=== PATIENT | female | born 1960 | race Caucasian/White ===

== ENCOUNTER 2021-03-26 12:34 | Outpatient (CLI) | payer MEDICARE, SELFPAY ==
--- NOTE | ~2021-03-26 | XR_ITS ---
XR knee LT min 4V DATE: 03/26/2021 12:53 INDICATION: Left knee pain TECHNIQUE: 4 views COMPARISON: None FINDINGS: There is prominent osteoarthritic change including prominent joint space narrowing and mild particular spurring at the medial compartment. There is mild to moderate osteoarthritis at the pineda lofemoral compartment. Osteopenia. No fracture, dislocation, periosteal reaction or bone destruction. No radiopaque intra-articular loos e body or chondrocalcinosis is evident. No knee joint effusion is evident. IMPRESSION: Osteopenia Osteoarthritic arthritis involving patellofemoral and particularly the medial compartments Reviewed, dictated and finalized at location A. IMPRESSION: Osteopenia Osteoarthritic arthritis involving patellofemoral and particularly the medial c ompartments
== END 2021-03-26 12:35 | disposition home or self-care (01) ==
LOC: ANHBWCIMG 12:35
PROVIDERS: Visit Provider Orthopaedic Surgery
DX: M25.562 Pain in left knee (principal); M85.862 Other specified disorders of bone density and structure, left lower leg; M17.12 Unilateral primary osteoarthritis, left knee
CPT/HCPCS: 73564

== ENCOUNTER 2021-05-18 12:28 | Outpatient (CLI) | payer MEDICARE, SELFPAY ==
--- NOTE | ~2021-05-18 | CT_ITS ---
EXAMINATION: CT abdomen pelvis wo/w con DATE: 05/18/2021 13:21 INDICATION: Gross hematuria TECHNIQUE: Computed tomography (CT) of the abdomen and pelvis was performed without and subsequently with 130 cc Omnipaque 350 intravenous contrast. Automated exposure control and iterative reconstructi on technique were employed. Exam dose: 2731.61 mGy-cm total exam DLP. COMPARISON: 03/28/2019 CT abdomen pelvis 05/28/2021 KUB FINDINGS: The lung bases are clear of infiltrate or consolidation. Normal heart size. No pericardial or pleural effusion. Small sliding hiatal hernia. Postoperative changes of the stomach. No hepatic, splenic, pancreatic, adrenal space-occupying mass lesion. The gallbladder is present. No bile duct or pancreatic duct dilatation. Probable 7 mm upper pole right renal cyst. There are 4 left renal cyst, the largest measuring up to approximately 1.7 cm. No suspicious renal mass lesion or filling defect of the renal collecting systems or ureters or urina ry bladder is evident. There are 2 pinpoint nonobstructing calculi of the right kidney and one pinpoint nonobstructing calcu seda of the left kidney. No ureteral calculus or hydroureteronephrosis. Normal caliber of the abdominal aorta. No intraperitoneal or retroperitoneal or pelvic mass lesion or adenopathy or ascites. Normal appendix. There are numerous diverticula of the sigmoid and descending colon, splenic flexure, occasional trans verse colon and ascending colon diverticula. There is no CT evidence of diverticulitis. No bowel obst ruction, bowel wall thickening, pneumatosis or intraperitoneal free air. The uterus is unremarkable except for probable small calcified uterine fibroids. The adnexal areas ar e unremarkable. The urinary bladder appears normal. Degenerative changes of the thoracic and lumbar spine including severe degenerative disc disease at L 5-S1 in particular. IMPRESSION: 2 pinpoint nonobstructing right renal calculi and one pinpoint nonobstructing left renal calculus Renal cysts, primarily on the left, measuring up to 1.7 cm Diverticulosis of left and right colon; no CT evidence of diverticulitis Small sliding hiatal hernia Reviewed, dictated and finalized at Location A. Reviewed, dictated and finalized at location A. IMPRESSION: 2 pinpoint nonobstructing right renal calculi and one pinpoint non obstructing left renal calculus Renal cysts, primarily on the left, measuring up to 1.7 cm Diverticulosis of left and right colon; no CT evidence of diverticulitis Small sliding hiatal hernia
--- NOTE | ~2021-05-18 | XR_ITS ---
XR abdomen/kub 1V 05/18/2021 12:51 INDICATION: Hematuria TECHNIQUE: KUB COMPARISON: 06/24/2019 FINDINGS: Bowel gas pattern is normal. There is no evidence of free air, mass, organomegaly, ascites or obstruction. No abnormal calculi are seen. There are pelvic calcifications, likely phleboliths. The bones appear intact. IMPRESSION: 1: No acute abdominal abnormality identified. Reviewed, dictated and finalized at location A.
[2021-05-18 13:06] LABS: Estimated Glomerular Filt Rate 51
== END 2021-05-18 12:29 | disposition home or self-care (01) ==
LOC: ANHIMG 12:31
PROVIDERS: PCP Family Medicine; Visit Provider Nurse Practitioner Adult Health
DX: R31.0 Gross hematuria (principal); N28.1 Cyst of kidney, acquired; K44.9 Diaphragmatic hernia without obstruction or gangrene; K57.30 Diverticulosis of large intestine without perforation or abscess without bleeding
CPT/HCPCS: 74018; 74178; Q9967

== ENCOUNTER 2022-05-31 13:09 | Emergency (ER) | payer MEDICARE, SELFPAY ==
--- NOTE | 2022-05-31 13:17 | ED.FEMALEGU ---
HPI - Female Genitourinary General Chief complaint: Urogenital-Female Stated complaint: Urinary Problem Time Seen by Provider: 05/31/22 13:18 Source: patient and RN notes reviewed History of Present Illness HPI Narrative: Patient is 61-year-old female who presents the urgent care with complaints of a possible UTI. Patient states that she has had some burning, frequency, right flank pain and some suprapubic pressure for approximately 2 months off-and-on. Patient states that it is gotten worse in the last 2 weeks. Patient states that she takes Tylenol PM daily for her pains. States that she does have a history of kidney stones and last she noted the CT showed 3 stones floating in the bladder . Patient denies any blood in the urine, nausea, vomiting, fever. No other acute complaints. No acute distress noted. Patient aware of the plan of care. Some parts of this dictation were generated by voice recognition software and may contain typographical and/or grammatical inaccuracies. Related Data Allergies Allergy/AdvReac Type Severity Reaction Status Date / Time Iodinated Contrast Media Allergy Unknown Itching Verified 03/26/21 12:59 NSAIDS (Non-Steroidal AdvReac Unknown GASTRIC Verified 03/26/21 12:59 Anti-Inflamma BYPASS-NOT TO TAKE EVER GAS AdvReac Unknown N&V Uncoded 03/26/21 12:59 Review of Systems Review of Systems: CONSTITUTIONAL: Denies fever, chills, or sweats. EYES: Denies visual changes, redness, or discharge. ENT: Denies rhinorrhea, congestion, sore throat, or otalgia. CARDIOVASCULAR: Denies chest pain, palpitations, or edema. RESPIRATORY: Denies cough or dyspnea. GASTROINTESTINAL: Denies abdominal pain, nausea, vomiting, or diarrhea. GENITOURINARY: Reports of dysuria, urinary frequency and suprapubic pressure SKIN: Denies rash or itching. MUSCULOSKELETAL: Reports of right flank pain NEUROLOGIC: Denies headache, numbness, or weakness. All other systems reviewed are negative, except as documented in HPI. COUNTS INCLUDE 234 BEDS AT THE [facility] Past Medical History Medical History (Updated 05/31/22 @ 13:49 by KODY Asher) Arthritis Diabetes GERD (gastroesophageal reflux disease) History of adverse reaction to anesthesia Kidney stones Osteoarthritis of left knee Osteoporosis Rheumatoid arthritis Weakness of left lower extremity Wears glasses Weight gain Surgical History Surgical History (Updated 03/27/21 @ 08:29 by Catherine Vivar, RT(R)) History of right knee joint replacement 2018, Dr. Campos Family History Family History (Updated 03/27/21 @ 08:29 by Catherine Vivar RT(R)) Sibling Carcinoma of colon Mother Acute myocardial infarction Other Arthritis Cerebrovascular accident Neuropathy Social History Social History (Updated 03/27/21 @ 08:30 by Catherine Vivar RT(R)) Smoking status: Never smoker Alcohol intake: current Drinks per week: 1 Gender identity (if verbalized by the patient): Female Comments At the time of my signature, I reviewed and agree with the nursing past medical, surgical, social, and family history. There is no relevant family history pertinent to the patient complaint. Exam Narrative: GENERAL: This is a well-nourished, well-developed patient, in no apparent distress. HEAD: normocephalic, atraumatic. EYES: PERRL. Sclera clear/white. Vision is grossly intact. EARS: External ears normal NOSE: External nose normal with no obvious nasal discharge, nares without redness, no rhinorrhea. THROAT: Mucous membranes moist NECK: Neck supple CARDIOVASCULAR: Regular rate and rhythm without murmurs, gallops, or rubs. RESPIRATORY: Clear to auscultation. Breath sounds equal bilaterally. No wheezes, rales, or rhonchi. GASTROINTESTINAL: Abdomen soft, mild suprapubic tenderness, nondistended. Bowel sounds are active.. SKIN: warm, intact with no suspicious lesions or rash, good texture and turgor. NEURO: awake, alert, and oriented to person, place and time. There wer
[2022-05-31 13:21] VITALS: BP 171/77; PULSE 56; RESP 14; TEMP 36.6; O2SAT 98
== END 2022-05-31 13:53 | disposition home or self-care (01) ==
PROVIDERS: Emergency Provider Nurse Practitioner Family; PCP Family Medicine
DX: R82.90 Unspecified abnormal findings in urine (principal); Z87.442 Personal history of urinary calculi; E11.9 Type 2 diabetes mellitus without complications; K21.9 Gastro-esophageal reflux disease without esophagitis; M81.0 Age-related osteoporosis without current pathological fracture; M06.9 Rheumatoid arthritis, unspecified; M17.12 Unilateral primary osteoarthritis, left knee
CPT/HCPCS: 81003; 87077; 87086; 87186; 99213; G0463

== ENCOUNTER 2022-09-26 13:06 | Outpatient (CLI) | payer MEDICARE, SELFPAY ==
[2022-09-26 13:33] LABS: Hematocrit 45.7 % (37.0-47.0); Hemoglobin 15.6 g/dL (12.0-15.0); Mean Corpuscular HGB Conc 34.1 g/dl (32-36); Mean Corpuscular Hemoglobin 32.2 pg (26-34); Mean Corpuscular Volume 94.4 fl (80-100); Mean Platelet Volume 9.9 fl (7.4-10.4); Platelet Count Result 187 k/mm3 (150-375); Red Blood Count 4.84 M/mm3 (4.2-5.4); Red Cell Distribution Width 13.2 % (11.5-14.5); White Blood Count 6.8 K/mm3 (4.5-10.0)
[2022-09-26 13:44] LABS: Alanine Aminotransferase 33 U/L (6-35); Albumin Level 4.4 g/dL (3.5-5.1); Alkaline Phosphatase 109 U/L (38-126); Anion Gap 9 mmol/L (8-16); Aspartate Amino Transferase 17 U/L (14-36); Bilirubin,Total 0.9 mg/dL (0.2-1.3); Blood Urea Nitrogen 19 mg/dL (7-17); Carbon Dioxide 26 mmol/L (22-30); Chloride 104 mmol/L (98-107); Cholesterol 275 mg/dL (0-200); Estimated Glomerular Filt Rate 56; Glucose 159 mg/dL (65-110); HDL Direct 59 mg/dL; Potassium 4.3 mmol/L (3.4-5.0); Sodium 139 mmol/L (137-145); Triglycerides 179 mg/dL (<150)
[2022-09-26 13:55] LABS: LDL Cholesterol Direct 169 mg/dL
[2022-09-26 14:06] LABS: Hemoglobin A1C 7.5 % (<5.7)
[2022-09-26 14:13] LABS: Free T4 Free Thyroxine 1.22 ng/mL (0.78-2.19)
== END 2022-09-26 13:07 | disposition home or self-care (01) ==
PROVIDERS: PCP Family Medicine; Visit Provider Physician Assistant Medical
DX: E78.2 Mixed hyperlipidemia (principal); R73.03 Prediabetes; R53.83 Other fatigue; E03.9 Hypothyroidism, unspecified
CPT/HCPCS: 36415; 80053; 80061; 83036; 84439; 84443; 85027

== ENCOUNTER 2023-04-08 12:50 | Outpatient (CLI) | payer MEDICARE, SELFPAY ==
[2023-04-08 13:22] LABS: Alanine Aminotransferase 29 U/L (6-35); Albumin Level 4.3 g/dL (3.5-5.1); Alkaline Phosphatase 94 U/L (38-126); Anion Gap 6 mmol/L (8-16); Aspartate Amino Transferase 17 U/L (14-36); Bilirubin,Total 0.7 mg/dL (0.2-1.3); Blood Urea Nitrogen 14 mg/dL (7-17); Calcium 8.7 mg/dL (8.4-10.2); Carbon Dioxide 24 mmol/L (22-30); Chloride 108 mmol/L (98-107); Cholesterol 232 mg/dL (0-200); Estimated Glomerular Filt Rate > 60; Glucose 126 mg/dL (65-110); HDL Direct 61 mg/dL; Potassium 4.4 mmol/L (3.4-5.0); Sodium 138 mmol/L (137-145); Triglycerides 136 mg/dL (<150)
[2023-04-08 13:33] LABS: LDL Cholesterol Direct 142 mg/dL
[2023-04-08 13:41] LABS: Vitamin D 25 Hydroxy 27.7 ng/mL
== END 2023-04-08 12:51 | disposition home or self-care (01) ==
PROVIDERS: PCP Family Medicine; Visit Provider Physician Assistant Medical
DX: E55.9 Vitamin D deficiency, unspecified (principal); E78.2 Mixed hyperlipidemia; E53.8 Deficiency of other specified B group vitamins; E03.9 Hypothyroidism, unspecified
CPT/HCPCS: 36415; 80053; 80061; 82306; 82607; 84443

== ENCOUNTER 2023-04-18 07:56 | Outpatient (CLI) | payer MEDICARE, SELFPAY ==
[2023-04-18 08:27] LABS: Bacteria Urine 3+ /hpf; Non Pathogenic Casts 0-2; RBC Urine 0-2 /hpf (0-2); Squamous Epithelial Cell Urine Occasional /hpf (Few); WBC Urine 21-50 /hpf
[2023-04-18 08:47] LABS: Appearance Urine Cloudy (Clear); Bilirubin Urine Negative (Negative); Blood Urine Negative (Negative); Color Urine Yellow (Yellow); Glucose Urine UA Negative (Negative); Ketones Urine Negative (Negative); Leukocyte Esterase Ur 1+ LEU/UL (Negative); Nitrate Urine Positive (Negative); Protein Urine Negative (Negative); Specific Grav Ur 1.024 (1.001-1.035)
[2023-04-18 08:53] LABS: Add Urine Microscopic? YES
[2023-04-18 09:05] LABS: Hemoglobin A1C 6.3 % (<5.7)
[2023-04-19 06:58] LABS: Creatinine Urine 195.4 mg/dL
[2023-04-19 07:02] LABS: MALB Creatinine Ratio 3.8 mg/g (0-30); Microalbumin Urine Random 7.4 mg/L (0-16.7)
== END 2023-04-18 07:57 | disposition home or self-care (01) ==
LOC: ANHLAB 07:57
PROVIDERS: PCP Family Medicine; Visit Provider Physician Assistant Medical
DX: R30.0 Dysuria (principal); E11.9 Type 2 diabetes mellitus without complications
CPT/HCPCS: 36415; 81001; 82043; 83036; 87077; 87086; 87186

== ENCOUNTER 2024-01-03 14:50 | Emergency (ER) | payer MEDICARE, SELFPAY ==
--- NOTE | ~2024-01-03 | CT_ITS ---
EXAMINATION: CT abdomen pelvis wo con DATE: 01/03/2024 16:06 INDICATION: LLQ abdominal pain/nausea x1 week TECHNIQUE: Computed tomography (CT) of the abdomen and pelvis was performed without intravenous contr ast. Automated exposure control and iterative reconstruction technique were employed. The dose-length product was 1312.09 mGy-cm. COMPARISON: 05/18/2021. FINDINGS: Lower thorax: Unremarkable Liver: The superior most aspect of the liver dome is excluded from the [id number]. Enlarged liver. Biliary/Gallbladder: Dependent sludge or stones. Focal subcentimeter hyperdensity in the gallbladder fundus may represent a stone or polyp. No bile duct dilation. Pancreas: No mass or duct dilation. Spleen: Normal. Adrenals:No mass. Kidneys: No suspicious mass, obstructing stone, or hydronephrosis. Simple left renal cysts. Punctate bilateral nonobstructing calculi. GI tract: Prior gastric surgery. No small or large bowel dilation. Normal appendix. Multiple colonic diverticuli. Inflamed diverticulum in the mid sigmoid in the left lower quadrant. Mesentery/Peritoneum: No ascites, mass, or free air. Inflammatory stranding and segmental areas of di lation of a mesenteric vein extending from the sigmoid diverticulitis, nearly to the superior mesente apryl vein bifurcation. Retroperitoneum: No mass. Atherosclerotic abdominal aortic and/or arterial calcifications. Pelvis: Decompressed urinary bladder. Calcified fibroids. Normal ovaries. Soft Tissues: Soft tissues and body wall unremarkable. Bones: No acute osseous finding. IMPRESSION: Hepatomegaly. 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 Reviewed, dictated and finalized at location K. CCO DRUMMER
[2024-01-03 14:59] VITALS: BP 155/85; PULSE 79; RESP 20; TEMP 36.9; O2SAT 94
[2024-01-03 15:06] LABS: Glucose Point of Care 187 mg/dl (65-105)
--- NOTE | 2024-01-03 15:13 | ED.ABDPAIN ---
HPI - Abdominal Pain General Chief Complaint: Abdominal Pain Stated Complaint: abdominal pain Time Seen by Provider: 01/03/24 14:56 Source: patient Mode of arrival: ambulatory Limitations: no limitations History of Present Illness HPI narrative: patient is a 63-year-old female with significant past medical history that presents today for abdominal pain. Patient has had abdominal pain in the left lower quadrant for the last few days now. She states that as she has not been able to he is only able to drink water. She says she dries he is when she tries to eat. She feels very bloated has left lower quadrant abdominal pain. She does have a history of diverticulitis in the past this was a long time ago however. She is diabetic has not been checking her sugars as well. MD elicited complaint: abdominal pain Pertinent past history: diverticulitis Onset (ago): week(s) Pain Consistency: constant Location: LLQ Severity: mild Quality: aching Radiation: epigastric Migration to: no migration Exacerbating factors: nothing Relieving factors: nothing Associated symptoms: nausea and vomiting Related Data Allergies Allergy/AdvReac Type Severity Reaction Status Date / Time Iodinated Contrast Media Allergy Unknown Itching Verified 01/03/24 14:58 NSAIDS (Non-Steroidal AdvReac Unknown GASTRIC Verified 01/03/24 14:58 Anti-Inflamma BYPASS-NOT TO TAKE EVER Review of Systems Review of Systems: All systems reviewed & are unremarkable except as noted in HPI and below Constitutional: Constitutional: Reports as per HPI Eyes: Eyes: Reports no additional eye complaints ENT: Reports system reviewed and no additional complaints, except as documented Cardiovascular: Cardiovascular: Reports no additional cardiovascular complaints Respiratory: Respiratory: Reports no additional respiratory complaints Gastrointestinal: Gastrointestinal: Reports as per HPI, Reports abdominal pain, Reports constipation, Reports nausea and Reports vomiting Musculoskeletal: Musculoskeletal: Reports no additional musculoskeletal complaints Integumentary/Breasts: Skin/Breast: Reports system reviewed and no additional complaints, except as docu Neurologic: Reports system reviewed and no additional complaints, except as documented Psychiatric: Psychiatric: Reports no additional psychiatric complaints Endocrine: Endocrine: Reports no additional endocrine complaints Hematologic/Lymphatic: Hematologic/Lymphatic: Reports no additional hematologic/lymphatic complaints Allergic/Immunologic: Allergic/Immunologic: Reports no additional allergic/immunologic complaints PMFSH Past Medical History Medical History Arthritis Diabetes GERD (gastroesophageal reflux disease) History of adverse reaction to anesthesia History of bruising easily Hypothyroid Hypothyroidism (acquired) Kidney stones Morbid obesity with BMI of 40.0-44.9, adult Obesity (BMI 30-39.9) Osteoarthritis of left knee Osteoporosis Rheumatoid arthritis Weakness of left lower extremity Wears glasses Weight gain Surgical History Surgical History History of carpal tunnel release History of right knee joint replacement 2017, Dr. Campos History of sleeve gastrectomy 2013 Family History Family History Sibling Carcinoma of colon Mother Acute myocardial infarction Diabetes mellitus Hypertension Father Hypertension Alcoholism Grandparent Diabetes mellitus Grandparent Breast cancer Other Arthritis Cerebrovascular accident Neuropathy Social History Social History Smoking status: Never smoker Alcohol intake: current Alcohol use details: seldom; socially Substance use: never Substance use type: does not use Lack of Transportation: No [place]
[2024-01-03 15:45] LABS: Bilirubin Urine 2+ (Negative); Blood Urine 2+ (Negative); Glucose Urine UA Negative (Negative); Ketones Urine 1+ (Negative); Leukocyte Esterase Ur Negative LEU/UL (Negative); Nitrate Urine Negative (Negative); Protein Urine 2+ (Negative); Specific Grav Ur >= 1.030 (1.010-1.020); pH Urine 5.5 (5.0-8.0)
[2024-01-03] MEDS: SODIUM CHLORIDE 0.9% IV 1,000 ML 999 ML IV CONT (15:51)
[2024-01-03] MEDS: ONDANSETRON INJ 4 MG/2 ML VIAL IV PUSH (15:51)
[2024-01-03] MEDS: KETOROLAC 30 MG/ML VIAL (*BKC) IV PUSH (15:52)
[2024-01-03 15:53] LABS: Basophils Absolute Auto 0.08 K/mm3 (0.00-0.10); Basophils Percent Auto 0.5 % (0.0-1.0); Eosinophils Absolute Auto 0.04 K/mm3 (0.02-0.50); Eosinophils Percent Auto 0.3 % (1.0-6.0); Hematocrit 43.3 % (35.0-49.0); Hemoglobin 14.6 g/dL (12.0-15.0); Immature Granulocyte Absolute 0.19 K/mm3 (0.00-0.00); Immature Granulocyte Percent A 1.3 % (0.0-0.0); Lymphocytes Absolute Auto 1.71 K/mm3 (1.10-4.50); Lymphocytes Percent Auto 11.3 % (18.0-42.0); Mean Corpuscular HGB Conc 33.7 g/dL (32.0-36.0); Mean Corpuscular Hemoglobin 31.1 pg (27.0-31.0); Mean Corpuscular Volume 92.3 fL (78.0-102.0); Mean Platelet Volume 10.8 fl (9.2-11.8); Monocytes Absolute Auto 1.11 K/mm3 (0.10-0.90); Monocytes Percent Auto 7.3 % (2.0-11.0); Neutrophils Percent Auto 79.3 % (50.0-70.0); Platelet Count Result 131 K/mm3 (150-420); Red Blood Count 4.69 M/mm3 (4.20-5.40); Red Cell Distribution Width 14.5 % (11.6-14.4); White Blood Count 15.2 K/mm3 (4.8-10.8)
[2024-01-03 16:06] LABS: Lactic Acid Reflex 1.3 mmol/L (0.4-2.0)
[2024-01-03 16:07] LABS: Add Urine Microscopic? YES; Amorphous Sediment Urine Moderate; Appearance Urine Slightly Cloudy (Clear); Color Urine Dark Orange (Yellow); Squamous Epithelial Cell Urine Occasional /hpf (Few)
[2024-01-03 16:08] LABS: Granular Casts Urine 15-19 /lpf; Mucus Urine Heavy /lpf
[2024-01-03 16:12] LABS: Alanine Aminotransferase 49 U/L (14-59); Albumin Level 2.6 g/dL (3.4-5.0); Alkaline Phosphatase 233 U/L (46-116); Anion Gap 13 mmol/L (8-16); Aspartate Amino Transferase 20 U/L (15-37); Bilirubin,Total 0.9 mg/dL (0.00-1.00); Blood Urea Nitrogen 23 mg/dL (7-18); Calcium 8.8 mg/dL (8.5-10.1); Carbon Dioxide 23 mmol/L (21-32); Chloride 98 mmol/L (98-108); Estimated CRCL calculation 68 ml/min; Estimated Glomerular Filt Rate 59; Glucose 200 mg/dL (70-99); Lipase 24 U/L (16-77); Osmolality Calculated 287 mOsm/kg (285-295); Sodium 134 mmol/L (136-145); Total Protein 7.2 g/dL (6.4-8.2)
[2024-01-03 16:32] VITALS: BP 129/65; PULSE 69; RESP 14; TEMP 36.7; O2SAT 99
--- NOTE | 2024-01-03 17:47 | PC.NURSE ---
pt report given to 2nd floor rn. rn requests to speak with erp. erp notified
[2024-01-03] MEDS: APIXABAN 2.5 MG TABLET 5 MG PO (18:46)
[2024-01-03] MEDS: CIPROFLOXACIN 500 MG TAB PO (18:47)
[2024-01-03] MEDS: metroNIDAZOLE 250 MG TABLET 500 MG PO (18:47)
[2024-01-03 18:54] VITALS: BP 131/80; PULSE 67; RESP 16; O2SAT 99
== END 2024-01-03 18:54 | disposition home or self-care (01) ==
PROVIDERS: Emergency Provider Family Medicine; PCP Physician Assistant Medical
DX: K57.92 Diverticulitis of intestine, part unspecified, without perforation or abscess without bleeding (principal); K55.049 Acute infarction of large intestine, extent unspecified; E11.9 Type 2 diabetes mellitus without complications; E03.9 Hypothyroidism, unspecified
CPT/HCPCS: 36415; 74176; 80053; 81001; 82948; 83605; 83690; 85025; 96361; 96374; 96375; 99284; A9270; J1885; J2405; J7030

== ENCOUNTER 2024-01-06 10:01 | Inpatient (IN) | payer MEDICARE, SELFPAY ==
[2024-01-06] VITALS (33 sets, daily range): BP systolic 123–165; BP diastolic 46–79; PULSE 63–75; RESP 14–18; TEMP 36.2–36.7; O2SAT 95–100; BMI 37.7
--- NOTE | ~2024-01-06 | XR_ITS ---
EXAMINATION: XR abdomen obstructive series DATE: 01/14/2024 13:09 INDICATION: Left lower quadrant abdominal pain. Constipation. TECHNIQUE: Upright and supine views of the abdomen on 3 radiographs were obtained. COMPARISON: CT abdomen and pelvis 01/10/2024 FINDINGS: There are no dilated loops of bowel. There is a moderate volume of stool in the colon. No f ree intraperitoneal gas. IMPRESSION: 1. Nonobstructive bowel gas pattern. Reviewed, dictated and finalized at location E. BODY REPAIR TEACHER
--- NOTE | ~2024-01-06 | CT_ITS ---
EXAMINATION: CT abdomen pelvis wo con DATE: 01/06/2024 12:04 INDICATION: Diverticulitis. Low back pain. TECHNIQUE: Computed tomography (CT) of the abdomen and pelvis was performed without intravenous contr ast. Automated exposure control and iterative reconstruction technique were employed. The dose-length product was 1212.84 mGy-cm. COMPARISON: CT abdomen and pelvis 01/03/2024, 05/18/2021 FINDINGS: The visualized portions of the lung bases demonstrate mild atelectasis. No pleural effusion . There are changes of gastric sleeve procedure. There is a small sliding hiatal hernia. The heart si ze is normal. No pericardial effusion. There is diffuse hepatic steatosis. There is focal wall thicke bernardo of the gallbladder fundus, consistent with adenomyomatosis. The spleen, pancreas, and adrenal gl ands are normal. There is a 1 mm stone in right kidney. There are cysts in left kidney measuring up t o 2.0 cm. There is cortical thinning of left kidney. There is a 2 mm stone in left kidney. There are scattered diverticula in the colon. There is fat stranding around the sigmoid colon, consistent with diverticulitis. Inferior mesenteric vein is enlarged with surrounding fat stranding. There are no pat hologically enlarged lymph nodes. There is mild thoracic spondylosis and severe lumbar spondylosis. IMPRESSION: 1. Sigmoid diverticulitis. No perforation or abscess. 2. 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 Reviewed, dictated and finalized at location A. VATOR MACHINE OPERATOR IMPRESSION: 1. Sigmoid diverticulitis. No perforation or abscess. 2. 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
--- NOTE | ~2024-01-06 | CT_ITS ---
CT of the Abdomen and Pelvis: Indication: Abdominal pain Technique: 2.5 mm axial scans were obtained through the abdomen and pelvis following intravenous adm inistration of 100 cc of Omnipaque 350. Dose reduction technique was used on this scan by utilizing a utomated exposure control and iterative reconstruction technique. The dose-length product (DLP) was 1 087.08 mGy-cm. COMPARISON: 01/06/2024 Findings: Scans through the lung bases are unremarkable. The liver, spleen, pancreas, gallbladder, adrenals and kidneys are within normal limits. No evidence of aortic aneurysm. No lymphadenopathy. There is focal sigmoid diverticulitis. There is prominent, nonenhancing inferior mesenteric vein, com patible thrombosis, with surrounding fat stranding. No abscess or free air. No bowel obstruction. Images through the pelvis were performed. Urinary bladder unremarkable. No adnexal mass seen. No pelv ic ascites. Impression: Sigmoid diverticulitis with associated inferior mesenteric vein thrombosis. No abscess or free air. Reviewed, dictated and finalized at [facility]. [employer] Impression: Sigmoid diverticulitis with associated inferior mesenteric vein thrombosis. No abscess or free air.
--- NOTE | ~2024-01-06 | CT_ITS ---
EXAMINATION: CT abdomen pelvis w con DATE: 01/18/2024 14:54 INDICATION: Diverticulitis. TECHNIQUE: Computed tomography (CT) of the abdomen and pelvis was performed with 100 mL Omnipaque 350 intravenous contrast. Automated exposure control and iterative reconstruction technique were employe d. The dose-length product was 1095.31 mGy-cm. COMPARISON: CT abdomen and pelvis 01/10/2024 FINDINGS: The visualized portions of the lung bases demonstrate mild atelectasis. No pleural effusion . The heart size is normal. No pericardial effusion. There is a small sliding hiatal hernia. There ar e surgical changes of the stomach. The liver is normal. The gallbladder, pancreas, spleen, adrenal gl ands are normal. There is cortical thinning of the kidneys. There are cysts in left kidney measuring up to 2.1 cm. There are scattered diverticula in the colon. There is fat stranding with foci of free intraperitoneal gas near the sigmoid colon. There is phlegmon along the course of the inferior mesent [place]go vein. There are no dilated loops of bowel. The appendix is normal. There is calcified atheroscle rosis of the aorta and many of the other arteries. There are no pathologically enlarged lymph nodes. There is no free intraperitoneal fluid. There are foci of subcutaneous gas in anterior abdominal wall , which may be an injection sites. There is severe lumbar spondylosis. IMPRESSION: 1. Sigmoid diverticulitis with microperforation. No significant drainable fluid. Reviewed, dictated and finalized at location [facility]. IMPRESSION: 1. Sigmoid diverticulitis with microperforation. No significant drainable fluid .
--- NOTE | ~2024-01-06 | CT_ITS ---
EXAMINATION: CT abdomen pelvis w con DATE: 01/10/2024 21:08 INDICATION: INCREASED abd pain TECHNIQUE: Computed tomography (CT) of the abdomen and pelvis was performed with 100 mL Omnipaque-350 intravenous contrast. Automated exposure control and iterative reconstruction technique were employe d. The dose-length product was 1203.09 mGy-cm. COMPARISON: 01/07/2024. FINDINGS: Lower thorax: Unremarkable Liver: Normal. Biliary/Gallbladder: Gallbladder contains sludge or stones. Mild gallbladder wall distention. No bile duct dilation. Pancreas: No mass or duct dilation. Spleen: Normal. Adrenals:No mass. Kidneys: No suspicious mass, obstructing stone, or hydronephrosis. Multiple simple left renal cysts. GI tract: Small hiatal hernia. Prior gastric surgery. Mild distal esophageal and gastric wall edema. No small or large bowel dilation. Normal appendix. Sigmoid diverticulitis. Multifocal lobular fluid a nd gas collections extending along the sigmoid mesentery, with mild peripheral enhancement but no thi ck rind-like areas of enhancement. Focal gas collections noted within the inferior mesenteric vein br anches. Inferior mesenteric vein thrombosis. No thrombus extension detected. Mesentery/Peritoneum: No ascites, mass, or free air. Retroperitoneum: No mass. Pelvis: Pelvic organs are within normal limits. Soft Tissues: Soft tissues and body wall unremarkable. Bones: No acute osseous finding. IMPRESSION: Sigmoid diverticulitis, complicated by likely septic thrombophlebitis of the inferior mesenteric vein and the branches that drain that region of the sigmoid. Early multifocal abscess formation within th e sigmoid mesentery is suspected. No evidence of progression of the mesenteric thrombosis proximally. Gallbladder sludge/stones with hydrops, presumably related to fasting. Correlate with biliary labs an d/or symptoms of right upper quadrant pain. Mild esophagitis/gastritis. Reviewed, dictated and finalized at location [facility]. [employer] IMPRESSION: Sigmoid diverticulitis, complicated by likely septic thrombophlebitis of the in ferior mesenteric vein and the branches that drain that region of the sigmoid. Early multifocal abscess formation within the sigmoid mesentery is suspected. No evidence of progression of the mesenteric thrombosis proximally. Gallbladder sludge/stones with hydrops, presumably related to fasting. Correlat e with biliary labs and/or symptoms of right upper quadrant pain. Mild esophagitis/gastritis.
--- NOTE | 2024-01-06 11:52 | ED.BACK ---
HPI - Back Pain/Injury General Chief Complaint: Back Pain/Injury Stated Complaint: Back pain Time Seen by Provider: 01/06/24 11:42 History of Present Illness HPI Narrative: 63-year-old female presenting to the emergency department for evaluation of persistent back pain. Patient states symptoms initially started approximately 9 days ago. Patient presented to [facility] on Friday and was diagnosed with diverticulitis and mesenteric thrombus. Patient was prescribed Cipro Flagyl and Eliquis. Patient did start the antibiotics but did not start the Eliquis. Patient states that she feels the pain medications are not helping with her back pain so patient presented to the emergency department for further evaluation. Patient reports associated decreased p.o. intake Patient does report prior history of diverticulitis Related Data Home Medications Medication Instructions Recorded Confirmed metformin 500 mg tablet 500 mg PO DAILY 01/06/24 01/06/24 Allergies Allergy/AdvReac Type Severity Reaction Status Date / Time Iodinated Contrast Media Allergy Unknown Itching Verified 01/06/24 18:34 NSAIDS (Non-Steroidal AdvReac Unknown GASTRIC Verified 01/06/24 18:34 Anti-Inflamma BYPASS-NOT TO TAKE EVER Review of Systems Review of Systems: All systems reviewed & are unremarkable except as noted in HPI and below PMFSH Past Medical History Medical History (Updated 01/06/24 @ 14:23 by Mateusz Espinoza MD) Arthritis Diabetes GERD (gastroesophageal reflux disease) History of adverse reaction to anesthesia History of bruising easily Hypothyroid Hypothyroidism (acquired) Kidney stones Morbid obesity with BMI of 40.0-44.9, adult Obesity (BMI 30-39.9) Osteoarthritis of left knee Osteoporosis Pain Rheumatoid arthritis Weakness of left lower extremity Wears glasses Weight gain Surgical History Surgical History History of carpal tunnel release History of right knee joint replacement 2017, Dr. Campos History of sleeve gastrectomy 2013 Family History Family History Sibling Carcinoma of colon Mother Acute myocardial infarction Diabetes mellitus Hypertension Father Hypertension Alcoholism Grandparent Diabetes mellitus Grandparent Breast cancer Other Arthritis Cerebrovascular accident Neuropathy Social History Social History Smoking packs per day: 1 Smoking cigarettes per day: 20.0 Years smoked: 10 Smoking pack-years: 10.00 Smoking status: Former smoker Alcohol intake: current Drinks per week: 4 Alcohol use details: seldom; socially Substance use: never Substance use type: does not use Do You Feel Safe in your Home?: Yes Lack of Transportation: No Lack of Food: Never True Current Housing: I Have Housing Concerned About Future Housing: No Difficulty Paying Gas/Electric Bills: No Difficulty Paying for Meds: No Currently Unemployed: No Education: Decline to Answer Difficulty w/ Childcare or Family Care: No Gender identity (if verbalized by the patient): Female Spiritual care concerns: No Exam Narrative: APPEARANCE: Well appearing, no pain, no distress, well-nourished. HEAD: normocephalic, atraumatic. EYES: PERRLA/EOMI, conjunctivae clear. NECK: Supple. No adenopathy, no masses. RESPIRATORY: Airway patent, respirations nonlabored. Clear to auscultation bilaterally, no rales, rhonchi, wheezing. CARDIOVASCULAR: Regular rate and rhythm without murmurs rubs or gallops. ABDOMINAL: Soft, nontender, nondistended, normal bowel sounds MUSCULOSKELETAL: Moves all extremities. Strength/ROM intact, No edema, No calf tenderness. NEURO: Alert. Cranial nerves II through XII intact. Grossly intact Course Course Emergency Course: Patient was admitted for CT in a pelvic with
[2024-01-06] MEDS: SODIUM CHLORIDE 0.9% IV 1,000 ML 999 ML IV CONT (12:17)
[2024-01-06] MEDS: HYDROmorphone HCL INJ (*CRX) 1 MG/ML SYR 0.5 MG IV PUSH ×3 (12:18→21:06)
[2024-01-06] MEDS: ONDANSETRON INJ 4 MG/2 ML VIAL IV PUSH ×2 (12:18→21:06)
[2024-01-06 12:30] LABS: Basophils Absolute Auto 0.1 K/mm3 (0.0-0.1); Basophils Percent Auto 0.7 % (0.2-1.2); Eosinophils Percent Auto 0.2 % (0-4.4); Hematocrit 47.4 % (37.0-47.0); Hemoglobin 14.8 g/dL (12.0-15.0); Immature Granulocyte Absolute 0.31 K/mm3 (0.00-0.031); Immature Granulocyte Percent A 1.9 % (0-0.5); Lymphocytes Percent Auto 8.1 % (18.3-44.2); Mean Corpuscular HGB Conc 31.2 g/dl (32-36); Mean Corpuscular Hemoglobin 30.8 pg (26-34); Mean Corpuscular Volume 98.8 fl (80-100); Mean Platelet Volume 10.3 fl (7.4-10.4); Monocytes Absolute Auto 0.8 K/mm3 (0.1-0.6); Monocytes Percent Auto 4.7 % (2.6-8.5); Neutrophils Absolute Auto 13.5 K/mm3 (1.3-6.7); Neutrophils Percent Auto 84.4 % (45.5-73.1); Platelet Count Result 258 k/mm3 (150-375); Red Cell Distribution Width 15.1 % (11.5-14.5); White Blood Count 16.1 K/mm3 (4.5-10.0)
[2024-01-06 12:43] LABS: INR 1.1; Prothrombin Time 14.8 Seconds (11.1-14.7)
[2024-01-06 12:44] LABS: Partial Thromboplastin Time 25.5 SECONDS (22.3-36.8)
[2024-01-06 13:08] LABS: Lactic Acid Reflex 1.1 mmol/L (0.7-2.0)
[2024-01-06] MEDS: methylPREDNISolone SOD SUCC 40 MG VIAL IV PUSH ×3 (13:10→21:06)
[2024-01-06] MEDS: diphenhydrAMINE HCl INJ 50 MG/ML VIAL IV PUSH (13:10)
[2024-01-06 13:23] LABS: Appearance Urine Clear (Clear); Bacteria Urine None Seen /hpf; Bilirubin Urine Negative (Negative); Color Urine Dark Yellow (Yellow); Glucose Urine UA 1+ mg/dL (Negative); Ketones Urine 4+ mg/dL (Negative); Leukocyte Esterase Ur Trace LEU/UL (Negative); Nitrate Urine Negative (Negative); Non Pathogenic Casts 0-2; Protein Urine 1+ mg/dL (Negative); Specific Grav Ur 1.025 (1.001-1.035); Squamous Epithelial Cell Urine None seen /hpf (Few); pH Urine 5.5 (5.0-9.0)
[2024-01-06 13:41] LABS: Add Urine Microscopic? YES
[2024-01-06 14:09] LABS: Alanine Aminotransferase 25 U/L (6-35); Albumin Level 3.4 g/dL (3.5-5.1); Alkaline Phosphatase 171 U/L (38-126); Anion Gap 8 mmol/L (8-16); Aspartate Amino Transferase 16 U/L (14-36); Bilirubin,Total 0.9 mg/dL (0.2-1.3); Blood Urea Nitrogen 13 mg/dL (7-17); Calcium 8.3 mg/dL (8.4-10.2); Carbon Dioxide 25 mmol/L (22-30); Chloride 103 mmol/L (98-107); Estimated CRCL calculation 87 ml/min; Estimated Glomerular Filt Rate > 60; Glucose 150 mg/dL (65-110); Lipase 49 U/L (23-300); Potassium 4.1 mmol/L (3.4-5.0); Sodium 136 mmol/L (137-145)
[2024-01-06] MEDS: HEPARIN SOD/D5W 100 UNITS/ML 25,000 UNITS/250 ML BAG 14 UNITS IV CONT (14:57)
[2024-01-06] MEDS: HEPARIN SODIUM 5,000 UNITS/ML VIAL 6000 UNITS IV PUSH ×2 (14:58→22:10)
--- NOTE | 2024-01-06 15:53 | PC.NURSE ---
clear liquid tray ordered at 1550
--- NOTE | 2024-01-06 18:16 | ADMGEN ---
This patient, Marychuy Ziegler, was admitted to [facility] Surg Room 311-01. Patient/family oriented to hospital policies and general routines including ID bracelet, bed and alarms, visiting hours, pain management, procedures, bathroom and other care routines, personal items, smoking policy, room service/diet, and visiting hours. Information on how to activate the Rapid Response Team has been discussed. Patient/Family are encouraged to report perceived risks to care and to ask questions if they do not understand what they are told or what they should do.
--- NOTE | 2024-01-06 18:41 | PM.IMHP ---
H&P: HPI History of Present Illness Date/Time: 01/06/24 19:00 Chief Complaint: Back and abdominal pain. Narrative: This is a pleasant 63-year-old female with history of diverticulitis, gastric sleeve, gastroesophageal reflux disease, kidney stones, hypothyroidism and type 2 diabetes mellitus who presented to the emergency department via private vehicle from home for evaluation of back and abdominal pain. The patient provides the following history. She has not been feeling well for approximately 9 days and her symptoms initially started as generalized body aches, fatigue, nausea, and fever up to 102.8? F. she tested negative for influenza and COVID at that time and treated her symptoms with Tylenol and Aleve. A couple of days later she developed a constant, aching discomfort in left lower quadrant similar to previous episodes of diverticulitis. [place] [facility] [place] scan showed acute sigmoid diverticulitis with mesenteric vein thrombosis/thrombophlebitis. She was discharged home with prescriptions for ciprofloxacin, metronidazole, and apixaban with instructions to follow-up. She has been taking the antibiotics but has not yet started taking the apixaban. She came in today as she has worsening pain in the lower abdomen and pain throughout the mid to low back described as an aching pain. Her fever curve has improved. She has not had diarrhea and in fact she suffers from constipation and reports having to strain to have a small bowel movement yesterday morning. She has not noticed any blood or mucus in the stool. She denies vomiting. No dysuria or hematuria. no personal history of venous thromboembolism; she believes her mother had a blood clot related to medication when she was younger. The patient has no history of atrial fibrillation or symptoms to suggest such and has no history of malignancy. In the ED: She was afebrile on arrival with stable vital signs. Labs were significant for WBC count of 16.1, sodium 136, lactic acid 1.1. CT scan showed sigmoid diverticulitis and persist enlargement of the inferior mesenteric vein with surrounding fat stranding which is likely related to mesenteric vein thrombosis. She was started on heparin drip for the thrombosis and she is being admitted in this setting for further treatment and evaluation. Review of Systems Review of Systems: Twelve systems were reviewed and are negative except for as per HPI. [facility] Past Medical History Medical History (Updated 01/06/24 @ 22:28 by Bridget Rainey PA-C) Arthritis Gastroesophageal reflux disease Hypothyroidism (acquired) Kidney stones Obesity (BMI 30-39.9) Osteoarthritis of left knee Osteoporosis Rheumatoid arthritis Type 2 diabetes mellitus Surgical History Surgical History History of carpal tunnel release History of right knee joint replacement 2017, Dr. Campos History of sleeve gastrectomy 2013 Family History Family History Sibling Carcinoma of colon Mother Acute myocardial infarction Diabetes mellitus Hypertension Father Hypertension Alcoholism Grandparent Diabetes mellitus Grandparent Breast cancer Other Arthritis Cerebrovascular accident Neuropathy Social History Social History (Updated 01/06/24 @ 22:25 by Bridget Rainey PA-C) Social History: Code status: Full code. Smoking packs per day: 1 Smoking cigarettes per day: 20.0 Years smoked: 10 Smoking pack-years: 10.00 Smoking status: Former smoker Alcohol intake: current Drinks per week: 4 Alcohol use details: seldom; socially Substance use: never Substance use type: does not use Do You Feel Safe in your Home?: Yes Lack of Transportation: No Lack of Food: Never True Current Housing: I Have Housing Concerned About Future
[2024-01-06 19:58] LABS: Glucose Point of Care 232 mg/dl (65-105)
[2024-01-06 21:33] LABS: Partial Thromboplastin Time 41.2 SECONDS (22.3-36.8)
[2024-01-06] MEDS: HEPARIN SOD/D5W 100 UNITS/ML 25,000 UNITS/250 ML BAG 17 UNITS IV CONT (22:11)
[2024-01-06] MEDS: SODIUM CHLORIDE 0.9% IV 500 ML 30 ML (23:55)
[2024-01-06] MEDS: metroNIDAZOLE 500 MG/ISO 100ML 500 MG/100 ML BAG 100 MG IVPB (23:55)
[2024-01-07] VITALS (9 sets, daily range): BP systolic 128–147; BP diastolic 60–71; PULSE 59–92; RESP 14–18; TEMP 36.7–36.8; O2SAT 95–98
[2024-01-07] MEDS: methylPREDNISolone SOD SUCC 40 MG VIAL IV PUSH ×4 (01:25→13:05)
[2024-01-07] MEDS: diphenhydrAMINE HCl INJ 50 MG/ML VIAL IV PUSH (01:43)
[2024-01-07] MEDS: ONDANSETRON INJ 4 MG/2 ML VIAL IV PUSH (03:27)
[2024-01-07] MEDS: HYDROmorphone HCL INJ (*CRX) 1 MG/ML SYR 0.5 MG IV PUSH ×2 (03:31→20:11)
[2024-01-07 05:45] LABS: Basophils Absolute Auto 0.1 K/mm3 (0.0-0.1); Basophils Percent Auto 0.5 % (0.2-1.2); Hemoglobin 13.2 g/dL (12.0-15.0); Immature Granulocyte Absolute 0.31 K/mm3 (0.00-0.031); Immature Granulocyte Percent A 2.5 % (0-0.5); Lymphocytes Absolute Auto 1.23 K/mm3 (0.9-3.2); Lymphocytes Percent Auto 9.8 % (18.3-44.2); Mean Corpuscular HGB Conc 32.2 g/dl (32-36); Mean Corpuscular Hemoglobin 31.1 pg (26-34); Mean Corpuscular Volume 96.7 fl (80-100); Mean Platelet Volume 9.9 fl (7.4-10.4); Monocytes Absolute Auto 0.2 K/mm3 (0.1-0.6); Monocytes Percent Auto 1.8 % (2.6-8.5); Neutrophils Absolute Auto 10.7 K/mm3 (1.3-6.7); Neutrophils Percent Auto 85.4 % (45.5-73.1); Platelet Count Result 301 k/mm3 (150-375); Red Blood Count 4.24 M/mm3 (4.2-5.4); Red Cell Distribution Width 14.7 % (11.5-14.5); White Blood Count 12.5 K/mm3 (4.5-10.0)
[2024-01-07 05:58] LABS: Alanine Aminotransferase 23 U/L (6-35); Albumin Level 3.3 g/dL (3.5-5.1); Alkaline Phosphatase 165 U/L (38-126); Anion Gap 10 mmol/L (8-16); Aspartate Amino Transferase 16 U/L (14-36); Bilirubin,Total 0.7 mg/dL (0.2-1.3); Blood Urea Nitrogen 16 mg/dL (7-17); Calcium 8.4 mg/dL (8.4-10.2); Carbon Dioxide 19 mmol/L (22-30); Chloride 104 mmol/L (98-107); Estimated CRCL calculation 102 ml/min; Estimated Glomerular Filt Rate > 60; Glucose 232 mg/dL (65-110); Magnesium 2.3 mg/dL (1.6-2.3); Potassium 4.4 mmol/L (3.4-5.0); Sodium 133 mmol/L (137-145)
[2024-01-07 06:07] LABS: Partial Thromboplastin Time 60.5 SECONDS (22.3-36.8)
[2024-01-07] MEDS: HEPARIN SOD/D5W 100 UNITS/ML 25,000 UNITS/250 ML BAG 17 UNITS IV CONT (06:08)
[2024-01-07] MEDS: metroNIDAZOLE 500 MG/ISO 100ML 500 MG/100 ML BAG 100 MG IVPB ×3 (06:10→20:14)
[2024-01-07] MEDS: LEVOTHYROXINE SODIUM 50 MCG TABLET PO (06:11)
[2024-01-07 06:29] LABS: Thyroid Stimulating Hormone Reflex 0.831 uIU/mL (0.465-4.68)
[2024-01-07] MEDS: HEPARIN SOD/D5W 100 UNITS/ML 25,000 UNITS/250 ML BAG 19 UNITS IV CONT ×2 (06:37→13:54)
[2024-01-07] MEDS: HEPARIN SODIUM 5,000 UNITS/ML VIAL 3000 UNITS IV PUSH ×2 (06:37→20:08)
[2024-01-07 07:26] LABS: Glucose Point of Care 223 mg/dl (65-105)
[2024-01-07] MEDS: INSULIN ASPART (*BKC) 100 UNITS/ML SUB-Q ×4 (09:32→21:46)
[2024-01-07 11:34] LABS: Glucose Point of Care 259 mg/dl (65-105)
[2024-01-07 13:23] LABS: Partial Thromboplastin Time 93.8 SECONDS (22.3-36.8)
--- NOTE | 2024-01-07 15:02 | PM.IMPN ---
Progress Note: A&P Assessment and Plan (1) Sigmoid diverticulitis: Code(s): K57.32 - Diverticulitis of large intestine without perforation or abscess without bleeding Status: Acute Assessment and Plan: She was diagnosed with sigmoid diverticulitis several days ago and has been taking ciprofloxacin and metronidazole as an outpatient. Continue antibiotics for diverticulitis to include ceftriaxone and metronidazole. Symptoms improved. Advance diet. Analgesics and antiemetics are available as needed. (2) Mesenteric vein thrombosis: Code(s): K55.069 - Acute infarction of intestine, part and extent unspecified Status: Acute Assessment and Plan: She was also diagnosed with mesenteric vein thrombosis however she did not have her apixaban filled for unclear reasons. Patient started on heparin drip. Lactic acid was normal and she is nontoxic in appearance. Etiology of the thrombus is not entirely clear but may be related to inflammation from diverticulitis or prior gastric sleeve. (3) Type 2 diabetes mellitus: Code(s): E11.9 - Type 2 diabetes mellitus without complications Status: Acute Assessment and Plan: Insulin Lispro sliding scale, Accu-checks qAc and HS and Hold oral hypoglycemics Initiate hypoglycemic precautions (4) Hypothyroidism (acquired): Code(s): E03.9 - Hypothyroidism, unspecified Status: Acute Assessment and Plan: Continue levothyroxine. Subjective Date/time seen: 01/07/24 15:02 Interval history: Patient denies diarrhea, nausea, vomiting or abdominal pain. Due to lack of symptoms following advance her diet. Will consult general surgery for recommendations on SMV thrombosis treatment. Patient is currently asymptomatic. Exam Narrative: GENERAL: Comfortable, no acute distress HENMT: moist mucous membranes EYES: EOM intact b/l NECK: no lymphadenopathy RESPIRATORY: clear to auscultation CARDIO: RRR GI: soft, nontender, bowel sounds present SKIN: no rashes EXTREMITIES: no edema, redness or tenderness Objective Data Vital Signs Vital Signs: Vital Signs - 24 hr 01/06/24 15:06 01/06/24 15:15 01/06/24 15:30 Temperature Pulse Rate Respiratory Rate Blood Pressure Pulse Oximetry 96 96 95 Oxygen Delivery 01/06/24 17:42 01/06/24 18:19 01/06/24 21:30 Temperature 97.1 F L 98.1 F Pulse Rate 66 63 65 Respiratory Rate 16 18 14 Blood Pressure 152/67 H 132/46 L 146/79 H Pulse Oximetry 96 96 96 Oxygen Delivery 01/06/24 20:00 01/06/24 20:00 01/07/24 00:00 Temperature Pulse Rate 67 66 Respiratory Rate Blood Pressure Pulse Oximetry Oxygen Delivery Room Air 01/07/24 04:00 01/07/24 06:00 01/07/24 08:00 Temperature 98.0 F Pulse Rate 64 59 L Respiratory Rate 14 Blood Pressure 132/60 Pulse Oximetry 95 Oxygen Delivery Room Air 01/07/24 13:54 01/07/24 08:00 01/07/24 14:13 Temperature 98.0 F Pulse Rate 65 64 67 Respiratory Rate 16 Blood Pressure 147/66 H Pulse Oximetry 98 Oxygen Delivery Intake/Output Intake/Output: Intake & Output 01/04/24 01/05/24 01/06/24 01/07/24 23:59 23:59 23:59 23:59 Intake Total 1250 2280 Balance 1250 2280 Meds/Results Medications: Active Medications Generic Name Dose Route Start Last Admin Trade Name Freq PRN Reason Stop Dose Admin Hydrocodone Bitart/Acetaminophen 1 tab 01/06/24 22:32 Hydrocodone/Acetaminophen (*Crx) 5-325 Mg Tablet PO Q8H PRN pain 4-6 Dextrose 12.5 gm 01/06/24 22:31 Dextrose 50% 25 Gm/50 Ml Syringe IV PUSH PRN PRN Hypoglycemia Protocol Diphenhydramine HCl 50 mg 01/06/24 19:46 Diphenhydramine Hcl Inj 50 Mg/Ml Vial IV PUSH Q4H PRN Itching Diphenhydramine HCl 50 mg 01/06/24 19:46 01/07/24 01:43 Diphenhydramine Hcl Inj 50 Mg/Ml Vial IV PUSH 50 mg ONCE PRN Administration Prevent Aller
[2024-01-07 16:22] LABS: Glucose Point of Care 379 mg/dl (65-105)
[2024-01-07] MEDS: HYDROcodone/acetaminophen (*CRX) 5-325 MG TABLET 1 TAB PO (16:36)
[2024-01-07 19:55] LABS: Partial Thromboplastin Time 60.2 SECONDS (22.3-36.8)
[2024-01-07] MEDS: HEPARIN SOD/D5W 100 UNITS/ML 25,000 UNITS/250 ML BAG 21 UNITS IV CONT (20:07)
[2024-01-07 22:01] LABS: Glucose Point of Care 258 mg/dl (65-105)
[2024-01-07] MEDS: HYDROcodone/acetaminophen (*CRX) 5-325 MG TABLET PO (22:06)
[2024-01-07] MEDS: LIDOCAINE 5% PATCH 1 PATCH TRANSDERM (22:56)
[2024-01-08] VITALS (10 sets, daily range): BP systolic 126–178; BP diastolic 62–86; PULSE 55–70; RESP 13–25; TEMP 36.2–36.6; O2SAT 96–100
[2024-01-08] MEDS: HYDROmorphone HCL INJ (*CRX) 1 MG/ML SYR 0.5 MG IV PUSH (00:11)
[2024-01-08] MEDS: BISACODYL 10 MG SUPPOSITORY RECTAL (01:15)
[2024-01-08] MEDS: HYDROcodone/acetaminophen (*CRX) 5-325 MG TABLET PO ×5 (02:30→22:05)
[2024-01-08] MEDS: ONDANSETRON INJ 4 MG/2 ML VIAL IV PUSH ×3 (02:34→16:24)
[2024-01-08] MEDS: HYDROmorphone HCL INJ (*CRX) 1 MG/ML SYR IV PUSH ×5 (03:07→20:04)
[2024-01-08] MEDS: LORazepam INJ (*CRX) 2 MG/ML VIAL 1 MG IV PUSH (03:11)
[2024-01-08 03:18] LABS: Hematocrit 42.9 % (37.0-47.0); Hemoglobin 13.9 g/dL (12.0-15.0); Mean Corpuscular HGB Conc 32.4 g/dl (32-36); Mean Corpuscular Hemoglobin 31.2 pg (26-34); Mean Corpuscular Volume 96.4 fl (80-100); Mean Platelet Volume 9.9 fl (7.4-10.4); Platelet Count Result 376 k/mm3 (150-375); Red Blood Count 4.45 M/mm3 (4.2-5.4); Red Cell Distribution Width 14.6 % (11.5-14.5); White Blood Count 16.7 K/mm3 (4.5-10.0)
--- NOTE | 2024-01-08 03:22 | P.PNCROSS_ITS ---
Event Note Event Note Event Note: 01/08/2024 at 02:45 Nursing staff a call the mid shift provider as the patient was complaining of intractable abdominal pain earlier in. Patient's pain is increased this evening. Pain instead of being just in her low back previously is now more in her low abdomen and was reportedly radiating down to her legs. The patient had not had a bowel movement since prior to admission. Patient's Dilaudid dose had remained the same but the mid shift provider had increased the patient's [place] from 1 tablet every 8 hours to 1-2 tablets every 4 hours. Despite increasing the patient's pain medications she was reporting the pain was intractable and unchanged. She stated the pain was severe. However the patient's abdomen was soft and abdominal exam was benign. I gave orders for a suppository to see if the patient had a bowel movement in would improved. The patient was not having any nausea or vomiting. The patient had called her family complaining of pain. The patient's called and was cursing at nursing staff. Nursing staff called me after I finished with my other patient care issue I came up to evaluate the patient. The patient's abdominal exam was benign with only mild tenderness in the left lower quadrant. The patient was continuously moaning both with palpation and with output patient is abdomen. No voluntary or involuntary guarding. Normal bowel sounds. The patient had had a bowel movement after suppository administration. Patient is afebrile vital signs are stable. I tried to reassure the patient that her exam was consistent with her history of diverticulitis. There are no peritoneal signs. Patient seems fixated on mesenteric thrombus. Although the patient has been therapeutic on her heparin drip and actually has heparin drip held due to be did PTT. But again I am not concerned about intra-abdominal hematoma given her benign exam. If the patient is having worsening symptoms then will make the patient NPO. The patient's Dilaudid has been increased to 1 mg q.3 hours. Patient's biggest complaint was that she has not slept in 10 days. I did give 1 dose of IV Ativan. Will repeat CBC and electrolyte panel. Will add lactic acid level. 30 minute spent in critical care activities. Due to a high probability of clinically significant, life threatening deterioration, the patient required my highest level of preparedness to intervene emergently and I personally spent this critical care time directly and personally managing the patient. This critical care time included obtaining a history; examining the patient; pulse oximetry; ordering and review of studies; arranging urgent treatment with development of a management plan; evaluation of patient's response to treatment; frequent reassessment; and discussions with other providers. It was exclusive of separately billable procedures and treating other patients and teaching time. Please see Assessment and Plan section and the rest of the note for further information on patient assessment and treatment.
[2024-01-08 03:31] LABS: Partial Thromboplastin Time 125.5 SECONDS (22.3-36.8)
[2024-01-08 03:36] LABS: Alanine Aminotransferase 23 U/L (6-35); Albumin Level 3.4 g/dL (3.5-5.1); Alkaline Phosphatase 165 U/L (38-126); Anion Gap 9 mmol/L (8-16); Aspartate Amino Transferase 14 U/L (14-36); Bilirubin,Total 0.6 mg/dL (0.2-1.3); Blood Urea Nitrogen 23 mg/dL (7-17); Calcium 8.6 mg/dL (8.4-10.2); Carbon Dioxide 19 mmol/L (22-30); Chloride 106 mmol/L (98-107); Estimated CRCL calculation 78 ml/min; Estimated Glomerular Filt Rate > 60; Glucose 250 mg/dL (65-110); Lactic Acid Reflex 1.4 mmol/L (0.7-2.0); Potassium 3.8 mmol/L (3.4-5.0); Sodium 134 mmol/L (137-145)
[2024-01-08] MEDS: HEPARIN SOD/D5W 100 UNITS/ML 25,000 UNITS/250 ML BAG 19 UNITS IV CONT ×2 (03:40→11:05)
[2024-01-08] MEDS: metroNIDAZOLE 500 MG/ISO 100ML 500 MG/100 ML BAG 100 MG IVPB ×3 (05:11→20:16)
[2024-01-08] MEDS: SODIUM CHLORIDE 0.9% IV 1,000 ML 100 ML IV CONT ×2 (05:11→17:12)
[2024-01-08] MEDS: LEVOTHYROXINE SODIUM 50 MCG TABLET PO (05:11)
[2024-01-08 07:59] LABS: Glucose Point of Care 218 mg/dl (65-105)
[2024-01-08] MEDS: INSULIN ASPART (*BKC) 100 UNITS/ML SUB-Q ×2 (08:25→17:13)
--- NOTE | 2024-01-08 11:50 | PM.CNGS ---
Assessment and Plan Assessment and plan (1) Sigmoid diverticulitis: Code(s): K57.32 - Diverticulitis of large intestine without perforation or abscess without bleeding Status: Acute Assessment and Plan: Patient presents with uncomplicated sigmoid diverticulitis, which is her second episode in [address] evidence of perforation or abscess. CT also showed an inferior mesenteric venous thrombosis. This is likely secondary to the sigmoid diverticulitis. Clinically, her abdominal pain has improved some today. Her exam reveals appropriate tenderness in the LLQ consistent with diverticulitis, and no peritoneal signs. We would recommend to continue broad-spectrum IV antibiotics. Will allow her to have sips of clear liquids today and she can take oral medications if needed. Continue analgesics as needed for pain control. (2) Mesenteric vein thrombosis: Code(s): K55.069 - Acute infarction of intestine, part and extent unspecified Status: Acute Assessment and Plan: This is likely secondary to the acute sigmoid diverticulitis. Agree with anticoagulation and monitoring. She is currently on a heparin infusion that will eventually be able to be converted to an oral anticoagulant once she is tolerating a diet. Discussed with the patient that she will need anticoagulation on discharge and will need medical follow-up with her primary care provider. If she is not clinically improving and there is any concern she needs more invasive measures for the mesenteric vein thrombosis, then she would require transfer to a tertiary care facility where a vascular surgeon is available. (3) Type 2 diabetes mellitus: Code(s): E11.9 - Type 2 diabetes mellitus without complications Status: Acute (4) Rheumatoid arthritis: Code(s): M06.9 - Rheumatoid arthritis, unspecified Status: Chronic (5) History of sleeve gastrectomy: Code(s): Z90.3 - Acquired absence of stomach [part of] Status: Resolved Plan I have discussed the patient's case and plan of care with Dr. Zamora. Thank you for allowing us to see the patient in consultation and we will continue to follow along with you. History of Present Illness Consult details Consult date: 01/08/24 Reason for consult: other (Recommendations for mesenteric vein thrombosis) Requesting physician: Ivett Herzog PA-C Narrative: This is a 63-year-old woman with type 2 diabetes mellitus and rheumatoid arthritis, who we have been asked to see in surgical consultation for inferior mesenteric vein thrombosis. She initially presented to the ER in [place] 5 days ago with complaints abdominal pain. She reports having left lower quadrant abdominal pain for a few days prior to presentation. She had associated nausea, dry heaving, bloating, and subjective fevers. CT scan of the abdomen and pelvis without contrast at that time showed acute sigmoid diverticulitis with mesenteric vein thrombosis/thrombophlebitis. Labs showed a white blood cell count of 15,200. The ER provider call the physician at [place] who recommended starting her on Eliquis and she was discharged with ciprofloxacin, metronidazole, and Eliquis. She reports initially feeling better and taking the antibiotics. She did not start anticoagulation. Her fever resolve the night. The following morning, she woke up and began to have radiating lower back pain. Her back pain was actually worse than her abdominal pain. Her back pain became more persistent as her abdominal pain was improving, and this brought her back into the ER 2 days ago. Labs showed her white blood cell count was at 16,100. CT scan of the abdomen and pelvis without IV contrast showed sigmoid diverticulitis, no perforation or abscess. Also seen is persistent enlargement of inferior mesenteric vein with surrounding fat stranding, likely inferior mesenteric vein thrombosis. She was admitted to the hospitalist service. She was started on a heparin infusion fo
[2024-01-08 12:10] LABS: Glucose Point of Care 194 mg/dl (65-105)
--- NOTE | 2024-01-08 13:44 | PM.IMPN ---
Progress Note: A&P Assessment and Plan (1) Sigmoid diverticulitis: Code(s): K57.32 - Diverticulitis of large intestine without perforation or abscess without bleeding Status: Acute Assessment and Plan: She was diagnosed with sigmoid diverticulitis several days ago and has been taking ciprofloxacin and metronidazole as an outpatient. Continue antibiotics for diverticulitis to include ceftriaxone and metronidazole. Symptoms improved. Advance diet. Analgesics and antiemetics are available as needed. Patient having increased pain overnight. Right Of Way Clearer increased pain medications. See cross cover note. (2) Mesenteric vein thrombosis: Code(s): K55.069 - Acute infarction of intestine, part and extent unspecified Status: Acute Assessment and Plan: She was also diagnosed with mesenteric vein thrombosis however she did not have her apixaban filled for unclear reasons. Patient started on heparin drip. Lactic acid was normal and she is nontoxic in appearance. Etiology of the thrombus is not entirely clear but may be related to inflammation from diverticulitis or prior gastric sleeve. Surgery believes thrombus is from diverticulitis. Will transition her to Eliquis from heparin. (3) Type 2 diabetes mellitus: Code(s): E11.9 - Type 2 diabetes mellitus without complications Status: Acute Assessment and Plan: Insulin Lispro sliding scale, Accu-checks qAc and HS and Hold oral hypoglycemics Initiate hypoglycemic precautions (4) Hypothyroidism (acquired): Code(s): E03.9 - Hypothyroidism, unspecified Status: Acute Assessment and Plan: Continue levothyroxine. Subjective Date/time seen: 01/08/24 13:44 Interval history: Patient was comfortably resting in bed when I arrived. She stated she discussed some pain medication a comfortably. She does lower abdominal pain times around to back. She denies any nausea vomiting. While talking with the patient and distracting her with questions I deeply palpated and she did not react in any pain. Active bowel sounds x4. Patient did have bowel movement this morning. Exam Narrative: GENERAL: Comfortable, no acute distress HENMT: moist mucous membranes EYES: EOM intact b/l NECK: no lymphadenopathy RESPIRATORY: clear to auscultation CARDIO: RRR GI: soft, nontender, bowel sounds present SKIN: no rashes EXTREMITIES: no edema, redness or tenderness Objective Data Vital Signs Vital Signs: Vital Signs - 24 hr 01/07/24 13:54 01/07/24 14:13 01/07/24 16:00 Temperature 98.0 F Pulse Rate 65 67 92 Respiratory Rate 16 Blood Pressure 147/66 H Pulse Oximetry 98 Oxygen Delivery 01/07/24 20:00 01/07/24 22:00 01/07/24 20:00 Temperature 98.2 F Pulse Rate 64 67 Respiratory Rate 18 Blood Pressure 128/71 Pulse Oximetry 98 95 Oxygen Delivery Room Air 01/08/24 00:00 01/08/24 04:00 01/08/24 02:00 Temperature 97.2 F L Pulse Rate 64 59 L 58 L Respiratory Rate 25 H Blood Pressure 178/86 H Pulse Oximetry 100 Oxygen Delivery 01/08/24 06:00 01/08/24 09:05 Temperature 97.7 F Pulse Rate 60 Respiratory Rate 18 Blood Pressure 132/75 Pulse Oximetry 98 Oxygen Delivery Room Air Intake/Output Intake/Output: Intake & Output 01/05/24 01/06/24 01/07/24 01/08/24 23:59 23:59 23:59 23:59 Intake Total 1250 2730 1100 Balance 1250 2730 1100 Meds/Results Medications: Active Medications Generic Name Dose Route Start Last Admin Trade Name Freq PRN Reason Stop Dose Admin Hydrocodone Bitart/Acetaminophen 1 - 2 tab 01/07/24 21:58 01/08/24 13:26 Hydrocodone/Acetaminophen (*Crx) 5-325 Mg Tablet PO 2 tab Q4H PRN Administration pain 4-6 Calcium Carbonate 200 mg 01/08/24 11:58 Calcium Carbonate (Tums) 500 Mg (200 Mg Elemental) PO Q6H PRN Indigestion Dextrose 12.5 gm 01/06/24 22:31 Dextrose
[2024-01-08 16:45] LABS: Partial Thromboplastin Time 58.3 SECONDS (22.3-36.8)
[2024-01-08 16:50] LABS: Glucose Point of Care 204 mg/dl (65-105)
[2024-01-08] MEDS: HEPARIN SODIUM 5,000 UNITS/ML VIAL 3000 UNITS IV PUSH (17:14)
[2024-01-08] MEDS: APIXABAN 5 MG TABLET 10 MG PO (20:00)
[2024-01-08 20:44] LABS: Glucose Point of Care 176 mg/dl (65-105)
[2024-01-08 23:53] LABS: Partial Thromboplastin Time 161.7 SECONDS (22.3-36.8)
[2024-01-09] VITALS (8 sets, daily range): BP systolic 119–137; BP diastolic 58–65; PULSE 58–79; RESP 18–20; TEMP 36–36.6; O2SAT 99–100
[2024-01-09] MEDS: HYDROmorphone HCL INJ (*CRX) 1 MG/ML SYR IV PUSH ×5 (01:52→18:40)
[2024-01-09] MEDS: HYDROcodone/acetaminophen (*CRX) 5-325 MG TABLET PO ×3 (04:14→12:02)
[2024-01-09] MEDS: SODIUM CHLORIDE 0.9% IV 1,000 ML 100 ML IV CONT ×2 (04:16→16:27)
[2024-01-09] MEDS: metroNIDAZOLE 500 MG/ISO 100ML 500 MG/100 ML BAG 100 MG IVPB ×3 (05:00→20:48)
[2024-01-09] MEDS: LEVOTHYROXINE SODIUM 50 MCG TABLET PO (05:45)
[2024-01-09 06:12] LABS: Basophils Percent Auto 0.2 % (0.2-1.2); Eosinophils Percent Auto 0.1 % (0-4.4); Hematocrit 41.6 % (37.0-47.0); Hemoglobin 13.1 g/dL (12.0-15.0); Immature Granulocyte Absolute 0.18 K/mm3 (0.00-0.031); Immature Granulocyte Percent A 1.5 % (0-0.5); Lymphocytes Absolute Auto 1.25 K/mm3 (0.9-3.2); Lymphocytes Percent Auto 10.4 % (18.3-44.2); Mean Corpuscular HGB Conc 31.5 g/dl (32-36); Mean Corpuscular Volume 98.3 fl (80-100); Mean Platelet Volume 9.7 fl (7.4-10.4); Monocytes Absolute Auto 0.7 K/mm3 (0.1-0.6); Monocytes Percent Auto 5.9 % (2.6-8.5); Neutrophils Absolute Auto 9.9 K/mm3 (1.3-6.7); Neutrophils Percent Auto 81.9 % (45.5-73.1); Platelet Count Result 292 k/mm3 (150-375); Red Blood Count 4.23 M/mm3 (4.2-5.4); Red Cell Distribution Width 14.8 % (11.5-14.5); White Blood Count 12.1 K/mm3 (4.5-10.0)
[2024-01-09 06:23] LABS: Partial Thromboplastin Time 31.5 SECONDS (22.3-36.8)
[2024-01-09 06:31] LABS: Anion Gap 2 mmol/L (8-16); Blood Urea Nitrogen 16 mg/dL (7-17); Carbon Dioxide 26 mmol/L (22-30); Chloride 107 mmol/L (98-107); Estimated CRCL calculation 90 ml/min; Estimated Glomerular Filt Rate > 60; Glucose 151 mg/dL (65-110); Potassium 4.1 mmol/L (3.4-5.0); Sodium 135 mmol/L (137-145)
[2024-01-09 08:07] LABS: Glucose Point of Care 142 mg/dl (65-105)
[2024-01-09] MEDS: APIXABAN 5 MG TABLET 10 MG PO ×2 (08:25→20:47)
[2024-01-09] MEDS: CALCIUM CARBONATE (TUMS) 500 MG (200 MG ELEMENTAL) PO ×2 (08:25→14:54)
[2024-01-09] MEDS: ONDANSETRON INJ 4 MG/2 ML VIAL IV PUSH ×2 (10:17→14:57)
[2024-01-09 11:26] LABS: Glucose Point of Care 148 mg/dl (65-105)
[2024-01-09] MEDS: polyethylene glycoL 3350 17 GM POWD.PACK PO (11:53)
[2024-01-09] MEDS: DOCUSATE SODIUM 100 MG CAPSULE PO ×2 (11:53→20:47)
--- NOTE | 2024-01-09 13:08 | WPDPN ---
Progress Note: A&P Assessment and Plan (1) Sigmoid diverticulitis: Code(s): K57.32 - Diverticulitis of large intestine without perforation or abscess without bleeding Status: Acute Assessment and Plan: Patient continues to have some lower abdominal cramping pain. White blood cell count is Trending back down to 12,000 now. No fever. Clinical abdominal exam is relatively benign her most pressing complaint is when she has the crampy lower abdominal pain. Will start her on some Bentyl for the crampy lower abdominal pain. Okay to give her some clear liquids now. Continue on IV antibiotics for now. Hopefully the next 24 to 48 hours we can advance her diet she can go home on oral antibiotics for another 7 to 10 days. It was recommended she get a colonoscopy done 4 to 6 weeks since she has never had a colonoscopy performed in the past. Her previous episode of diverticulitis which she was not hospitalized for was about 10 years ago. I think as long as the colonoscopy does not show any obvious reason to have a colon resection then continued observation with a high-fiber diet would be indicated at this time. (2) Mesenteric vein thrombosis: Code(s): K55.069 - Acute infarction of intestine, part and extent unspecified Status: Acute Assessment and Plan: Patient has no symptoms from her inferior mesenteric vein thrombosis. She has been converted from heparin drip to Eliquis. Standard therapy duration of 6 months of oral antibiotic anticoagulation would be indicated. No family history or seemingly obvious risk factors for hypercoagulable state so would just treat with Eliquis for 6 months. Subjective Date/time seen: 01/09/24 13:08 Interval history: Patient is sitting up in a chair today. Had a loose mucous bowel movement yesterday without any blood. She continues to have some admitting crampy lower abdominal pain for which she does get some clotted. Some nausea but no emesis. She has been taking some ice chips. Blood cell count is back down to 12,000 today. No fever tachycardia. She was transitioned from heparin drip to Eliquis yesterday due to her inferior mesenteric vein thrombosis. Exam GI: Other: Abdomen is soft and obese. Minimal distention. Minimal tenderness to palpation in the left lower quadrant suprapubic region. No peritoneal signs Objective Data Vital Signs Vital Signs: Vital Signs - 24 hr 01/08/24 14:00 01/08/24 16:00 01/08/24 21:14 Temperature 36.3 C L 36.6 C Pulse Rate 64 70 61 Respiratory Rate 16 13 Blood Pressure 148/76 H 126/62 Pulse Oximetry 99 96 Oxygen Delivery 01/08/24 20:00 01/08/24 20:00 01/09/24 00:00 Temperature Pulse Rate 68 61 Respiratory Rate Blood Pressure Pulse Oximetry 96 Oxygen Delivery Room Air 01/09/24 04:00 01/09/24 05:28 Temperature 36.4 C Pulse Rate 79 63 Respiratory Rate 20 Blood Pressure 137/58 L Pulse Oximetry 99 Oxygen Delivery Intake/Output Intake/Output: Intake & Output 01/06/24 01/07/24 01/08/24 01/09/24 23:59 23:59 23:59 23:59 Intake Total 1250 2730 2350 1100 Balance 1250 2730 2350 1100 Meds/Results Medications: Active Medications Generic Name Dose Route Start Last Admin Trade Name Freq PRN Reason Stop Dose Admin Hydrocodone Bitart/Acetaminophen 1 - 2 tab 01/07/24 21:58 01/09/24 12:02 Hydrocodone/Acetaminophen (*Crx) 5-325 Mg Tablet PO 2 tab Q4H PRN Administration pain 4-6 Apixaban 10 mg 01/08/24 21:00 01/09/24 08:25 Apixaban 5 Mg Tablet PO 10 mg Q12HR BOY Administration Calcium Carbonate 200 mg 01/08/24 11:58 01/09/24 08:25 Calcium Carbonate (Tums) 500 Mg (200 Mg Elemental) PO 200 mg Q6H PRN Administration Indigestion Dextrose 12.5 gm 01/06/24 22:31 Dextrose 50% 25 Gm/50 Ml Syringe IV PUSH PRN PRN Hypoglycemia Protocol Dicyclomine HCl 20 mg 01/09/24 12:59 Dicyclomine Hcl 10 Mg Capsule
[2024-01-09] MEDS: DICYCLOMINE HCL 10 MG CAPSULE 20 MG PO ×2 (14:54→20:47)
--- NOTE | 2024-01-09 15:24 | PM.IMPN ---
Progress Note: A&P Assessment and Plan (1) Sigmoid diverticulitis: Code(s): K57.32 - Diverticulitis of large intestine without perforation or abscess without bleeding Status: Acute Assessment and Plan: She was diagnosed with sigmoid diverticulitis several days ago and has been taking ciprofloxacin and metronidazole as an outpatient. Continue antibiotics for diverticulitis to include ceftriaxone and metronidazole. Symptoms improved. Advance diet. Analgesics and antiemetics are available as needed. Patient having increased pain overnight. Detective Bowling Alley increased pain medications. See cross cover note. 01/08 General surgery recommending advancement of diet. (2) Mesenteric vein thrombosis: Code(s): K55.069 - Acute infarction of intestine, part and extent unspecified Status: Acute Assessment and Plan: She was also diagnosed with mesenteric vein thrombosis however she did not have her apixaban filled for unclear reasons. Patient started on heparin drip. Lactic acid was normal and she is nontoxic in appearance. Etiology of the thrombus is not entirely clear but may be related to inflammation from diverticulitis or prior gastric sleeve. Surgery believes thrombus is from diverticulitis. Will transition her to Eliquis from heparin. (3) Type 2 diabetes mellitus: Code(s): E11.9 - Type 2 diabetes mellitus without complications Status: Acute Assessment and Plan: Insulin Lispro sliding scale, Accu-checks qAc and HS and Hold oral hypoglycemics Initiate hypoglycemic precautions (4) Hypothyroidism (acquired): Code(s): E03.9 - Hypothyroidism, unspecified Status: Acute Assessment and Plan: Continue levothyroxine. Subjective Date/time seen: 01/09/24 15:24 Interval history: Patient continued to have some abdominal discomfort that is extending into her back. Will continue IV antibiotics for now and advance patient to a clear liquid diet per General surgery recommendations. Denies any nausea vomiting. Patient has not had bowel movement in a couple days. Will add docusate and MiraLax on her medication list. Exam Narrative: GENERAL: Comfortable, no acute distress HENMT: moist mucous membranes EYES: EOM intact b/l NECK: no lymphadenopathy RESPIRATORY: clear to auscultation CARDIO: RRR GI: soft, nontender, bowel sounds present SKIN: no rashes EXTREMITIES: no edema, redness or tenderness Objective Data Vital Signs Vital Signs: Vital Signs - 24 hr 01/08/24 16:00 01/08/24 21:14 01/08/24 20:00 Temperature 97.8 F Pulse Rate 70 61 Respiratory Rate 13 Blood Pressure 126/62 Pulse Oximetry 96 96 Oxygen Delivery Room Air 01/08/24 20:00 01/09/24 00:00 01/09/24 04:00 Temperature Pulse Rate 68 61 79 Respiratory Rate Blood Pressure Pulse Oximetry Oxygen Delivery 01/09/24 05:28 01/09/24 08:30 01/09/24 13:36 Temperature 97.6 F 96.8 F L Pulse Rate 63 58 L Respiratory Rate 20 20 Blood Pressure 137/58 L 119/65 Pulse Oximetry 99 100 Oxygen Delivery Room Air Intake/Output Intake/Output: Intake & Output 01/06/24 01/07/24 01/08/24 01/09/24 23:59 23:59 23:59 23:59 Intake Total 1250 2730 2350 1100 Balance 1250 2730 2350 1100 Meds/Results Medications: Active Medications Generic Name Dose Route Start Last Admin Trade Name Freq PRN Reason Stop Dose Admin Hydrocodone Bitart/Acetaminophen 1 - 2 tab 01/07/24 21:58 01/09/24 12:02 Hydrocodone/Acetaminophen (*Crx) 5-325 Mg Tablet PO 2 tab Q4H PRN Administration pain 4-6 Apixaban 10 mg 01/08/24 21:00 01/09/24 08:25 Apixaban 5 Mg Tablet PO 10 mg Q12HR BOY Administration Calcium Carbonate 200 mg 01/08/24 11:58 01/09/24 14:54 Calcium Carbonate (Tums) 500 Mg (200 Mg Elemental) PO 200 mg Q6H PRN Administration Indigestion Dextrose 12.5 gm 01/06/24 22:31 Dextrose
[2024-01-09 16:24] LABS: Glucose Point of Care 129 mg/dl (65-105)
[2024-01-09] MEDS: oxyCODONE HCL (*CRX) 5 MG TAB IR PO ×2 (16:27→20:47)
[2024-01-09 20:36] LABS: Glucose Point of Care 170 mg/dl (65-105)
[2024-01-10] VITALS (11 sets, daily range): BP systolic 138–147; BP diastolic 63–66; PULSE 53–69; RESP 16–20; TEMP 36.3–36.8; O2SAT 97–99
[2024-01-10] MEDS: HYDROmorphone HCL INJ (*CRX) 1 MG/ML SYR IV PUSH ×3 (00:11→13:22)
[2024-01-10] MEDS: metroNIDAZOLE 500 MG/ISO 100ML 500 MG/100 ML BAG 100 MG IVPB ×2 (05:00→13:23)
[2024-01-10] MEDS: LEVOTHYROXINE SODIUM 50 MCG TABLET PO (05:01)
[2024-01-10] MEDS: SODIUM CHLORIDE 0.9% IV 1,000 ML 100 ML IV CONT ×2 (05:01→21:09)
[2024-01-10] MEDS: oxyCODONE HCL (*CRX) 5 MG TAB IR PO ×2 (05:01→11:09)
[2024-01-10 06:24] LABS: Hematocrit 40.2 % (37.0-47.0); Hemoglobin 12.7 g/dL (12.0-15.0); Mean Corpuscular HGB Conc 31.6 g/dl (32-36); Mean Platelet Volume 9.4 fl (7.4-10.4); Platelet Count Result 300 k/mm3 (150-375); Red Cell Distribution Width 14.6 % (11.5-14.5); White Blood Count 11.4 K/mm3 (4.5-10.0)
[2024-01-10 06:41] LABS: Anion Gap 4 mmol/L (8-16); Blood Urea Nitrogen 11 mg/dL (7-17); Carbon Dioxide 25 mmol/L (22-30); Chloride 105 mmol/L (98-107); Estimated CRCL calculation 90 ml/min; Estimated Glomerular Filt Rate > 60; Glucose 138 mg/dL (65-110); Potassium 3.9 mmol/L (3.4-5.0); Sodium 134 mmol/L (137-145)
[2024-01-10 08:24] LABS: Glucose Point of Care 117 mg/dl (65-105)
[2024-01-10] MEDS: APIXABAN 5 MG TABLET 10 MG PO (08:36)
[2024-01-10] MEDS: ONDANSETRON INJ 4 MG/2 ML VIAL IV PUSH ×2 (08:36→13:23)
[2024-01-10] MEDS: CALCIUM CARBONATE (TUMS) 500 MG (200 MG ELEMENTAL) PO (08:36)
[2024-01-10] MEDS: LIDOCAINE 5% PATCH 1 PATCH TRANSDERM (08:37)
[2024-01-10] MEDS: DICYCLOMINE HCL 10 MG CAPSULE 20 MG PO ×2 (08:37→13:23)
[2024-01-10 13:00] LABS: Glucose Point of Care 132 mg/dl (65-105)
--- NOTE | 2024-01-10 13:25 | PM.IMPN ---
Progress Note: A&P Assessment and Plan (1) Sigmoid diverticulitis: Code(s): K57.32 - Diverticulitis of large intestine without perforation or abscess without bleeding Status: Acute Assessment and Plan: She was diagnosed with sigmoid diverticulitis several days ago and has been taking ciprofloxacin and metronidazole as an outpatient. Continue antibiotics for diverticulitis to include ceftriaxone and metronidazole. Symptoms improved. Advance diet. Analgesics and antiemetics are available as needed. Patient having increased pain overnight. Wool Grower increased pain medications. See cross cover note. 01/08 General surgery recommending advancement of diet. (2) Mesenteric vein thrombosis: Code(s): K55.069 - Acute infarction of intestine, part and extent unspecified Status: Acute Assessment and Plan: She was also diagnosed with mesenteric vein thrombosis however she did not have her apixaban filled for unclear reasons. Patient started on heparin drip. Lactic acid was normal and she is nontoxic in appearance. Etiology of the thrombus is not entirely clear but may be related to inflammation from diverticulitis or prior gastric sleeve. Surgery believes thrombus is from diverticulitis. Will transition her to Eliquis from heparin. (3) Type 2 diabetes mellitus: Code(s): E11.9 - Type 2 diabetes mellitus without complications Status: Acute Assessment and Plan: Insulin Lispro sliding scale, Accu-checks qAc and HS and Hold oral hypoglycemics Initiate hypoglycemic precautions (4) Hypothyroidism (acquired): Code(s): E03.9 - Hypothyroidism, unspecified Status: Acute Assessment and Plan: Continue levothyroxine. Subjective Date/time seen: 01/10/24 13:25 Interval history: Patient continues to have abdominal pain. It sounds like patient is experiencing constipation. Will increase her MiraLAX dosing. Patient does not have any abdominal pain associated with food. Discontinued her IV fluids due to her doing well on a liquid diet. Exam Narrative: GENERAL: Comfortable, no acute distress HENMT: moist mucous membranes EYES: EOM intact b/l NECK: no lymphadenopathy RESPIRATORY: clear to auscultation CARDIO: RRR GI: soft, nontender, bowel sounds present SKIN: no rashes EXTREMITIES: no edema, redness or tenderness Objective Data Vital Signs Vital Signs: Vital Signs - 24 hr 01/09/24 13:36 01/09/24 16:00 01/09/24 20:00 Temperature 96.8 F L Pulse Rate 58 L 59 L Respiratory Rate 20 Blood Pressure 119/65 Pulse Oximetry 100 100 Oxygen Delivery Room Air 01/09/24 20:54 01/09/24 20:00 01/10/24 00:00 Temperature 97.9 F Pulse Rate 62 58 L 68 Respiratory Rate 18 Blood Pressure 130/64 Pulse Oximetry 99 Oxygen Delivery 01/10/24 04:00 01/10/24 04:57 01/10/24 08:30 Temperature 98.1 F Pulse Rate 62 69 Respiratory Rate 20 Blood Pressure 143/66 H Pulse Oximetry 99 Oxygen Delivery Room Air Intake/Output Intake/Output: Intake & Output 01/07/24 01/08/24 01/09/24 01/10/24 23:59 23:59 23:59 23:59 Intake Total 2730 2350 2610 1818 Balance 2730 2350 2610 1818 Meds/Results Medications: Active Medications Generic Name Dose Route Start Last Admin Trade Name Freq PRN Reason Stop Dose Admin Hydrocodone Bitart/Acetaminophen 1 - 2 tab 01/07/24 21:58 01/09/24 12:02 Hydrocodone/Acetaminophen (*Crx) 5-325 Mg Tablet PO 2 tab Q4H PRN Administration pain 4-6 Apixaban 10 mg 01/08/24 21:00 01/10/24 08:36 Apixaban 5 Mg Tablet PO 10 mg Q12HR BOY Administration Calcium Carbonate 200 mg 01/08/24 11:58 01/10/24 08:36 Calcium Carbonate (Tums) 500 Mg (200 Mg Elemental) PO 200 mg Q6H PRN Administration Indigestion Dextrose 12.5 gm 01/06/24 22:31 Dextrose 50% 25 Gm/50 Ml Syringe IV PUSH PRN PRN Hypoglycemia Prot
--- NOTE | 2024-01-10 14:37 | PM.PNGS ---
Progress Note: A&P Assessment and Plan (1) Sigmoid diverticulitis: Code(s): K57.32 - Diverticulitis of large intestine without perforation or abscess without bleeding Status: Acute Assessment and Plan: pain seems worse today compared to yesterday. Exam shows bilateral lower quadrant tenderness left greater than right. Bowel sounds are absent. Her white blood cell count seems to continue to improve as it is down to 10,700 today. Will get stat CT scan abdomen and pelvis without contrast - patient has allergy to iodine needed contrast media. Will also change her antibiotics to Zosyn. Patient reports she has a very remote history of hives with penicillin but has taken penicillin since then without problems. Will additionally order gentamicin to increase gram-negative coverage. Continue clear liquids as tolerated. Change to MIDDLEWARE ARCHITECT for better pain control. Also will get scheduled ibuprofen for 24-48 hours only. Recheck labs and exam again tomorrow. Explained to patient and her that if pain does not resolve with maximal medical therapy, laparotomy and sigmoidectomy probably with colostomy may be necessary. (2) Mesenteric vein thrombosis: Code(s): K55.069 - Acute infarction of intestine, part and extent unspecified Status: Acute Assessment and Plan: Will hold Eliquis and start therapeutic dose of Lovenox in case surgery is needed. (3) Type 2 diabetes mellitus: Qualifiers: Diabetes mellitus alf insulin use: without terminal system operator use Diabetes mellitus complication status: without complication Qualified Code(s): E11.9 - Type 2 diabetes mellitus without complications Code(s): E11.9 - Type 2 diabetes mellitus without complications Status: Chronic (4) Rheumatoid arthritis: Qualifiers: Rheumatoid arthritis location: unspecified site Rheumatoid factor presence: unspecified presence Qualified Code(s): M06.9 - Rheumatoid arthritis, unspecified Code(s): M06.9 - Rheumatoid arthritis, unspecified Status: Chronic (5) History of sleeve gastrectomy: Code(s): Z90.3 - Acquired absence of stomach [part of] Status: Resolved Assessment and Plan: Worked temporarily but patient gained nearly all of her weight back. Subjective Subjective Date/Time Seen: 01/10/24 14:37 Patient reports: still having pain (Pain is worse than yesterday), tolerating liquids well, no bowel movement and afebrile Interval history: upset today as she feels she is not getting any better and also feels that night nursing is chiding her regarding her need for pain medicine Review of Systems Review of Systems: All systems reviewed & are unremarkable except as noted in HPI and below ( HPI and those items noted below) Constitutional: Constitutional: Reports as per HPI, Denies chills and Denies fever(s) Cardiovascular: Cardiovascular: Denies chest pain, Denies diaphoresis, Denies dyspnea and Denies paroxysmal nocturnal dyspnea Respiratory: Respiratory: Denies chest congestion, Denies cough and Denies dyspnea Integumentary/Breasts: Skin/Breast: Denies lesions and Denies rash Exam Const: General: cooperative, no acute distress, tired appearing, uncomfortable and obese Orientation/consciousness: patient oriented x3 GI: Inspection: no abdominal wall ecchymosis, non-distended, obesity and no visible herniation GI Palp: Yes Soft to palpation, Yes Tenderness to palpation present (GI) ( both lower quadrants, left worse than right), No Guarding due to palpation present (GI), No Hepatomegaly present, No Splenomegaly present, No Palpable mass present and No Rebound tenderness present Auscultation: normal bowel sounds Neuro: General: patient oriented x3 and no focal motor deficits Extrem: General: no calf tenderness and no edema Psych: Affect: normal affect Insight: Good insight present (Psych) Judgement: Good judgement present (Psych) Objective Data Vital Signs V
[2024-01-10 16:13] LABS: Estimated CRCL calculation 90 ml/min; Estimated Glomerular Filt Rate > 60
[2024-01-10] MEDS: HYDROmorphon 0.2MG/ML PCA(*CRX 6 MG/30 ML PCA.VIAL 1.5 MG IV CONT (16:53)
[2024-01-10] MEDS: methylPREDNISolone SOD SUCC 40 MG VIAL IV PUSH (17:03)
[2024-01-10] MEDS: polyethylene glycoL 3350 17 GM POWD.PACK PO (17:05)
[2024-01-10] MEDS: PIPERACILLN/TAZ 3.375GM/NS50ML 3.375 GM/50 ML BAG IVPB ×2 (17:06→21:11)
[2024-01-10] MEDS: GENTAMICIN SULFATE INJ 405 MG in DEXTROSE 5% 100 ML 100 MG IVPB (17:06)
[2024-01-10] MEDS: IBUPROFEN IV 800 MG/200 ML 800 MG/200 ML BAG 400 MG IVPB (17:07)
[2024-01-10 17:38] LABS: Glucose Point of Care 141 mg/dl (65-105)
[2024-01-10] MEDS: diphenhydrAMINE HCl INJ 50 MG/ML VIAL IV PUSH (20:04)
[2024-01-10 20:45] LABS: Glucose Point of Care 177 mg/dl (65-105)
[2024-01-11] VITALS (17 sets, daily range): BP systolic 125–143; BP diastolic 60–69; PULSE 53–63; RESP 13–18; TEMP 36.4–36.6; O2SAT 95–100
[2024-01-11 03:22] LABS: Hematocrit 39.8 % (37.0-47.0); Hemoglobin 12.6 g/dL (12.0-15.0); Mean Corpuscular HGB Conc 31.7 g/dl (32-36); Mean Corpuscular Hemoglobin 30.9 pg (26-34); Mean Corpuscular Volume 97.5 fl (80-100); Mean Platelet Volume 9.6 fl (7.4-10.4); Platelet Count Result 310 k/mm3 (150-375); Red Blood Count 4.08 M/mm3 (4.2-5.4); Red Cell Distribution Width 14.6 % (11.5-14.5); White Blood Count 9.6 K/mm3 (4.5-10.0)
[2024-01-11 03:32] LABS: Anion Gap 6 mmol/L (8-16); Blood Urea Nitrogen 13 mg/dL (7-17); Calcium 8.1 mg/dL (8.4-10.2); Carbon Dioxide 25 mmol/L (22-30); Chloride 104 mmol/L (98-107); Estimated CRCL calculation 104 ml/min; Estimated Glomerular Filt Rate > 60; Glucose 168 mg/dL (65-110); Potassium 4.5 mmol/L (3.4-5.0); Sodium 135 mmol/L (137-145)
[2024-01-11] MEDS: HYDROmorphon 0.2MG/ML PCA(*CRX 6 MG/30 ML PCA.VIAL 1.5 MG IV CONT ×3 (03:42→23:32)
[2024-01-11 03:51] LABS: Gentamicin Random 2.3 ug/mL (5.0-12.0)
[2024-01-11] MEDS: PIPERACILLN/TAZ 3.375GM/NS50ML 3.375 GM/50 ML BAG IVPB ×4 (03:51→20:29)
[2024-01-11] MEDS: IBUPROFEN IV 800 MG/200 ML 800 MG/200 ML BAG 400 MG IVPB (05:48)
[2024-01-11] MEDS: LEVOTHYROXINE SODIUM 50 MCG TABLET PO (05:49)
[2024-01-11 07:48] LABS: Glucose Point of Care 124 mg/dl (65-105)
[2024-01-11] MEDS: ENOXAPARIN 120 MG/0.8 ML SYRINGE SUB-Q ×2 (09:30→20:28)
[2024-01-11 11:17] LABS: Glucose Point of Care 126 mg/dl (65-105)
--- NOTE | 2024-01-11 14:08 | PM.IMPN ---
Progress Note: A&P Assessment and Plan (1) Sigmoid diverticulitis: Code(s): K57.32 - Diverticulitis of large intestine without perforation or abscess without bleeding Status: Acute Assessment and Plan: She was diagnosed with sigmoid diverticulitis several days ago and has been taking ciprofloxacin and metronidazole as an outpatient. Continue antibiotics for diverticulitis to include ceftriaxone and metronidazole. Symptoms improved. Advance diet. Analgesics and antiemetics are available as needed. Patient having increased pain overnight. Lockstitch Cup Setter increased pain medications. See cross cover note. 01/08 General surgery recommending advancement of diet. 01/09 General surgery put patient on SWING TYPE LATHE OPERATOR for better pain control. Repeat CT abdomen and pelvis showing septic thrombophlebitis of the inferior mesenteric vein and branches that drain that region of the sigmoid. Early multifocal abscess formation within the sigmoid mesentery is suspected. General surgery added gentamicin on due to the synergistic affect with penicillins on enterococci coverage. (2) Mesenteric vein thrombosis: Code(s): K55.069 - Acute infarction of intestine, part and extent unspecified Status: Acute Assessment and Plan: She was also diagnosed with mesenteric vein thrombosis however she did not have her apixaban filled for unclear reasons. Patient started on heparin drip. Lactic acid was normal and she is nontoxic in appearance. Etiology of the thrombus is not entirely clear but may be related to inflammation from diverticulitis or prior gastric sleeve. Surgery believes thrombus is from diverticulitis. Will transition her to Eliquis from heparin. (3) Type 2 diabetes mellitus: Qualifiers: Diabetes mellitus care home insulin use: without care home use Diabetes mellitus complication status: without complication Qualified Code(s): E11.9 - Type 2 diabetes mellitus without complications Code(s): E11.9 - Type 2 diabetes mellitus without complications Status: Chronic Assessment and Plan: Insulin Lispro sliding scale, Accu-checks qAc and HS and Hold oral hypoglycemics Initiate hypoglycemic precautions (4) Hypothyroidism (acquired): Code(s): E03.9 - Hypothyroidism, unspecified Status: Acute Assessment and Plan: Continue levothyroxine. Subjective Date/time seen: 01/11/24 14:08 Interval history: Patient feeling much better today. She is mostly pain-free after being put on SWING TYPE LATHE OPERATOR. Patient has not had bowel movement in a couple days. Will hold off on laxatives at this time until she is feeling better. Repeat CT scan did show some thrombophlebitis and gentamicin was added on to her antibiotic regimen. Encourage patient to hydrate and stay mobile as far as walking in the halls. Her vital signs have remained stable. White blood cell count within normal range. Exam Narrative: GENERAL: Comfortable, no acute distress HENMT: moist mucous membranes EYES: EOM intact b/l NECK: no lymphadenopathy RESPIRATORY: clear to auscultation CARDIO: RRR GI: soft, nontender, bowel sounds present SKIN: no rashes EXTREMITIES: no edema, redness or tenderness Objective Data Vital Signs Vital Signs: Vital Signs - 24 hr 01/10/24 14:50 01/10/24 16:53 01/10/24 20:00 Temperature 98.2 F Pulse Rate 57 L 57 L Respiratory Rate 16 16 Blood Pressure 147/65 H Pulse Oximetry 99 99 99 Oxygen Delivery Room Air 01/10/24 20:00 01/10/24 20:00 01/11/24 00:00 Temperature 97.3 F L Pulse Rate 62 57 L 57 L Respiratory Rate 16 Blood Pressure 138/63 Pulse Oximetry 97 Oxygen Delivery 01/11/24 03:42 01/11/24 04:00 01/11/24 04:40 Temperature 97.6 F Pulse Rate 53 L 55 L Respiratory Rate 16 Blood Pressure 125/60 Pulse Oximetry 98 96 Oxygen Delivery 01/11/24 09:30 01/11/24 13:52 Temperature 97.7 F Pulse Rate 63 R
[2024-01-11] MEDS: SODIUM CHLORIDE 0.9% IV 1,000 ML 100 ML IV CONT (14:26)
--- NOTE | 2024-01-11 14:46 | PM.PNGS ---
Progress Note: A&P Assessment and Plan (1) Septic thrombophlebitis: Code(s): I80.9 - Phlebitis and thrombophlebitis of unspecified site Status: Acute Assessment and Plan: Noted on CT scan with contrast done last night. Previous CTs have not shown this. Septic thrombophlebitis of mesenteric and sigmoid veins is harder to treat and more likely to result in surgery. It is a very unusual complication of diverticulitis. I think it explains why she was having so much pain even though her exam and facial expression were pretty normal. This ailment is known to have pain out of proportion to the clinical findings. Pain control greatly improved with ENROBER. Will keep ENROBER at same dose today but probably can be reduced tomorrow. Advanced her diet to full liquids. Increase ambulation. Doing much better. Continue Zosyn and gentamicin. (2) Sigmoid diverticulitis: Code(s): K57.32 - Diverticulitis of large intestine without perforation or abscess without bleeding Status: Acute Assessment and Plan: No abscess seen but is complicated by mesenteric septic thrombophlebitis per CT scan yesterday. (3) History of sleeve gastrectomy: Code(s): Z90.3 - Acquired absence of stomach [part of] Status: Resolved Assessment and Plan: Will discontinue IV ibuprofen as patient's pain control is much better. (4) Rheumatoid arthritis: Qualifiers: Rheumatoid arthritis location: unspecified site Rheumatoid factor presence: unspecified presence Qualified Code(s): M06.9 - Rheumatoid arthritis, unspecified Code(s): M06.9 - Rheumatoid arthritis, unspecified Status: Chronic (5) Mesenteric vein thrombosis: Code(s): K55.069 - Acute infarction of intestine, part and extent unspecified Status: Acute Assessment and Plan: Now progressed to septic thrombophlebitis as noted above. Continue anticoagulation. (6) Type 2 diabetes mellitus: Qualifiers: Diabetes mellitus prison insulin use: without prison use Diabetes mellitus complication status: without complication Qualified Code(s): E11.9 - Type 2 diabetes mellitus without complications Code(s): E11.9 - Type 2 diabetes mellitus without complications Status: Chronic Subjective Subjective Date/Time Seen: 01/11/24 14:46 Patient reports: feels better, pain is less, tolerating liquids well, no bowel movement and afebrile Interval history: Feels much better today. ENROBER really help with pain control. She has already been up to the bathroom and washed. She tells me she wants to go for a walk at least once today. She slept well last night. Still no bowel movement but tolerating liquids better. No new complaints. Review of Systems Review of Systems: All systems reviewed & are unremarkable except as noted in HPI and below (HPI) Exam Const: General: cooperative, healthy appearing, comfortable, alert, awake and well groomed Orientation/consciousness: patient oriented x3 and No confusion GI: Inspection: non-distended, obesity and no visible herniation GI Palp: Yes Soft to palpation and Yes Tenderness to palpation present (GI) (Minimal) Auscultation: normal bowel sounds Psych: Speech and movement: Normal speech and movement present Affect: normal affect Attitude: cooperative Thought process: Normal thought process present Thought content: Yes Normal thought content present Insight: Good insight present (Psych) Judgement: Good judgement present (Psych) Objective Data Vital Signs Vital Signs: Vital Signs - 24 hr 01/10/24 14:50 01/10/24 16:53 01/10/24 20:00 Temperature 36.8 C Pulse Rate 57 L 57 L Respiratory Rate 16 16 Blood Pressure 147/65 H Pulse Oximetry 99 99 99 Oxygen Delivery Room Air 01/10/24 20:00 01/10/24 20:00 01/11/24 00:00 Temperature 36.3 C L Pulse Rate 62 57 L 57 L Respiratory Rate 16 Blood Pressure 138/63 Pulse Oximetry 97 Oxygen Delivery
[2024-01-11] MEDS: GENTAMICIN SULFATE INJ 405 MG in DEXTROSE 5% 100 ML 100 MG IVPB (16:15)
[2024-01-11 16:48] LABS: Glucose Point of Care 128 mg/dl (65-105)
[2024-01-11] MEDS: CALCIUM CARBONATE (TUMS) 500 MG (200 MG ELEMENTAL) PO (20:27)
[2024-01-11 20:49] LABS: Glucose Point of Care 179 mg/dl (65-105)
[2024-01-12] VITALS (13 sets, daily range): BP systolic 121–150; BP diastolic 50–58; PULSE 56–68; RESP 14–20; TEMP 36.2; O2SAT 94–100
--- NOTE | 2024-01-12 00:02 | PC.NURSE ---
Pt QUALITY ASSURANCE ENGINEER syringe empty and changed with charge Raciel PEPE. Syringe completely empty but showing should have 19.2mL left. appears previous shift cleared but did not chart they cleared it.
[2024-01-12] MEDS: PIPERACILLN/TAZ 3.375GM/NS50ML 3.375 GM/50 ML BAG IVPB ×4 (02:09→21:00)
[2024-01-12] MEDS: SODIUM CHLORIDE 0.9% IV 1,000 ML 100 ML IV CONT (02:15)
[2024-01-12] MEDS: LEVOTHYROXINE SODIUM 50 MCG TABLET PO (06:33)
[2024-01-12 06:51] LABS: Hematocrit 39.8 % (37.0-47.0); Hemoglobin 12.4 g/dL (12.0-15.0); Mean Corpuscular HGB Conc 31.2 g/dl (32-36); Mean Corpuscular Hemoglobin 31.1 pg (26-34); Mean Corpuscular Volume 99.7 fl (80-100); Mean Platelet Volume 9.8 fl (7.4-10.4); Platelet Count Result 302 k/mm3 (150-375); Red Blood Count 3.99 M/mm3 (4.2-5.4); Red Cell Distribution Width 14.7 % (11.5-14.5); White Blood Count 10.8 K/mm3 (4.5-10.0)
[2024-01-12] MEDS: HYDROmorphon 0.2MG/ML PCA(*CRX 6 MG/30 ML PCA.VIAL 1.5 MG IV CONT (06:55)
[2024-01-12 06:59] LABS: Alanine Aminotransferase 14 U/L (6-35); Albumin Level 2.8 g/dL (3.5-5.1); Alkaline Phosphatase 94 U/L (38-126); Anion Gap 2 mmol/L (8-16); Aspartate Amino Transferase 12 U/L (14-36); Bilirubin,Total 0.6 mg/dL (0.2-1.3); Blood Urea Nitrogen 11 mg/dL (7-17); Calcium 7.8 mg/dL (8.4-10.2); Carbon Dioxide 29 mmol/L (22-30); Chloride 104 mmol/L (98-107); Estimated CRCL calculation 80 ml/min; Estimated Glomerular Filt Rate > 60; Glucose 117 mg/dL (65-110); Potassium 3.8 mmol/L (3.4-5.0); Sodium 135 mmol/L (137-145)
[2024-01-12] MEDS: ONDANSETRON INJ 4 MG/2 ML VIAL IV PUSH ×2 (07:01→21:54)
[2024-01-12 07:50] LABS: Glucose Point of Care 117 mg/dl (65-105)
[2024-01-12] MEDS: ENOXAPARIN 120 MG/0.8 ML SYRINGE SUB-Q ×2 (09:35→21:53)
--- NOTE | 2024-01-12 09:54 | WPDPN ---
Progress Note: A&P Assessment and Plan (1) Septic thrombophlebitis: Code(s): I80.9 - Phlebitis and thrombophlebitis of unspecified site Status: Acute Assessment and Plan: CT shows probable septic thrombophlebitis of inferior mesenteric vein. This is most likely due to the adjacent sigmoid diverticulitis. She is on therapeutic doses of Lovenox for now. Can convert to oral Eliquis again once the confidence she is not going to need an urgent surgery. Continue IV antibiotics for now. Eventually if nonoperative management is successful she will need a longer course of outpatient oral antibiotics. (2) Sigmoid diverticulitis: Code(s): K57.32 - Diverticulitis of large intestine without perforation or abscess without bleeding Status: Acute Assessment and Plan: Seems to be improving. Function has not returned yet. She is tolerating full liquids. We will go ahead and keep her on clear liquids today. Continue IV antibiotics. Will stop the continuous dosing of Dilaudid on her MEDICAL PRACTITIONERS. She will remain with the demand dosing every 10minutes. Continue serial abdominal exams and close observation. Subjective Date/time seen: 01/12/24 09:54 Interval history: Patient feels okay today pure tolerate some yogurt and water for breakfast. So far no worsening pain. Still has not had a bowel movement or any flatus for couple days. White blood cell count is down to 10,800. No fever. She is getting much better pain control with a Dilaudid MEDICAL PRACTITIONERS. Overall her abdominal pain is better. Exam GI: Other: Abdomen is soft and nondistended. Mild tenderness to deep palpation in the suprapubic region. No generalized peritonitis. No guarding. Objective Data Vital Signs Vital Signs: Vital Signs - 24 hr 01/11/24 13:52 01/11/24 14:27 01/11/24 14:27 Temperature 36.5 C Pulse Rate 63 Respiratory Rate 18 Blood Pressure 127/60 Pulse Oximetry 98 99 99 Oxygen Delivery 01/11/24 17:26 01/11/24 12:00 01/11/24 16:00 Temperature Pulse Rate 61 61 62 Respiratory Rate 14 Blood Pressure Pulse Oximetry 100 Oxygen Delivery Room Air 01/11/24 10:53 01/11/24 12:53 01/11/24 15:53 Temperature Pulse Rate Respiratory Rate Blood Pressure Pulse Oximetry 98 99 98 Oxygen Delivery 01/11/24 19:53 01/11/24 20:00 01/11/24 20:00 Temperature 36.6 C Pulse Rate 61 57 L Respiratory Rate 13 18 Blood Pressure 143/69 H Pulse Oximetry 99 97 Oxygen Delivery 01/11/24 23:32 01/11/24 23:32 01/12/24 00:00 Temperature Pulse Rate 57 L Respiratory Rate 14 14 Blood Pressure Pulse Oximetry 95 95 Oxygen Delivery 01/11/24 21:10 01/12/24 04:00 01/12/24 04:41 Temperature 36.2 C L Pulse Rate 59 L 56 L 60 Respiratory Rate 14 Blood Pressure 121/52 L Pulse Oximetry 96 100 Oxygen Delivery Room Air 01/12/24 06:55 01/12/24 06:55 01/12/24 08:17 Temperature Pulse Rate Respiratory Rate 16 16 16 Blood Pressure Pulse Oximetry 100 100 98 Oxygen Delivery Room Air 01/12/24 08:00 01/12/24 08:00 Temperature Pulse Rate 60 Respiratory Rate Blood Pressure Pulse Oximetry 94 Oxygen Delivery Room Air Intake/Output Intake/Output: Intake & Output 01/09/24 01/10/24 01/11/24 01/12/24 23:59 23:59 23:59 23:59 Intake Total 2610 3428.125 2211.425 2170 Balance 2610 3428.125 2211.425 2170 Meds/Results Medications: Active Medications Generic Name Dose Route Start Last Admin Trade Name Freq PRN Reason Stop Dose Admin Calcium Carbonate 200 mg 01/08/24 11:58 01/11/24 20:27 Calcium Carbonate (Tums) 500 Mg (200 Mg Elemental) PO 200 mg Q6H PRN Administration Indigestion Dextrose 12.5 gm 01/06/24 22:31 Dextrose 50% 25 Gm/50 Ml Syringe IV PUSH PRN PRN Hypoglycemia Protocol Diphenhydramine HCl 50 mg 01/06/24 19:46 Diphenhydramine Hcl Inj 50 Mg/Ml Vial IV PUSH Q4H PRN Itching Latoya
[2024-01-12 11:48] LABS: Glucose Point of Care 111 mg/dl (65-105)
--- NOTE | 2024-01-12 13:09 | PM.IMPN ---
Progress Note: A&P Assessment and Plan (1) Sigmoid diverticulitis: Code(s): K57.32 - Diverticulitis of large intestine without perforation or abscess without bleeding Status: Acute Assessment and Plan: She was diagnosed with sigmoid diverticulitis several days ago and has been taking ciprofloxacin and metronidazole as an outpatient. Continue antibiotics for diverticulitis to include ceftriaxone and metronidazole. Symptoms improved. Advance diet. Analgesics and antiemetics are available as needed. Patient having increased pain overnight. Speech Pathology Supervisor increased pain medications. See cross cover note. 01/09 General surgery put patient on RELIGION INSTRUCTOR for better pain control. Repeat CT abdomen and pelvis showing septic thrombophlebitis of the inferior mesenteric vein and branches that drain that region of the sigmoid. Early multifocal abscess formation within the sigmoid mesentery is suspected. General surgery changed antibiotics to Zosyn and gentamicin. Gentamicin added on due to the synergistic affect with penicillins on enterococci coverage. 01/11 Continue abx therapy. RELIGION INSTRUCTOR dosing decreased per general surgery. Continue clear liquids. (2) Mesenteric vein thrombosis: Code(s): K55.069 - Acute infarction of intestine, part and extent unspecified Status: Acute Assessment and Plan: She was also diagnosed with mesenteric vein thrombosis however she did not have her apixaban filled for unclear reasons. Patient started on heparin drip. Lactic acid was normal and she is nontoxic in appearance. Etiology of the thrombus is not entirely clear but may be related to inflammation from diverticulitis or prior gastric sleeve. Surgery believes thrombus is from diverticulitis. Will transition her to Eliquis from heparin. (3) Type 2 diabetes mellitus: Qualifiers: Diabetes mellitus terminologist insulin use: without terminologist use Diabetes mellitus complication status: without complication Qualified Code(s): E11.9 - Type 2 diabetes mellitus without complications Code(s): E11.9 - Type 2 diabetes mellitus without complications Status: Chronic Assessment and Plan: Insulin Lispro sliding scale, Accu-checks qAc and HS and Hold oral hypoglycemics Initiate hypoglycemic precautions (4) Hypothyroidism (acquired): Code(s): E03.9 - Hypothyroidism, unspecified Status: Acute Assessment and Plan: Continue levothyroxine. Subjective Date/time seen: 01/12/24 13:09 Interval history: Patient to well today. She states that she has not had any pain and is well under control. She has still not had bowel movement. Encouraged hydration and ambulation in the hallways. She continues on IV antibiotics. She denies any nausea, vomiting, shortness breath, chest pain or abdominal pain. Exam Narrative: GENERAL: Comfortable, no acute distress HENMT: moist mucous membranes EYES: EOM intact b/l NECK: no lymphadenopathy RESPIRATORY: clear to auscultation CARDIO: RRR GI: soft, nontender, bowel sounds present SKIN: no rashes EXTREMITIES: no edema, redness or tenderness Objective Data Vital Signs Vital Signs: Vital Signs - 24 hr 01/11/24 13:52 01/11/24 14:27 01/11/24 14:27 Temperature 97.7 F Pulse Rate 63 Respiratory Rate 18 Blood Pressure 127/60 Pulse Oximetry 98 99 99 Oxygen Delivery 01/11/24 17:26 01/11/24 16:00 01/11/24 15:53 Temperature Pulse Rate 61 62 Respiratory Rate 14 Blood Pressure Pulse Oximetry 100 98 Oxygen Delivery Room Air 01/11/24 19:53 01/11/24 20:00 01/11/24 20:00 Temperature 97.9 F Pulse Rate 61 57 L Respiratory Rate 13 18 Blood Pressure 143/69 H Pulse Oximetry 99 97 Oxygen Delivery 01/11/24 23:32 01/11/24 23:32 01/12/24 00:00 Temperature Pulse Rate 57 L Respiratory Rate 14 14 Blood Pressure Pulse Oximetry 95 95 Oxygen Delivery 01/11/24
[2024-01-12 16:15] LABS: Glucose Point of Care 109 mg/dl (65-105)
[2024-01-12] MEDS: GENTAMICIN SULFATE INJ 405 MG in DEXTROSE 5% 100 ML 100 MG IVPB (18:10)
[2024-01-12] MEDS: HYDROmorphon 0.2MG/ML PCA(*CRX 6 MG/30 ML PCA.VIAL IV CONT (18:48)
[2024-01-12 20:59] LABS: Glucose Point of Care 131 mg/dl (65-105)
[2024-01-12] MEDS: HYDROmorphone HCL INJ (*CRX) 1 MG/ML SYR 0.5 MG IV PUSH (23:47)
[2024-01-13] VITALS (14 sets, daily range): BP systolic 116–149; BP diastolic 55–58; PULSE 58–64; RESP 10–18; TEMP 36.1–36.6; O2SAT 98–99
[2024-01-13] MEDS: SODIUM CHLORIDE 0.9% IV 1,000 ML 100 ML IV CONT (02:15)
[2024-01-13] MEDS: HYDROmorphon 0.2MG/ML PCA(*CRX 6 MG/30 ML PCA.VIAL 1 MG IV CONT ×2 (02:45→13:57)
[2024-01-13] MEDS: PIPERACILLN/TAZ 3.375GM/NS50ML 3.375 GM/50 ML BAG IVPB ×4 (02:54→20:21)
[2024-01-13] MEDS: LEVOTHYROXINE SODIUM 50 MCG TABLET PO (05:09)
[2024-01-13 07:11] LABS: Hematocrit 39.9 % (37.0-47.0); Hemoglobin 12.4 g/dL (12.0-15.0); Mean Corpuscular HGB Conc 31.1 g/dl (32-36); Mean Corpuscular Hemoglobin 30.6 pg (26-34); Mean Corpuscular Volume 98.5 fl (80-100); Mean Platelet Volume 9.7 fl (7.4-10.4); Platelet Count Result 279 k/mm3 (150-375); Red Blood Count 4.05 M/mm3 (4.2-5.4); Red Cell Distribution Width 14.5 % (11.5-14.5); White Blood Count 9.6 K/mm3 (4.5-10.0)
[2024-01-13 07:27] LABS: Anion Gap 4 mmol/L (8-16); Blood Urea Nitrogen 7 mg/dL (7-17); Carbon Dioxide 27 mmol/L (22-30); Chloride 103 mmol/L (98-107); Estimated CRCL calculation 90 ml/min; Estimated Glomerular Filt Rate > 60; Glucose 130 mg/dL (65-110); Potassium 3.6 mmol/L (3.4-5.0); Sodium 134 mmol/L (137-145)
[2024-01-13 07:50] LABS: Glucose Point of Care 113 mg/dl (65-105)
[2024-01-13] MEDS: ENOXAPARIN 120 MG/0.8 ML SYRINGE SUB-Q ×2 (08:32→20:22)
[2024-01-13 11:25] LABS: Glucose Point of Care 127 mg/dl (65-105)
--- NOTE | 2024-01-13 13:36 | P.PNIM_ITS ---
Progress Note: A&P Assessment and Plan (1) Sigmoid diverticulitis: Code(s): K57.32 - Diverticulitis of large intestine without perforation or abscess without bleeding Status: Acute Assessment and Plan: She was diagnosed with sigmoid diverticulitis several days ago and has been taking ciprofloxacin and metronidazole as an outpatient. * Continue antibiotics for diverticulitis to include ceftriaxone and metron idazole. * Symptoms improved. Advance diet. * Analgesics and antiemetics are available as needed. * Patient having increased pain overnight. Diesel Fleet Mechanic increased pain medications. See cross cover note. * 3/ General surgery put patient on SUPERVISOR TELLERS for better pain control. * Repeat CT abdomen and pelvis showing septic thrombophlebitis of the inferior mesenteric vein and branches that drain that region of the sigmoid. Early multifocal abscess formation within the sigmoid mesentery is suspected. * General surgery changed antibiotics to Zosyn and gentamicin. Gentamicin added on due to the synergistic affect with penicillins on enterococci coverage. * 3/ Continue abx therapy. SUPERVISOR TELLERS dosing decreased per general surgery. * / Continue abx therapy. Continue SUPERVISOR TELLERS. Due to lack to dietary general surgery recommended TPN. Will Discontinue fluids once TPN is initiated. (2) Mesenteric vein thrombosis: Code(s): K55.069 - Acute infarction of intestine, part and extent unspecified Status: Acute Assessment and Plan: She was also diagnosed with mesenteric vein thrombosis however she did not have her apixaban filled for unclear reasons. * Patient started on heparin drip. * Lactic acid was normal and she is nontoxic in appearance. * Etiology of the thrombus is not entirely clear but may be related to inflammation from diverticulitis or prior gastric sleeve. * Surgery believes thrombus is from diverticulitis. * Will transition her to Eliquis from heparin. * 3/ Eliquis held and Lovenox started in case of surgical need. * At discharge transition pt back to Eliquis. (3) Type 2 diabetes mellitus: Qualifiers: Diabetes mellitus complication status: without complication Diabetes mellitus long term care social worker insulin use: without long term care social worker use Qualified Code(s): E11.9 - Type 2 diabetes mellitus without complications Code(s): E11.9 - Type 2 diabetes mellitus without complications Status: Chronic Assessment and Plan: Insulin Lispro sliding scale, Accu-checks qAc and HS and Hold oral hypoglycemics Initiate hypoglycemic precautions (4) Hypothyroidism (acquired): Code(s): E03.9 - Hypothyroidism, unspecified Status: Acute Assessment and Plan: Continue levothyroxine. Subjective Date/time seen: 01/13/24 13:36 Interval history: Patient reporting lower abdominal pain today. She continues to be on SUPERVISOR TELLERS pump. She was unable to ambulate in the hallways yesterday. Encouraged ambulation today. She denies any nausea vomiting. She still not had a bowel movement. [place] jo[place] she has not been eating much of her liquid diet. States that her abdomen hurts about 30 minutes after eating. Spoke with General surgery and they are recommending TPN for the patient. Will continue the diet in addition to the TPN. Exam Narrative: GENERAL: Comfortable, no acute distress HENMT: moist mucous membranes EYES: EOM intact b/l NECK: no lymphadenopathy RESPIRATORY: clear to auscultation CARDIO: RRR GI: soft, mild left lower quadrant tenderness, bowel sounds present SKIN: no keisha
--- NOTE | 2024-01-13 13:36 | PM.IMPN ---
Progress Note: A&P Assessment and Plan (1) Sigmoid diverticulitis: Code(s): K57.32 - Diverticulitis of large intestine without perforation or abscess without bleeding Status: Acute Assessment and Plan: She was diagnosed with sigmoid diverticulitis several days ago and has been taking ciprofloxacin and metronidazole as an outpatient. Continue antibiotics for diverticulitis to include ceftriaxone and metronidazole. Symptoms improved. Advance diet. Analgesics and antiemetics are available as needed. Patient having increased pain overnight. Bung Sewer increased pain medications. See cross cover note. 01/09 General surgery put patient on GUNSTOCK SPRAY UNIT ADJUSTER for better pain control. Repeat CT abdomen and pelvis showing septic thrombophlebitis of the inferior mesenteric vein and branches that drain that region of the sigmoid. Early multifocal abscess formation within the sigmoid mesentery is suspected. General surgery changed antibiotics to Zosyn and gentamicin. Gentamicin added on due to the synergistic affect with penicillins on enterococci coverage. 01/11 Continue abx therapy. GUNSTOCK SPRAY UNIT ADJUSTER dosing decreased per general surgery. 01/12 Continue abx therapy. Continue GUNSTOCK SPRAY UNIT ADJUSTER. Due to lack to dietary general surgery recommended TPN. Will Discontinue fluids once TPN is initiated. (2) Mesenteric vein thrombosis: Code(s): K55.069 - Acute infarction of intestine, part and extent unspecified Status: Acute Assessment and Plan: She was also diagnosed with mesenteric vein thrombosis however she did not have her apixaban filled for unclear reasons. Patient started on heparin drip. Lactic acid was normal and she is nontoxic in appearance. Etiology of the thrombus is not entirely clear but may be related to inflammation from diverticulitis or prior gastric sleeve. Surgery believes thrombus is from diverticulitis. Will transition her to Eliquis from heparin. 01/09 Eliquis held and Lovenox started in case of surgical need. At discharge transition pt back to Eliquis. (3) Type 2 diabetes mellitus: Qualifiers: Diabetes mellitus complication status: without complication Diabetes mellitus parts counterman insulin use: without parts counterman use Qualified Code(s): E11.9 - Type 2 diabetes mellitus without complications Code(s): E11.9 - Type 2 diabetes mellitus without complications Status: Chronic Assessment and Plan: Insulin Lispro sliding scale, Accu-checks qAc and HS and Hold oral hypoglycemics Initiate hypoglycemic precautions (4) Hypothyroidism (acquired): Code(s): E03.9 - Hypothyroidism, unspecified Status: Acute Assessment and Plan: Continue levothyroxine. Subjective Date/time seen: 01/13/24 13:36 Interval history: Patient reporting lower abdominal pain today. She continues to be on GUNSTOCK SPRAY UNIT ADJUSTER pump. She was unable to ambulate in the hallways yesterday. Encouraged ambulation today. She denies any nausea vomiting. She still not had a bowel movement. States she has not been eating much of her liquid diet. States that her abdomen hurts about 30 minutes after eating. Spoke with General surgery and they are recommending TPN for the patient. Will continue the diet in addition to the TPN. Exam Narrative: GENERAL: Comfortable, no acute distress HENMT: moist mucous membranes EYES: EOM intact b/l NECK: no lymphadenopathy RESPIRATORY: clear to auscultation CARDIO: RRR GI: soft, mild left lower quadrant tenderness, bowel sounds present SKIN: no rashes EXTREMITIES: no edema, redness or tenderness Objective Data Vital Signs Vital Signs: Vital Signs - 24 hr 01/12/24 14:00 01/12/24 18:48 01/12/24 16:00 Temperature 97.2 F L Pulse Rate 68 58 L Respiratory Rate 18 Blood Pressure 132/50 L Pulse Oximetry 97 99 Oxygen Delivery 01/12/24 20:25 01/12/24 20:00 01/12/24 20:00 Temperature 97.1 F L Pulse Rate 60 60 Respiratory Rate 16
--- NOTE | 2024-01-13 14:50 | PM.PNGS ---
Progress Note: A&P Assessment and Plan (1) Septic thrombophlebitis: Code(s): I80.9 - Phlebitis and thrombophlebitis of unspecified site Status: Acute Assessment and Plan: Repeat CT on 01/09 showed probable septic thrombophlebitis of inferior mesenteric vein. This is most likely due to the adjacent sigmoid diverticulitis. She is on therapeutic doses of Lovenox for now. Can convert to oral Eliquis again once we are confident she is not going to need an urgent surgery. Continue IV antibiotics for now. Her oral intake is poor as she feels eating is aggravating her abdominal pain. Discussed the option of placing a PICC line and starting TPN until she is able to tolerate more oral intake for a substantial diet. She is agreeable to this. Will order the PICC line, start TPN, and consult the dietitian for recommendations. (2) Sigmoid diverticulitis: Code(s): K57.32 - Diverticulitis of large intestine without perforation or abscess without bleeding Status: Acute Assessment and Plan: She is showing some signs of slow improvement. Function has not returned yet. She is not tolerating oral intake well, therefore we will order a PICC Line and start TPN as mentioned above. She is still having issues with pain control, therefore we will continue the Dilaudid PIPELINE OPERATOR again today. Continue serial abdominal exams and close observation. Plan I have discussed the patient's case and plan of care with Dr. Zamora. Subjective Subjective Date/Time Seen: 01/13/24 14:50 Patient reports: still having pain, flatus, no bowel movement and afebrile Interval history: Patient seen this morning and this afternoon. She had her PIPELINE OPERATOR changed yesterday with no continuous rate and only bolus. She used this multiple times through the night and required one dose of breakthrough Dilaudid around midnight. She reports intermittent nausea and some dry heaving over the weekend. She had some nausea earlier this morning but it had improved. She is not eating or drinking much. She is only taking in a few bites of her trays and reports less than 50% of all meals. She is not getting any supplements. This afternoon, I quized her more about eating and she states she is not eating because she feels like about 30 minutes after eating her abdominal pain gets worse. She is passing flatus but still no BM. No other complaints at this time. Exam Const: General: comfortable and awake Orientation/consciousness: patient oriented x3 GI: Inspection: non-distended and obesity GI Palp: Yes Soft to palpation, Yes Tenderness to palpation present (GI) (tenderness in LLQ and suprapubic area), No Guarding due to palpation present (GI), No Rebound tenderness present and Yes Other GI palpation findings present (no diffuse peritoneal signs) Auscultation: normal bowel sounds Objective Data Vital Signs Vital Signs: Vital Signs - 24 hr 01/12/24 18:48 01/12/24 16:00 01/12/24 20:25 Temperature 97.1 F L Pulse Rate 58 L 60 Respiratory Rate 18 16 Blood Pressure 150/58 H Pulse Oximetry 99 98 Oxygen Delivery 01/12/24 20:00 01/12/24 20:00 01/13/24 00:00 Temperature Pulse Rate 60 61 Respiratory Rate 20 Blood Pressure Pulse Oximetry 96 Oxygen Delivery Room Air 01/13/24 02:45 01/13/24 02:45 01/13/24 04:00 Temperature Pulse Rate 62 Respiratory Rate 15 15 Blood Pressure Pulse Oximetry 98 98 Oxygen Delivery 01/13/24 05:13 01/13/24 07:34 01/13/24 08:00 Temperature 97 F L Pulse Rate 62 63 58 L Respiratory Rate 10 L 14 Blood Pressure 116/56 L Pulse Oximetry 98 99 Oxygen Delivery Room Air 01/13/24 08:00 01/13/24 12:00 01/13/24 13:57 Temperature Pulse Rate 59 L Respiratory Rate 18 Blood Pressure Pulse Oximetry 98 Oxygen Delivery Room Air 01/13/24 13:57 01/13/24 14:00 Temperature 96.9 F L Pulse Rate 64 Respiratory Rate 18 16 Blood Pressure 131/55 L Pulse Oximetry 98 98 Oxygen Delivery
[2024-01-13] MEDS: LIDOCAINE HCL 1% PF INJ 5 ML VIAL INFILTRATE (16:20)
[2024-01-13] MEDS: GENTAMICIN SULFATE INJ 405 MG in DEXTROSE 5% 100 ML 100 MG IVPB (17:17)
[2024-01-13] MEDS: HYDROmorphone HCL INJ (*CRX) 1 MG/ML SYR 0.5 MG IV PUSH (17:17)
[2024-01-13 17:55] LABS: Glucose Point of Care 106 mg/dl (65-105)
[2024-01-13] MEDS: AMINO ACIDS 5%/D15W/E-LYTES/CA 2,000 ML with MULTIVITAMINS-12 INJ VIAL 1 2.5 ML, MULTIV... 40 ML IV CONT (18:28)
[2024-01-13] MEDS: FAT EMULSIONS IV 20% 250 ML 20.83 ML IVPB (18:29)
[2024-01-13] MEDS: CENTRAL LINE FLUSH 10 ML IV PUSH (20:22)
[2024-01-13 20:27] LABS: Glucose Point of Care 139 mg/dl (65-105)
[2024-01-13] MEDS: HYDROmorphon 0.2MG/ML PCA(*CRX 6 MG/30 ML PCA.VIAL IV CONT (23:58)
[2024-01-14] VITALS (12 sets, daily range): BP systolic 132–147; BP diastolic 60–65; PULSE 52–63; RESP 14–18; TEMP 36.1–36.6; O2SAT 93–99; BMI 38.5
[2024-01-14] MEDS: PIPERACILLN/TAZ 3.375GM/NS50ML 3.375 GM/50 ML BAG IVPB ×4 (02:34→20:08)
[2024-01-14] MEDS: ONDANSETRON INJ 4 MG/2 ML VIAL IV PUSH ×2 (03:20→20:13)
[2024-01-14] MEDS: LEVOTHYROXINE SODIUM 50 MCG TABLET PO (06:10)
[2024-01-14] MEDS: CENTRAL LINE FLUSH 10 ML IV PUSH ×3 (06:14→20:10)
[2024-01-14 06:41] LABS: Anion Gap 6 mmol/L (8-16); Blood Urea Nitrogen 7 mg/dL (7-17); Calcium 8.2 mg/dL (8.4-10.2); Carbon Dioxide 28 mmol/L (22-30); Chloride 101 mmol/L (98-107); Estimated CRCL calculation 103 ml/min; Estimated Glomerular Filt Rate > 60; Glucose 173 mg/dL (65-110); Phosphorus 3.2 mg/dL (2.5-4.5); Potassium 3.7 mmol/L (3.4-5.0); Sodium 135 mmol/L (137-145)
[2024-01-14 06:58] LABS: Gentamicin Trough 1.3 ug/mL (<1.0)
[2024-01-14 07:37] LABS: Glucose Point of Care 168 mg/dl (65-105)
[2024-01-14] MEDS: ENOXAPARIN 120 MG/0.8 ML SYRINGE SUB-Q ×2 (09:25→20:10)
[2024-01-14] MEDS: PANTOPRAZOLE SODIUM IV 40 MG VIAL IV PUSH ×2 (09:27→20:10)
[2024-01-14] MEDS: HYDROmorphone HCL INJ (*CRX) 1 MG/ML SYR 0.5 MG IV PUSH (09:43)
[2024-01-14 10:16] LABS: Hematocrit 37.7 % (37.0-47.0); Hemoglobin 12.3 g/dL (12.0-15.0); Mean Corpuscular HGB Conc 32.6 g/dl (32-36); Mean Corpuscular Hemoglobin 31.9 pg (26-34); Mean Corpuscular Volume 97.7 fl (80-100); Mean Platelet Volume 9.6 fl (7.4-10.4); Platelet Count Result 228 k/mm3 (150-375); Red Blood Count 3.86 M/mm3 (4.2-5.4); Red Cell Distribution Width 14.6 % (11.5-14.5)
[2024-01-14 11:12] LABS: Glucose Point of Care 181 mg/dl (65-105)
--- NOTE | 2024-01-14 11:53 | PM.PNGS ---
Progress Note: A&P Assessment and Plan (1) Septic thrombophlebitis: Code(s): I80.9 - Phlebitis and thrombophlebitis of unspecified site Status: Acute Assessment and Plan: Repeat CT on 01/09 showed probable septic thrombophlebitis of inferior mesenteric vein. This is most likely due to the adjacent sigmoid diverticulitis. She is on therapeutic doses of Lovenox for now. Can convert to oral Eliquis again once we are confident she is not going to need an urgent surgery. Continue IV antibiotics and anticoagulation. (2) Sigmoid diverticulitis: Code(s): K57.32 - Diverticulitis of large intestine without perforation or abscess without bleeding Status: Acute Assessment and Plan: She is slowly improving. WBC count normal again today. Bowel function has not returned yet. Multiple factors likely playing a role in this, and she was encouraged to try increasing activity, walk the halls, and minimize narcotics. She is unable to tolerate much oral intake, so we have started TPN and now has a PICC line in place. Will keep her on full liquids and Ensure supplements were added. Dietitian consulted. Continue IV antibiotics. No diffuse peritoneal signs. Continue serial abdominal exams and close observation. Plan I have discussed the patient's case and plan of care with Dr. Zamora. Subjective Subjective Date/Time Seen: 01/14/24 11:53 Patient reports: no new complaints, feels better, flatus, no bowel movement and afebrile Interval history: Patient reports her abdominal pain has improved some since yesterday. She did not get out of bed and walk the halls yesterday because she felt like her pain was uncontrolled. She plans to get up and walk today. She denies any nausea or dry heaving. She still has only taken in a little orally. Documentation appears that patient has been eating over 50% of meals but when I aked her she reports only taking a few bites yesterday and drinking very little, the rest she has given to her to take off her tray. Discussed with nursing staff to keep an accurate I&O by asking patient since we now have her on TPN. Patient is still passing flatus and feels like she could have a BM this morning, but has not yet had one. Exam Const: General: comfortable, no acute distress and awake Orientation/consciousness: patient oriented x3 GI: Inspection: non-distended and obesity GI Palp: Yes Soft to palpation, Yes Tenderness to palpation present (GI) (mild tenderness in the suprapubic area and LLQ), No Guarding due to palpation present (GI) and No Rebound tenderness present Auscultation: normal bowel sounds Objective Data Vital Signs Vital Signs: Vital Signs - 24 hr 01/13/24 12:00 01/13/24 13:57 01/13/24 13:57 Temperature Pulse Rate 59 L Respiratory Rate 18 18 Blood Pressure Pulse Oximetry 98 98 Oxygen Delivery 01/13/24 14:00 01/13/24 16:00 01/13/24 19:29 Temperature 96.9 F L Pulse Rate 64 59 L 62 Respiratory Rate 16 17 Blood Pressure 131/55 L Pulse Oximetry 98 98 Oxygen Delivery Room Air 01/13/24 21:42 01/13/24 20:00 01/13/24 23:35 Temperature 97.9 F Pulse Rate 59 L Respiratory Rate 14 18 Blood Pressure 149/58 H Pulse Oximetry 99 98 Oxygen Delivery Room Air 01/14/24 01:03 01/13/24 20:00 01/14/24 00:00 Temperature Pulse Rate 59 L 59 L Respiratory Rate 18 Blood Pressure Pulse Oximetry 97 Oxygen Delivery 01/14/24 05:55 01/14/24 07:50 01/14/24 08:00 Temperature 97.6 F Pulse Rate 55 L 55 L 53 L Respiratory Rate 16 14 Blood Pressure 147/65 H Pulse Oximetry 99 93 Oxygen Delivery Room Air Intake/Output Intake/Output: Intake & Output 01/11/24 01/12/24 01/13/24 01/14/24 23:59 23:59 23:59 23:59 Intake Total 2211.425 3030.125 2250 850 Balance 2211.425 3030.125 2250 850 Meds/Results Medications: Active Medications Generic Name Dose Route Start Last Admin Trade Name Freq PRN Reason Stop Dose Admin
[2024-01-14] MEDS: HYDROmorphon 0.2MG/ML PCA(*CRX 6 MG/30 ML PCA.VIAL IV CONT (12:20)
--- NOTE | 2024-01-14 13:40 | P.PNIM_ITS ---
Progress Note: A&P Assessment and Plan (1) Sigmoid diverticulitis: Code(s): K57.32 - Diverticulitis of large intestine without perforation or abscess without bleeding Status: Acute Assessment and Plan: She was diagnosed with sigmoid diverticulitis several days ago and has been taking ciprofloxacin and metronidazole as an outpatient. * Continue antibiotics for diverticulitis to include ceftriaxone and metron idazole. * Symptoms improved. Advance diet. * Analgesics and antiemetics are available as needed. * Patient having increased pain overnight. Tabulating Supervisor increased pain medications. See cross cover note. * 01/09 General surgery put patient on TRAVEL ADMINISTRATOR for better pain control. * Repeat CT abdomen and pelvis showing septic thrombophlebitis of the inferior mesenteric vein and branches that drain that region of the sigmoid. Early multifocal abscess formation within the sigmoid mesentery is suspected. * General surgery changed antibiotics to Zosyn and gentamicin. Gentamicin added on due to the synergistic affect with penicillins on enterococci coverage. * TPN continued until tolerating oral intake * monitor phos/mag/BMP * de-escalate pain medication * encourage activity (2) Mesenteric vein thrombosis: Code(s): K55.069 - Acute infarction of intestine, part and extent unspecified Status: Acute Assessment and Plan: She was also diagnosed with mesenteric vein thrombosis however she did not have her apixaban filled for unclear reasons. * Patient started on heparin drip. * Lactic acid was normal and she is nontoxic in appearance. * Etiology of the thrombus is not entirely clear but may be related to inflammation from diverticulitis or prior gastric sleeve. * Surgery believes thrombus is from diverticulitis. * Lovenox BID 1mg/kg transition to eliquis at discharge. (3) Type 2 diabetes mellitus: Qualifiers: Diabetes mellitus complication status: without complication Diabetes mellitus terminal operations supervisor insulin use: without terminal operations supervisor use Qualified Code(s): E11.9 - Type 2 diabetes mellitus without complications Code(s): E11.9 - Type 2 diabetes mellitus without complications Status: Chronic Assessment and Plan: * Accu-Cheks a.c. HS * sliding scale insulin * hold oral diabetic medications * resume patient's home long-acting * Hemoglobin A1c goal less than * Watch for hypoglycemia/hypoglycemic protocol ordered (4) Hypothyroidism (acquired): Code(s): E03.9 - Hypothyroidism, unspecified Status: Acute Assessment and Plan: * Stable * Resume levothyroxine Plan Code status: Full code per patient DVT prophylaxis: Lovenox full dose BID tranistion to PO Eliquis at discharge Stress ulcer prophylaxis: Protonix 40 daily PT/OT notes: ambulatory Disposition: Patient continues admission to the medical unit since unable to tolerate oral intake remains on TPN continuing IV antibiotics in the encouraged patient to increase activity and deescalate pain medication. advance diet when tolerated will discharge to home when medically stable. Time Spent With Patient Time with patient: 25 - 35 minutes Subjective Date/time seen: 01/14/24 13:41 Interval history: (Per Medical Record) Chief Complaint: Back and abdominal pain. Narrative: This is a pleasant 63-year-old female with history of diverticulitis, gastric sleeve, gastroesophageal reflux disease, kidney stones, hypothyroidism and type 2 diabet
--- NOTE | 2024-01-14 13:40 | PM.IMPN ---
Progress Note: A&P Assessment and Plan (1) Sigmoid diverticulitis: Code(s): K57.32 - Diverticulitis of large intestine without perforation or abscess without bleeding Status: Acute Assessment and Plan: She was diagnosed with sigmoid diverticulitis several days ago and has been taking ciprofloxacin and metronidazole as an outpatient. Continue antibiotics for diverticulitis to include ceftriaxone and metronidazole. Symptoms improved. Advance diet. Analgesics and antiemetics are available as needed. Patient having increased pain overnight. Nutritionist increased pain medications. See cross cover note. 01/09 General surgery put patient on FLOOR RENOVATOR for better pain control. Repeat CT abdomen and pelvis showing septic thrombophlebitis of the inferior mesenteric vein and branches that drain that region of the sigmoid. Early multifocal abscess formation within the sigmoid mesentery is suspected. General surgery changed antibiotics to Zosyn and gentamicin. Gentamicin added on due to the synergistic affect with penicillins on enterococci coverage. TPN continued until tolerating oral intake monitor phos/mag/BMP de-escalate pain medication encourage activity (2) Mesenteric vein thrombosis: Code(s): K55.069 - Acute infarction of intestine, part and extent unspecified Status: Acute Assessment and Plan: She was also diagnosed with mesenteric vein thrombosis however she did not have her apixaban filled for unclear reasons. Patient started on heparin drip. Lactic acid was normal and she is nontoxic in appearance. Etiology of the thrombus is not entirely clear but may be related to inflammation from diverticulitis or prior gastric sleeve. Surgery believes thrombus is from diverticulitis. Lovenox BID 1mg/kg transition to eliquis at discharge. (3) Type 2 diabetes mellitus: Qualifiers: Diabetes mellitus complication status: without complication Diabetes mellitus senior care insulin use: without senior care use Qualified Code(s): E11.9 - Type 2 diabetes mellitus without complications Code(s): E11.9 - Type 2 diabetes mellitus without complications Status: Chronic Assessment and Plan: Accu-Cheks a.c. HS sliding scale insulin hold oral diabetic medications resume patient's home long-acting Hemoglobin A1c goal less than Watch for hypoglycemia/hypoglycemic protocol ordered (4) Hypothyroidism (acquired): Code(s): E03.9 - Hypothyroidism, unspecified Status: Acute Assessment and Plan: Stable Resume levothyroxine Plan Code status: Full code per patient DVT prophylaxis: Lovenox full dose BID tranistion to PO Eliquis at discharge Stress ulcer prophylaxis: Protonix 40 daily PT/OT notes: ambulatory Disposition: Patient continues admission to the medical unit since unable to tolerate oral intake remains on TPN continuing IV antibiotics in the encouraged patient to increase activity and deescalate pain medication. advance diet when tolerated will discharge to home when medically stable. Time Spent With Patient Time with patient: 25 - 35 minutes Subjective Date/time seen: 01/14/24 13:41 Interval history: (Per Medical Record) Chief Complaint: Back and abdominal pain. Narrative: This is a pleasant 63-year-old female with history of diverticulitis, gastric sleeve, gastroesophageal reflux disease, kidney stones, hypothyroidism and type 2 diabetes mellitus who presented to the emergency department via private vehicle from home for evaluation of back and abdominal pain.? The patient provides the following history. She has not been feeling well for approximately 9 days and her symptoms initially started as generalized body aches, fatigue, nausea, and fever up to 102.8? F. she tested negative for influenza and COVID at that time and treated her symptoms with Tylenol and Aleve. A couple of days later she develope
[2024-01-14] MEDS: ACETAMINOPHEN 325 MG TABLET 650 MG PO ×2 (15:02→20:12)
[2024-01-14] MEDS: AMINO ACIDS 5%/D15W/E-LYTES/CA 2,000 ML with MULTIVITAMINS-12 INJ VIAL 1 2.5 ML, MULTIV... 40 ML IV CONT (15:06)
[2024-01-14] MEDS: FAT EMULSIONS IV 20% 250 ML 20.83 ML IVPB (15:06)
[2024-01-14 15:10] LABS: Triglycerides 145 mg/dL (<150)
[2024-01-14 16:28] LABS: Glucose Point of Care 171 mg/dl (65-105)
[2024-01-14] MEDS: GENTAMICIN SULFATE INJ 405 MG in DEXTROSE 5% 100 ML 100 MG IVPB (16:29)
[2024-01-14 20:35] LABS: Glucose Point of Care 188 mg/dl (65-105)
[2024-01-15] VITALS (15 sets, daily range): BP systolic 124–135; BP diastolic 59–71; PULSE 51–70; RESP 14–20; TEMP 36.1–36.9; O2SAT 95–100
[2024-01-15] MEDS: PIPERACILLN/TAZ 3.375GM/NS50ML 3.375 GM/50 ML BAG IVPB ×4 (03:33→20:05)
[2024-01-15] MEDS: HYDROmorphon 0.2MG/ML PCA(*CRX 6 MG/30 ML PCA.VIAL IV CONT ×2 (04:05→20:03)
[2024-01-15] MEDS: ONDANSETRON INJ 4 MG/2 ML VIAL IV PUSH ×2 (05:44→20:06)
[2024-01-15] MEDS: LEVOTHYROXINE SODIUM 50 MCG TABLET PO (05:44)
[2024-01-15] MEDS: CENTRAL LINE FLUSH 10 ML IV PUSH ×3 (05:44→20:06)
[2024-01-15 05:52] LABS: Basophils Percent Auto 0.5 % (0.2-1.2); Eosinophils Absolute Auto 0.1 K/mm3 (0-0.3); Eosinophils Percent Auto 2.3 % (0-4.4); Hematocrit 36.9 % (37.0-47.0); Immature Granulocyte Absolute 0.03 K/mm3 (0.00-0.031); Immature Granulocyte Percent A 0.5 % (0-0.5); Lymphocytes Absolute Auto 1.44 K/mm3 (0.9-3.2); Lymphocytes Percent Auto 23.6 % (18.3-44.2); Mean Corpuscular HGB Conc 32.5 g/dl (32-36); Mean Corpuscular Hemoglobin 31.5 pg (26-34); Mean Corpuscular Volume 96.9 fl (80-100); Mean Platelet Volume 9.9 fl (7.4-10.4); Monocytes Absolute Auto 0.6 K/mm3 (0.1-0.6); Monocytes Percent Auto 10.2 % (2.6-8.5); Neutrophils Absolute Auto 3.8 K/mm3 (1.3-6.7); Neutrophils Percent Auto 62.9 % (45.5-73.1); Platelet Count Result 213 k/mm3 (150-375); Red Blood Count 3.81 M/mm3 (4.2-5.4); Red Cell Distribution Width 14.4 % (11.5-14.5); White Blood Count 6.1 K/mm3 (4.5-10.0)
[2024-01-15 06:13] LABS: Alanine Aminotransferase 13 U/L (6-35); Alkaline Phosphatase 80 U/L (38-126); Anion Gap 3 mmol/L (8-16); Aspartate Amino Transferase 11 U/L (14-36); Bilirubin,Total 0.6 mg/dL (0.2-1.3); Blood Urea Nitrogen 9 mg/dL (7-17); Calcium 8.1 mg/dL (8.4-10.2); Carbon Dioxide 29 mmol/L (22-30); Chloride 103 mmol/L (98-107); Estimated CRCL calculation 103 ml/min; Estimated Glomerular Filt Rate > 60; Glucose 168 mg/dL (65-110); Magnesium 2.4 mg/dL (1.6-2.3); Potassium 3.6 mmol/L (3.4-5.0); Sodium 135 mmol/L (137-145)
[2024-01-15] MEDS: HYDROmorphone HCL INJ (*CRX) 1 MG/ML SYR 0.5 MG IV PUSH ×2 (06:37→23:16)
[2024-01-15 07:35] LABS: Glucose Point of Care 164 mg/dl (65-105)
--- NOTE | 2024-01-15 08:12 | P.PNIM_ITS ---
Progress Note: A&P Assessment and Plan (1) Sigmoid diverticulitis: Code(s): K57.32 - Diverticulitis of large intestine without perforation or abscess without bleeding Status: Acute Assessment and Plan: She was diagnosed with sigmoid diverticulitis several days ago and has been taking ciprofloxacin and metronidazole as an outpatient. * Continue antibiotics for diverticulitis to include ceftriaxone and metron idazole. * Symptoms improved. Advance diet. * Analgesics and antiemetics are available as needed. * Patient having increased pain overnight. Inside Sales Administrator increased pain medications. See cross cover note. * 01/09 General surgery put patient on MACHINE ENGINEER for better pain control. * Repeat CT abdomen and pelvis showing septic thrombophlebitis of the inferior mesenteric vein and branches that drain that region of the sigmoid. Early multifocal abscess formation within the sigmoid mesentery is suspected. * General surgery changed antibiotics to Zosyn and gentamicin. Gentamicin added on due to the synergistic affect with penicillins on enterococci coverage. * TPN continued until tolerating oral intake * monitor phos/mag/BMP * de-escalate pain medication * encourage activity 01/14: * Bowel series with moderate amount of stool * reports gas no BM * MOM x 1 per surgery attempt to get bowels moving * continue TPN until we advance diet (2) Mesenteric vein thrombosis: Code(s): K55.069 - Acute infarction of intestine, part and extent unspecified Status: Acute Assessment and Plan: She was also diagnosed with mesenteric vein thrombosis however she did not have her apixaban filled for unclear reasons. * Patient started on heparin drip. * Lactic acid was normal and she is nontoxic in appearance. * Etiology of the thrombus is not entirely clear but may be related to inflammation from diverticulitis or prior gastric sleeve. * Surgery believes thrombus is from diverticulitis. * Lovenox BID 1mg/kg transition to eliquis at discharge. (3) Type 2 diabetes mellitus: Qualifiers: Diabetes mellitus complication status: without complication Diabetes mellitus vice president global digital marketing insulin use: without prison use Qualified Code(s): E11.9 - Type 2 diabetes mellitus without complications Code(s): E11.9 - Type 2 diabetes mellitus without complications Status: Chronic Assessment and Plan: * Accu-Cheks a.c. HS * sliding scale insulin * hold oral diabetic medications * resume patient's home long-acting * Hemoglobin A1c goal less than * Watch for hypoglycemia/hypoglycemic protocol ordered (4) Hypothyroidism (acquired): Code(s): E03.9 - Hypothyroidism, unspecified Status: Acute Assessment and Plan: * Stable * Resume levothyroxine Plan Code status: Full code per patient DVT prophylaxis: Lovenox full dose BID tranistion to PO Eliquis at discharge Stress ulcer prophylaxis: Protonix 40 daily PT/OT notes: ambulatory Disposition: Patient continues admission to the medical unit since unable to tolerate oral intake remains on TPN continuing IV antibiotics in the encouraged patient to increase activity and deescalate pain medication. advance diet when tolerated will discharge to home when medically stable. Time Spent With Patient Time with patient: 25 - 35 minutes Subjective Date/time seen: 01/15/24 08:12 Interval history: (Per Medical Record) Chief Complaint: Back and abdominal pain. Narrat
--- NOTE | 2024-01-15 08:12 | PM.IMPN ---
Progress Note: A&P Assessment and Plan (1) Sigmoid diverticulitis: Code(s): K57.32 - Diverticulitis of large intestine without perforation or abscess without bleeding Status: Acute Assessment and Plan: She was diagnosed with sigmoid diverticulitis several days ago and has been taking ciprofloxacin and metronidazole as an outpatient. Continue antibiotics for diverticulitis to include ceftriaxone and metronidazole. Symptoms improved. Advance diet. Analgesics and antiemetics are available as needed. Patient having increased pain overnight. Animal Therapist increased pain medications. See cross cover note. 01/09 General surgery put patient on SILICATOR for better pain control. Repeat CT abdomen and pelvis showing septic thrombophlebitis of the inferior mesenteric vein and branches that drain that region of the sigmoid. Early multifocal abscess formation within the sigmoid mesentery is suspected. General surgery changed antibiotics to Zosyn and gentamicin. Gentamicin added on due to the synergistic affect with penicillins on enterococci coverage. TPN continued until tolerating oral intake monitor phos/mag/BMP de-escalate pain medication encourage activity 01/14: Bowel series with moderate amount of stool reports gas no BM MOM x 1 per surgery attempt to get bowels moving continue TPN until we advance diet (2) Mesenteric vein thrombosis: Code(s): K55.069 - Acute infarction of intestine, part and extent unspecified Status: Acute Assessment and Plan: She was also diagnosed with mesenteric vein thrombosis however she did not have her apixaban filled for unclear reasons. Patient started on heparin drip. Lactic acid was normal and she is nontoxic in appearance. Etiology of the thrombus is not entirely clear but may be related to inflammation from diverticulitis or prior gastric sleeve. Surgery believes thrombus is from diverticulitis. Lovenox BID 1mg/kg transition to eliquis at discharge. (3) Type 2 diabetes mellitus: Qualifiers: Diabetes mellitus complication status: without complication Diabetes mellitus intermodal dispatcher insulin use: without correction use Qualified Code(s): E11.9 - Type 2 diabetes mellitus without complications Code(s): E11.9 - Type 2 diabetes mellitus without complications Status: Chronic Assessment and Plan: Accu-Cheks a.c. HS sliding scale insulin hold oral diabetic medications resume patient's home long-acting Hemoglobin A1c goal less than Watch for hypoglycemia/hypoglycemic protocol ordered (4) Hypothyroidism (acquired): Code(s): E03.9 - Hypothyroidism, unspecified Status: Acute Assessment and Plan: Stable Resume levothyroxine Plan Code status: Full code per patient DVT prophylaxis: Lovenox full dose BID tranistion to PO Eliquis at discharge Stress ulcer prophylaxis: Protonix 40 daily PT/OT notes: ambulatory Disposition: Patient continues admission to the medical unit since unable to tolerate oral intake remains on TPN continuing IV antibiotics in the encouraged patient to increase activity and deescalate pain medication. advance diet when tolerated will discharge to home when medically stable. Time Spent With Patient Time with patient: 25 - 35 minutes Subjective Date/time seen: 01/15/24 08:12 Interval history: (Per Medical Record) Chief Complaint: Back and abdominal pain. Narrative: This is a pleasant 63-year-old female with history of diverticulitis, gastric sleeve, gastroesophageal reflux disease, kidney stones, hypothyroidism and type 2 diabetes mellitus who presented to the emergency department via private vehicle from home for evaluation of back and abdominal pain.? The patient provides the following history. She has not been feeling well for approximately 9 days and her symptoms initially started as generalized body aches, fatigue, nausea, and fever
[2024-01-15] MEDS: PANTOPRAZOLE SODIUM IV 40 MG VIAL IV PUSH ×2 (08:33→20:05)
[2024-01-15] MEDS: ENOXAPARIN 120 MG/0.8 ML SYRINGE SUB-Q ×2 (08:34→20:05)
--- NOTE | 2024-01-15 10:10 | PM.PNGS ---
Progress Note: A&P Assessment and Plan (1) Septic thrombophlebitis: Code(s): I80.9 - Phlebitis and thrombophlebitis of unspecified site Status: Acute Assessment and Plan: Repeat CT on 01/09 showed probable septic thrombophlebitis of inferior mesenteric vein. This is most likely due to the adjacent sigmoid diverticulitis. Still having abdominal pain. Obstructive series yesterday showed moderate amount of stool in the colon. Some of her abdominal pain could be related to constipation. Will give one dose of milk of magnesia today. Continue IV antibiotics and anticoagulation. (2) Sigmoid diverticulitis: Code(s): K57.32 - Diverticulitis of large intestine without perforation or abscess without bleeding Status: Acute Assessment and Plan: WBC count normal again today. Bowel function has not returned yet. Will try to gently stimulate her bowels. Encouraged to try increasing activity, walk the halls, and minimize narcotics. Will keep her on full liquids today until bowels are moving and continue TPN. Continue Ensure supplements. Plan I have discussed the patient's case and plan of care with Dr. Zamora. Subjective Subjective Date/Time Seen: 01/15/24 10:10 Patient reports: no new complaints, still having pain, voiding w/o difficulty, flatus, no bowel movement and afebrile Interval history: Patient still having abdominal pain, but tried to minimize how much Dilaudid from the MOLASSES FEED MIXER she was requiring overnight. She felt that was the reason it wasn't as well controlled. She feels bloated and still has not had a bowel movement. No nausea or vomiting. Exam Const: General: comfortable and awake Orientation/consciousness: patient oriented x3 GI: Inspection: non-distended GI Palp: Yes Soft to palpation, Yes Tenderness to palpation present (GI) (mild tenderness in the LLQ), No Guarding due to palpation present (GI) and No Rebound tenderness present Auscultation: normal bowel sounds Psych: Mental Status: mental status grossly normal Objective Data Vital Signs Vital Signs: Vital Signs - 24 hr 01/14/24 12:20 01/14/24 12:20 01/14/24 12:00 Temperature Pulse Rate 60 Respiratory Rate 15 15 Blood Pressure Pulse Oximetry 97 97 Oxygen Delivery 01/14/24 14:00 01/14/24 16:00 01/14/24 20:21 Temperature 97.0 F L Pulse Rate 63 63 Respiratory Rate 16 18 Blood Pressure 136/60 Pulse Oximetry 97 94 Oxygen Delivery Room Air 01/14/24 21:34 01/14/24 20:00 01/15/24 04:10 Temperature 97.8 F Pulse Rate 55 L Respiratory Rate 18 16 Blood Pressure 132/60 Pulse Oximetry 99 97 Oxygen Delivery Room Air 01/14/24 20:00 01/15/24 00:00 01/15/24 04:00 Temperature Pulse Rate 52 L 53 L 62 Respiratory Rate Blood Pressure Pulse Oximetry Oxygen Delivery 01/15/24 06:00 01/15/24 07:41 01/15/24 09:09 Temperature 97.7 F 96.9 F L Pulse Rate 61 54 L Respiratory Rate 18 20 Blood Pressure 129/65 124/59 L Pulse Oximetry 96 99 95 Oxygen Delivery Room Air 01/15/24 08:00 Temperature Pulse Rate 62 Respiratory Rate Blood Pressure Pulse Oximetry Oxygen Delivery Intake/Output Intake/Output: Intake & Output 01/12/24 01/13/24 01/14/24 01/15/24 23:59 23:59 23:59 23:59 Intake Total 3030.125 2360.125 3703.125 530 Balance 3030.125 2360.125 3703.125 530 Meds/Results Medications: Active Medications Generic Name Dose Route Start Last Admin Trade Name Freq PRN Reason Stop Dose Admin Acetaminophen 650 mg 01/14/24 14:48 01/14/24 20:12 Acetaminophen 325 Mg Tablet PO 650 mg Q4H PRN Administration Headache Calcium Carbonate 200 mg 01/08/24 11:58 01/11/24 20:27 Calcium Carbonate (Tums) 500 Mg (200 Mg Elemental) PO 200 mg Q6H PRN Administration Indigestion Dextrose 12.5 gm 01/06/24 22:31 Dextrose 50% 25 Gm/50 Ml Syringe IV PUSH PRN PRN Hypoglycemia Protocol Diphenhydramine HCl 50 mg 01/06/24 19:
[2024-01-15] MEDS: MAGNESIUM HYDROXIDE SUSP 30 ML UDC PO (10:19)
[2024-01-15 11:49] LABS: Glucose Point of Care 198 mg/dl (65-105)
[2024-01-15] MEDS: ACETAMINOPHEN 325 MG TABLET 650 MG PO (13:58)
[2024-01-15] MEDS: AMINO ACIDS 5%/D15W/E-LYTES/CA 2,000 ML with MULTIVITAMINS-12 INJ VIAL 1 2.5 ML, MULTIV... 40 ML IV CONT (15:00)
[2024-01-15] MEDS: FAT EMULSIONS IV 20% 250 ML 20.83 ML IVPB (15:00)
[2024-01-15] MEDS: GENTAMICIN SULFATE INJ 405 MG in DEXTROSE 5% 100 ML 100 MG IVPB (16:54)
[2024-01-15 17:11] LABS: Glucose Point of Care 162 mg/dl (65-105)
[2024-01-15 20:35] LABS: Glucose Point of Care 154 mg/dl (65-105)
[2024-01-16] VITALS (9 sets, daily range): BP systolic 126–127; BP diastolic 69; PULSE 50–87; RESP 14–18; TEMP 36.4–36.7; O2SAT 97–100
[2024-01-16] MEDS: PIPERACILLN/TAZ 3.375GM/NS50ML 3.375 GM/50 ML BAG IVPB ×4 (03:34→20:12)
[2024-01-16] MEDS: LEVOTHYROXINE SODIUM 50 MCG TABLET PO (05:56)
[2024-01-16] MEDS: CENTRAL LINE FLUSH 10 ML IV PUSH ×3 (05:57→20:14)
[2024-01-16] MEDS: HYDROmorphon 0.2MG/ML PCA(*CRX 6 MG/30 ML PCA.VIAL IV CONT (06:13)
[2024-01-16 07:32] LABS: Glucose Point of Care 184 mg/dl (65-105)
--- NOTE | 2024-01-16 08:08 | P.PNIM_ITS ---
Progress Note: A&P Assessment and Plan (1) Sigmoid diverticulitis: Code(s): K57.32 - Diverticulitis of large intestine without perforation or abscess without bleeding Status: Acute Assessment and Plan: She was diagnosed with sigmoid diverticulitis several days ago and has been taking ciprofloxacin and metronidazole as an outpatient. * Continue antibiotics for diverticulitis to include ceftriaxone and metron idazole. * Symptoms improved. Advance diet. * Analgesics and antiemetics are available as needed. * Patient having increased pain overnight. Classifications Officer Cc/Cm increased pain medications. See cross cover note. * 01/09 General surgery put patient on HOB MACHINE OPERATOR for better pain control. * Repeat CT abdomen and pelvis showing septic thrombophlebitis of the inferior mesenteric vein and branches that drain that region of the sigmoid. Early multifocal abscess formation within the sigmoid mesentery is suspected. * General surgery changed antibiotics to Zosyn and gentamicin. Gentamicin added on due to the synergistic affect with penicillins on enterococci coverage. * TPN continued until tolerating oral intake * monitor phos/mag/BMP * de-escalate pain medication * encourage activity 01/14: * Bowel series with moderate amount of stool * reports gas no BM * MOM x 1 per surgery attempt to get bowels moving * continue TPN until we advance diet 01/15: * still no BM but reports gas * bowel regiment deferred to general surgery * continue to encourage activity and oral hydration as tolerated * TPN until advancing diet * need to wean pain management (2) Mesenteric vein thrombosis: Code(s): K55.069 - Acute infarction of intestine, part and extent unspecified Status: Acute Assessment and Plan: She was also diagnosed with mesenteric vein thrombosis however she did not have her apixaban filled for unclear reasons. * Patient started on heparin drip. * Lactic acid was normal and she is nontoxic in appearance. * Etiology of the thrombus is not entirely clear but may be related to inflammation from diverticulitis or prior gastric sleeve. * Surgery believes thrombus is from diverticulitis. * Lovenox BID 1mg/kg transition to eliquis at discharge. (3) Type 2 diabetes mellitus: Qualifiers: Diabetes mellitus complication status: without complication Diabetes mellitus residential insulin use: without residential use Qualified Code(s): E11.9 - Type 2 diabetes mellitus without complications Code(s): E11.9 - Type 2 diabetes mellitus without complications Status: Chronic Assessment and Plan: * Accu-Cheks a.c. HS * sliding scale insulin * hold oral diabetic medications * resume patient's home long-acting * Hemoglobin A1c goal less than * Watch for hypoglycemia/hypoglycemic protocol ordered (4) Hypothyroidism (acquired): Code(s): E03.9 - Hypothyroidism, unspecified Status: Acute Assessment and Plan: * Stable * Resume levothyroxine Plan Code status: Full code per patient DVT prophylaxis: Lovenox full dose BID tranistion to PO Eliquis at discharge Stress ulcer prophylaxis: Protonix 40 daily PT/OT notes: ambulatory Disposition: Patient continues admission to the medical unit since unable to tolerate oral intake remains on TPN continuing IV antibiotics in the encouraged patient to increase activity and deescalate pain medication. advance diet when tolerated will discharge to home when medically stable. Time Spent With
--- NOTE | 2024-01-16 08:08 | PM.IMPN ---
Progress Note: A&P Assessment and Plan (1) Sigmoid diverticulitis: Code(s): K57.32 - Diverticulitis of large intestine without perforation or abscess without bleeding Status: Acute Assessment and Plan: She was diagnosed with sigmoid diverticulitis several days ago and has been taking ciprofloxacin and metronidazole as an outpatient. Continue antibiotics for diverticulitis to include ceftriaxone and metronidazole. Symptoms improved. Advance diet. Analgesics and antiemetics are available as needed. Patient having increased pain overnight. Military Equipment Specialist increased pain medications. See cross cover note. 01/09 General surgery put patient on STAMP PAD FINISHER for better pain control. Repeat CT abdomen and pelvis showing septic thrombophlebitis of the inferior mesenteric vein and branches that drain that region of the sigmoid. Early multifocal abscess formation within the sigmoid mesentery is suspected. General surgery changed antibiotics to Zosyn and gentamicin. Gentamicin added on due to the synergistic affect with penicillins on enterococci coverage. TPN continued until tolerating oral intake monitor phos/mag/BMP de-escalate pain medication encourage activity 01/14: Bowel series with moderate amount of stool reports gas no BM MOM x 1 per surgery attempt to get bowels moving continue TPN until we advance diet 01/15: still no BM but reports gas bowel regiment deferred to general surgery continue to encourage activity and oral hydration as tolerated TPN until advancing diet need to wean pain management (2) Mesenteric vein thrombosis: Code(s): K55.069 - Acute infarction of intestine, part and extent unspecified Status: Acute Assessment and Plan: She was also diagnosed with mesenteric vein thrombosis however she did not have her apixaban filled for unclear reasons. Patient started on heparin drip. Lactic acid was normal and she is nontoxic in appearance. Etiology of the thrombus is not entirely clear but may be related to inflammation from diverticulitis or prior gastric sleeve. Surgery believes thrombus is from diverticulitis. Lovenox BID 1mg/kg transition to eliquis at discharge. (3) Type 2 diabetes mellitus: Qualifiers: Diabetes mellitus complication status: without complication Diabetes mellitus assisted insulin use: without assisted use Qualified Code(s): E11.9 - Type 2 diabetes mellitus without complications Code(s): E11.9 - Type 2 diabetes mellitus without complications Status: Chronic Assessment and Plan: Accu-Cheks a.c. HS sliding scale insulin hold oral diabetic medications resume patient's home long-acting Hemoglobin A1c goal less than Watch for hypoglycemia/hypoglycemic protocol ordered (4) Hypothyroidism (acquired): Code(s): E03.9 - Hypothyroidism, unspecified Status: Acute Assessment and Plan: Stable Resume levothyroxine Plan Code status: Full code per patient DVT prophylaxis: Lovenox full dose BID tranistion to PO Eliquis at discharge Stress ulcer prophylaxis: Protonix 40 daily PT/OT notes: ambulatory Disposition: Patient continues admission to the medical unit since unable to tolerate oral intake remains on TPN continuing IV antibiotics in the encouraged patient to increase activity and deescalate pain medication. advance diet when tolerated will discharge to home when medically stable. Time Spent With Patient Time with patient: 25 - 35 minutes Subjective Date/time seen: 01/16/24 08:08 Interval history: (Per Medical Record) Chief Complaint: Back and abdominal pain. Narrative: This is a pleasant 63-year-old female with history of diverticulitis, gastric sleeve, gastroesophageal reflux disease, kidney stones, hypothyroidism and type 2 diabetes mellitus who presented to the emergency department via private vehicle from home for evaluation of back and
[2024-01-16] MEDS: MAGNESIUM HYDROXIDE SUSP 30 ML UDC PO (09:35)
[2024-01-16] MEDS: ENOXAPARIN 120 MG/0.8 ML SYRINGE SUB-Q ×2 (09:35→20:12)
[2024-01-16] MEDS: PANTOPRAZOLE SODIUM IV 40 MG VIAL IV PUSH ×2 (09:35→20:12)
[2024-01-16] MEDS: ACETAMINOPHEN 325 MG TABLET 650 MG PO (11:26)
[2024-01-16 11:43] LABS: Glucose Point of Care 209 mg/dl (65-105)
--- NOTE | 2024-01-16 12:04 | PCNFU ---
Nutrition Follow-Up Complete: Inadequate oral intake related to diverticulitis, pain, loss of appetite as evidenced by MD consult, need for partial TPN Goal: Tolerate TPN @ goal rate : 40 ml/h for now. Patient is progressing towards goal. We will continue current goal. Pt current nutrition is TPN at 40 ml/hr with Full liquids and Ensure compact BID. Last recorded weight is 109.8 kg, stable Bowel Motility: +BM reported 01/15 Labs Reviewed:No new labs to report. Meds Noted: Clinimix E at 40 ml/hr, Milk of Magnesium, Dilaudid. Skin: WNL Additional Notes: Patient had BM today. States to having a yogurt for breakfast. TPN continues to run at 40ml/hr providing additional 1182 kcals/48 gms protein/1210 ml water. Diet supplements of Ensure Enlive have been ordered TID providing an additional 350 kcals and 20 gms protein. Once oral diet intake improves recommend discontinuing TPN. Agree with diet orders at this time. Monitoring TPN tolerance, weights, labs, plan of care Follow up Tuesdays and Fridays
[2024-01-16] MEDS: INSULIN ASPART (*BKC) 100 UNITS/ML SUB-Q (12:16)
--- NOTE | 2024-01-16 12:40 | WPDPN ---
Progress Note: A&P Assessment and Plan (1) Septic thrombophlebitis: Code(s): I80.9 - Phlebitis and thrombophlebitis of unspecified site Status: Acute Assessment and Plan: Likely the result of the sigmoid diverticulitis. She is on treatment doses of Lovenox for now. No evidence of acute ischemia of the bowel. Continue medical management. (2) Sigmoid diverticulitis: Code(s): K57.32 - Diverticulitis of large intestine without perforation or abscess without bleeding Status: Acute Assessment and Plan: Patient still has not had any bowel function returned yet. She is passing flatus. White blood cell count is normal. Will try to stimulate a bowel movement with another dose of milk of magnesia today. Continue TPN for right now continue full liquids per night now. May consider another CT scan this weekend with water-soluble contrast orally if she does not start having bowel movements soon. Subjective Date/time seen: 01/16/24 12:40 Interval history: Patient without much change today. Still had some pain last night and took at least 1 dose of breakthrough Dilaudid. States she is still passing flatus. No bowel movements yet. She did receive 1 dose of milk of magnesia yesterday. White blood cell count remains normal. She continues on TPN due to mild malnutrition and full liquids with supplements. Obstructive series showed copious amounts of stool within the colon. Exam GI: Other: Abdomen is obese but soft. Mild tenderness to palpation and left lower quadrant the abdomen. There is vague fullness in the left lower quadrant but no peritoneal signs. Objective Data Vital Signs Vital Signs: Vital Signs - 24 hr 01/15/24 14:18 01/15/24 16:00 01/15/24 20:03 Temperature 36.1 C L Pulse Rate 59 L 51 L Respiratory Rate 17 16 Blood Pressure 125/69 Pulse Oximetry 100 97 Oxygen Delivery 01/15/24 20:00 01/15/24 21:47 01/15/24 20:00 Temperature 36.9 C Pulse Rate 70 62 Respiratory Rate 14 Blood Pressure 135/71 Pulse Oximetry 97 Oxygen Delivery Room Air 01/16/24 00:00 01/15/24 20:20 01/16/24 06:13 Temperature Pulse Rate 55 L 67 Respiratory Rate 16 Blood Pressure Pulse Oximetry 97 97 Oxygen Delivery Room Air 01/15/24 22:00 01/16/24 06:00 01/16/24 04:00 Temperature 36.9 C 36.7 C Pulse Rate 70 57 L 55 L Respiratory Rate 14 14 Blood Pressure 135/71 127/69 Pulse Oximetry 97 100 Oxygen Delivery 01/16/24 09:35 Temperature Pulse Rate Respiratory Rate Blood Pressure Pulse Oximetry Oxygen Delivery Room Air Intake/Output Intake/Output: Intake & Output 01/13/24 01/14/24 01/15/24 01/16/24 23:59 23:59 23:59 23:59 Intake Total 2360.125 3703.125 4405.125 380 Balance 2360.125 3703.125 4405.125 380 Meds/Results Medications: Active Medications Generic Name Dose Route Start Last Admin Trade Name Freq PRN Reason Stop Dose Admin Acetaminophen 650 mg 01/14/24 14:48 01/16/24 11:26 Acetaminophen 325 Mg Tablet PO 650 mg Q4H PRN Administration Headache Calcium Carbonate 200 mg 01/08/24 11:58 01/11/24 20:27 Calcium Carbonate (Tums) 500 Mg (200 Mg Elemental) PO 200 mg Q6H PRN Administration Indigestion Dextrose 12.5 gm 01/06/24 22:31 Dextrose 50% 25 Gm/50 Ml Syringe IV PUSH PRN PRN Hypoglycemia Protocol Diphenhydramine HCl 50 mg 01/06/24 19:46 Diphenhydramine Hcl Inj 50 Mg/Ml Vial IV PUSH Q4H PRN Itching Enoxaparin Sodium 120 mg 01/11/24 09:00 01/16/24 09:35 Enoxaparin 120 Mg/0.8 Ml Syringe SUB-Q 120 mg Q12HR BOY Administration Glucagon 1 mg 01/06/24 22:31 Glucagon For Inj 1 Mg Vial IM PRN PRN Hypoglycemia Protocol Glucose 15 gm 01/06/24 22:31 Glucose Oral Gel 15 Gm Of Glucse In 37.5 Gm Tube PO PRN PRN Hypoglycemia Protocol Hydromorphone HCl 0.5 mg 01/12/24 10:12 01/15/24 23:16 Hydrom
[2024-01-16 13:14] LABS: Hematocrit 39.4 % (37.0-47.0); Hemoglobin 12.9 g/dL (12.0-15.0); Mean Corpuscular HGB Conc 32.7 g/dl (32-36); Mean Corpuscular Hemoglobin 31.5 pg (26-34); Mean Corpuscular Volume 96.3 fl (80-100); Mean Platelet Volume 10.6 fl (7.4-10.4); Platelet Count Result 246 k/mm3 (150-375); Red Blood Count 4.09 M/mm3 (4.2-5.4); Red Cell Distribution Width 14.5 % (11.5-14.5); White Blood Count 7.4 K/mm3 (4.5-10.0)
[2024-01-16 13:24] LABS: Alanine Aminotransferase 17 U/L (6-35); Albumin Level 3.5 g/dL (3.5-5.1); Alkaline Phosphatase 100 U/L (38-126); Anion Gap 3 mmol/L (8-16); Aspartate Amino Transferase 23 U/L (14-36); Bilirubin,Total 0.7 mg/dL (0.2-1.3); Blood Urea Nitrogen 10 mg/dL (7-17); Calcium 8.6 mg/dL (8.4-10.2); Carbon Dioxide 30 mmol/L (22-30); Chloride 101 mmol/L (98-107); Estimated CRCL calculation 90 ml/min; Estimated Glomerular Filt Rate > 60; Glucose 190 mg/dL (65-110); Potassium 4.1 mmol/L (3.4-5.0); Sodium 134 mmol/L (137-145)
[2024-01-16 14:49] LABS: Phosphorus 2.9 mg/dL (2.5-4.5); Triglycerides 151 mg/dL (<150)
[2024-01-16] MEDS: AMINO ACIDS 5%/D15W/E-LYTES/CA 2,000 ML with MULTIVITAMINS-12 INJ VIAL 1 2.5 ML, MULTIV... 40 ML IV CONT (15:05)
[2024-01-16] MEDS: FAT EMULSIONS IV 20% 250 ML 20.83 ML IVPB (15:06)
[2024-01-16] MEDS: GENTAMICIN SULFATE INJ 405 MG in DEXTROSE 5% 100 ML 100 MG IVPB (16:30)
[2024-01-16 16:35] LABS: Glucose Point of Care 157 mg/dl (65-105)
[2024-01-16 20:33] LABS: Glucose Point of Care 171 mg/dl (65-105)
[2024-01-16] MEDS: HYDROmorphone HCL INJ (*CRX) 1 MG/ML SYR 0.5 MG IV PUSH (21:47)
[2024-01-16] MEDS: diphenhydrAMINE HCl INJ 50 MG/ML VIAL IV PUSH (21:47)
[2024-01-17] VITALS (12 sets, daily range): BP systolic 113–142; BP diastolic 50–62; PULSE 55–65; RESP 12–20; TEMP 36.1–36.7; O2SAT 99–100
[2024-01-17] MEDS: PIPERACILLN/TAZ 3.375GM/NS50ML 3.375 GM/50 ML BAG IVPB ×4 (03:18→20:57)
[2024-01-17] MEDS: CENTRAL LINE FLUSH 10 ML IV PUSH ×3 (03:19→20:58)
[2024-01-17] MEDS: HYDROmorphon 0.2MG/ML PCA(*CRX 6 MG/30 ML PCA.VIAL IV CONT ×2 (03:26→15:03)
[2024-01-17] MEDS: LEVOTHYROXINE SODIUM 50 MCG TABLET PO (05:42)
[2024-01-17 06:13] LABS: Anion Gap 4 mmol/L (8-16); Blood Urea Nitrogen 11 mg/dL (7-17); Calcium 8.3 mg/dL (8.4-10.2); Carbon Dioxide 28 mmol/L (22-30); Chloride 101 mmol/L (98-107); Estimated CRCL calculation 78 ml/min; Estimated Glomerular Filt Rate > 60; Glucose 191 mg/dL (65-110); Phosphorus 3.4 mg/dL (2.5-4.5); Potassium 4.1 mmol/L (3.4-5.0); Sodium 133 mmol/L (137-145)
[2024-01-17 07:20] LABS: Glucose Point of Care 178 mg/dl (65-105)
--- NOTE | 2024-01-17 08:58 | WPDPN ---
Progress Note: A&P Assessment and Plan (1) Septic thrombophlebitis: Code(s): I80.9 - Phlebitis and thrombophlebitis of unspecified site Status: Acute Assessment and Plan: Continue to treat with supportive management. She is on doses of Lovenox subQ. (2) Diverticulitis: Code(s): K57.92 - Diverticulitis of intestine, part unspecified, without perforation or abscess without bleeding Status: Acute Assessment and Plan: Continue IV antibiotics for now. Will repeat CT scan of abdomen pelvis tomorrow with IV and oral contrast. Will need to premedicate due to IV contrast allergy today. She did have a small bowel movement yesterday. She had another dose of milk of magnesia today. Decrease her MEASURING CLERK some today. Order some oral pain medications to be used p.r.n.. We will go ahead advance her to a low residual diet. Continue TPN for today and she is tolerating diet and go ahead weaned off tomorrow. Subjective Date/time seen: 01/17/24 08:58 Interval history: Patient slightly improved today. States she is able to tolerate full liquid diet. Had a small bowel movement yesterday of formed small stool. White blood cell count remains normal. No fever. Continues on TPN. Exam GI: Other: Abdomen is obese and soft. Nondistended. Minimal tenderness to palpation left lower quadrant the abdomen. No peritoneal signs. Objective Data Vital Signs Vital Signs: Vital Signs - 24 hr 01/16/24 09:35 01/16/24 12:00 01/16/24 16:00 Temperature Pulse Rate 62 59 L Respiratory Rate Blood Pressure Pulse Oximetry Oxygen Delivery Room Air 01/16/24 20:10 01/16/24 20:00 01/17/24 00:00 Temperature 36.4 C Pulse Rate 58 L 87 55 L Respiratory Rate 18 Blood Pressure 126/69 Pulse Oximetry 98 Oxygen Delivery 01/17/24 03:26 01/16/24 20:10 01/17/24 04:00 Temperature Pulse Rate 61 58 L Respiratory Rate 16 Blood Pressure Pulse Oximetry 98 Oxygen Delivery Room Air 01/17/24 05:50 Temperature 36.7 C Pulse Rate 60 Respiratory Rate 20 Blood Pressure 122/62 Pulse Oximetry 99 Oxygen Delivery Intake/Output Intake/Output: Intake & Output 01/14/24 01/15/24 01/16/2424 23:59 23:59 23:59 23:59 Intake Total 3703.125 4405.125 2843.125 80 Balance 3703.125 4405.125 2843.125 80 Meds/Results Medications: Active Medications Generic Name Dose Route Start Last Admin Trade Name Freq PRN Reason Stop Dose Admin Acetaminophen 1,000 mg 01/17/24 08:52 Acetaminophen 500 Mg Tablet PO Q6H PRN Mild Pain (1-3) or Fever Hydrocodone Bitart/Acetaminophen 1 tab 01/17/24 08:52 Hydrocodone/Acetaminophen (*Crx) 5-325 Mg Tablet PO Q4H PRN Pain Rated 4-6 Calcium Carbonate 200 mg 01/08/24 11:58 01/11/24 20:27 Calcium Carbonate (Tums) 500 Mg (200 Mg Elemental) PO 200 mg Q6H PRN Administration Indigestion Dextrose 12.5 gm 01/06/24 22:31 Dextrose 50% 25 Gm/50 Ml Syringe IV PUSH PRN PRN Hypoglycemia Protocol Diphenhydramine HCl 50 mg 01/06/24 19:46 01/16/24 21:47 Diphenhydramine Hcl Inj 50 Mg/Ml Vial IV PUSH 50 mg Q4H PRN Administration Itching Enoxaparin Sodium 120 mg 01/11/24 09:00 01/16/24 20:12 Enoxaparin 120 Mg/0.8 Ml Syringe SUB-Q 120 mg Q12HR BOY Administration Glucagon 1 mg 01/06/24 22:31 Glucagon For Inj 1 Mg Vial IM PRN PRN Hypoglycemia Protocol Glucose 15 gm 01/06/24 22:31 Glucose Oral Gel 15 Gm Of Glucse In 37.5 Gm Tube PO PRN PRN Hypoglycemia Protocol Hydromorphone HCl 0.5 mg 01/12/24 10:12 01/16/24 21:47 Hydromorphone Hcl Inj (*Crx) 1 Mg/Ml Syr IV PUSH 0.5 mg Q4H PRN Administration Pain Rated 7-10 Dextrose 1,000 mls @ 100 mls/hr 01/06/24 22:31 Dextrose 5% 1,000 Ml IVPB PRN PRN Hypoglycemia Protocol Piperacillin/Tazobactam/Dextrose 3.375 gm in 50 mls @ 100 mls/hr 01/10/24 15:00
[2024-01-17] MEDS: PANTOPRAZOLE 40 MG TABLET PO (09:29)
[2024-01-17] MEDS: MAGNESIUM HYDROXIDE SUSP 30 ML UDC 60 ML PO (09:30)
[2024-01-17] MEDS: ENOXAPARIN 120 MG/0.8 ML SYRINGE SUB-Q ×2 (09:30→20:57)
[2024-01-17] MEDS: ONDANSETRON INJ 4 MG/2 ML VIAL IV PUSH (09:35)
[2024-01-17 11:15] LABS: Glucose Point of Care 206 mg/dl (65-105)
[2024-01-17] MEDS: INSULIN ASPART (*BKC) 100 UNITS/ML SUB-Q ×2 (11:20→21:01)
--- NOTE | 2024-01-17 12:00 | P.PNIM_ITS ---
Progress Note: A&P Assessment and Plan (1) Sigmoid diverticulitis: Code(s): K57.32 - Diverticulitis of large intestine without perforation or abscess without bleeding Status: Acute Assessment and Plan: She was diagnosed with sigmoid diverticulitis several days ago and has been taking ciprofloxacin and metronidazole as an outpatient. * Continue antibiotics for diverticulitis to include ceftriaxone and metron idazole. * Symptoms improved. Advance diet. * Analgesics and antiemetics are available as needed. * Patient having increased pain overnight. Blueprint Cutter increased pain medications. See cross cover note. * 01/09 General surgery put patient on HIM SPECIALISTS for better pain control. * Repeat CT abdomen and pelvis showing septic thrombophlebitis of the inferior mesenteric vein and branches that drain that region of the sigmoid. Early multifocal abscess formation within the sigmoid mesentery is suspected. * General surgery changed antibiotics to Zosyn and gentamicin. Gentamicin added on due to the synergistic affect with penicillins on enterococci coverage. * TPN continued until tolerating oral intake * monitor phos/mag/BMP * de-escalate pain medication * encourage activity 01/14: * Bowel series with moderate amount of stool * reports gas no BM * MOM x 1 per surgery attempt to get bowels moving * continue TPN until we advance diet 01/15: * still no BM but reports gas * bowel regiment deferred to general surgery * continue to encourage activity and oral hydration as tolerated * TPN until advancing diet * need to wean pain management 01/16: * Small BM reported * advance to low residual diet * imaging tomorrow * de-escalate pain medication (2) Mesenteric vein thrombosis: Code(s): K55.069 - Acute infarction of intestine, part and extent unspecified Status: Acute Assessment and Plan: She was also diagnosed with mesenteric vein thrombosis however she did not have her apixaban filled for unclear reasons. * Patient started on heparin drip. * Lactic acid was normal and she is nontoxic in appearance. * Etiology of the thrombus is not entirely clear but may be related to inflammation from diverticulitis or prior gastric sleeve. * Surgery believes thrombus is from diverticulitis. * Lovenox BID 1mg/kg transition to eliquis at discharge. (3) Type 2 diabetes mellitus: Qualifiers: Diabetes mellitus complication status: without complication Diabetes mellitus laborer marine terminal insulin use: without penitentiary use Qualified Code(s): E11.9 - Type 2 diabetes mellitus without complications Code(s): E11.9 - Type 2 diabetes mellitus without complications Status: Chronic Assessment and Plan: * Accu-Cheks a.c. HS * sliding scale insulin * hold oral diabetic medications * resume patient's home long-acting * Hemoglobin A1c goal less than * Watch for hypoglycemia/hypoglycemic protocol ordered (4) Hypothyroidism (acquired): Code(s): E03.9 - Hypothyroidism, unspecified Status: Acute Assessment and Plan: * Stable * Resume levothyroxine Plan Code status: Full code per patient DVT prophylaxis: Lovenox full dose BID tranistion to PO Eliquis at discharge Stress ulcer prophylaxis: Protonix 40 daily PT/OT notes: ambulatory Disposition: Patient continues admission to the medical unit since unable to tolerate oral intake remains on TPN continuing IV antibiotics in the encouraged patient to increase activity and deescal
--- NOTE | 2024-01-17 12:00 | PM.IMPN ---
Progress Note: A&P Assessment and Plan (1) Sigmoid diverticulitis: Code(s): K57.32 - Diverticulitis of large intestine without perforation or abscess without bleeding Status: Acute Assessment and Plan: She was diagnosed with sigmoid diverticulitis several days ago and has been taking ciprofloxacin and metronidazole as an outpatient. Continue antibiotics for diverticulitis to include ceftriaxone and metronidazole. Symptoms improved. Advance diet. Analgesics and antiemetics are available as needed. Patient having increased pain overnight. Tank Refinisher increased pain medications. See cross cover note. 01/09 General surgery put patient on BOOK JOGGER for better pain control. Repeat CT abdomen and pelvis showing septic thrombophlebitis of the inferior mesenteric vein and branches that drain that region of the sigmoid. Early multifocal abscess formation within the sigmoid mesentery is suspected. General surgery changed antibiotics to Zosyn and gentamicin. Gentamicin added on due to the synergistic affect with penicillins on enterococci coverage. TPN continued until tolerating oral intake monitor phos/mag/BMP de-escalate pain medication encourage activity 01/14: Bowel series with moderate amount of stool reports gas no BM MOM x 1 per surgery attempt to get bowels moving continue TPN until we advance diet 01/15: still no BM but reports gas bowel regiment deferred to general surgery continue to encourage activity and oral hydration as tolerated TPN until advancing diet need to wean pain management 01/16: Small BM reported advance to low residual diet imaging tomorrow de-escalate pain medication (2) Mesenteric vein thrombosis: Code(s): K55.069 - Acute infarction of intestine, part and extent unspecified Status: Acute Assessment and Plan: She was also diagnosed with mesenteric vein thrombosis however she did not have her apixaban filled for unclear reasons. Patient started on heparin drip. Lactic acid was normal and she is nontoxic in appearance. Etiology of the thrombus is not entirely clear but may be related to inflammation from diverticulitis or prior gastric sleeve. Surgery believes thrombus is from diverticulitis. Lovenox BID 1mg/kg transition to eliquis at discharge. (3) Type 2 diabetes mellitus: Qualifiers: Diabetes mellitus complication status: without complication Diabetes mellitus [facility] insulin use: without exterminator helper use Qualified Code(s): E11.9 - Type 2 diabetes mellitus without complications Code(s): E11.9 - Type 2 diabetes mellitus without complications Status: Chronic Assessment and Plan: Accu-Cheks a.c. HS sliding scale insulin hold oral diabetic medications resume patient's home long-acting Hemoglobin A1c goal less than Watch for hypoglycemia/hypoglycemic protocol ordered (4) Hypothyroidism (acquired): Code(s): E03.9 - Hypothyroidism, unspecified Status: Acute Assessment and Plan: Stable Resume levothyroxine Plan Code status: Full code per patient DVT prophylaxis: Lovenox full dose BID tranistion to PO Eliquis at discharge Stress ulcer prophylaxis: Protonix 40 daily PT/OT notes: ambulatory Disposition: Patient continues admission to the medical unit since unable to tolerate oral intake remains on TPN continuing IV antibiotics in the encouraged patient to increase activity and deescalate pain medication. advance diet when tolerated will discharge to home when medically stable. Time Spent With Patient Time with patient: 15 - 25 minutes Subjective Date/time seen: 01/17/24 12:00 Interval history: (Per Medical Record) Chief Complaint: Back and abdominal pain. Narrative: This is a pleasant 63-year-old female with history of diverticulitis, gastric sleeve, gastroesophageal reflux disease, kidney stones, hypothyroidism and type 2 diabetes harsha
[2024-01-17 16:14] LABS: Glucose Point of Care 187 mg/dl (65-105)
[2024-01-17] MEDS: AMINO ACIDS 5%/D15W/E-LYTES/CA 2,000 ML with MULTIVITAMINS-12 INJ VIAL 1 2.5 ML, MULTIV... 40 ML IV CONT (16:46)
[2024-01-17] MEDS: FAT EMULSIONS IV 20% 250 ML 20.83 ML IVPB (16:58)
[2024-01-17 20:47] LABS: Glucose Point of Care 223 mg/dl (65-105)
[2024-01-17] MEDS: diphenhydrAMINE HCl INJ 50 MG/ML VIAL IV PUSH (20:57)
[2024-01-18] VITALS (9 sets, daily range): BP systolic 119–129; BP diastolic 53–61; PULSE 57–90; RESP 12–18; TEMP 36.1–36.6; O2SAT 91–96
[2024-01-18] MEDS: predniSONE 40 MG, predniSONE 10 MG 50 MG PO ×3 (00:32→13:41)
--- NOTE | 2024-01-18 03:35 | PC.NURSE ---
Daylight Savings Time For Daylight Savings Time Ending in the Fall - Clocks are moved back. For Daylight Savings Time Beginning in the Spring - Clocks are moved ahead. For [facility], the time of change occurs at 0200 hrs. Time is taken from the seismic observer. This entry on the patient's chart recognizes the change in time reflected during documentation. Example: 2 entries for vital signs may be charted for 0200 hrs.
[2024-01-18] MEDS: PIPERACILLN/TAZ 3.375GM/NS50ML 3.375 GM/50 ML BAG IVPB ×3 (03:49→17:00)
[2024-01-18] MEDS: LEVOTHYROXINE SODIUM 50 MCG TABLET PO (05:58)
[2024-01-18] MEDS: CENTRAL LINE FLUSH 10 ML IV PUSH ×3 (05:58→20:24)
[2024-01-18 06:27] LABS: Anion Gap 3 mmol/L (8-16); Blood Urea Nitrogen 14 mg/dL (7-17); Calcium 8.6 mg/dL (8.4-10.2); Carbon Dioxide 28 mmol/L (22-30); Chloride 100 mmol/L (98-107); Estimated CRCL calculation 78 ml/min; Estimated Glomerular Filt Rate > 60; Glucose 263 mg/dL (65-110); Phosphorus 3.2 mg/dL (2.5-4.5); Potassium 5.2 mmol/L (3.4-5.0); Sodium 131 mmol/L (137-145)
[2024-01-18 07:28] LABS: Glucose Point of Care 302 mg/dl (65-105)
[2024-01-18] MEDS: ENOXAPARIN 120 MG/0.8 ML SYRINGE SUB-Q ×2 (08:36→20:22)
[2024-01-18] MEDS: INSULIN ASPART (*BKC) 100 UNITS/ML SUB-Q ×4 (08:36→20:23)
[2024-01-18] MEDS: PANTOPRAZOLE 40 MG TABLET PO (08:37)
[2024-01-18 11:20] LABS: Glucose Point of Care 385 mg/dl (65-105)
[2024-01-18] MEDS: oxyCODONE HCL (*CRX) 5 MG TAB IR PO (11:26)
--- NOTE | 2024-01-18 13:33 | P.PNIM_ITS ---
Progress Note: A&P Assessment and Plan (1) Sigmoid diverticulitis: Code(s): K57.32 - Diverticulitis of large intestine without perforation or abscess without bleeding Status: Acute Assessment and Plan: She was diagnosed with sigmoid diverticulitis several days ago and has been taking ciprofloxacin and metronidazole as an outpatient. * Continue antibiotics for diverticulitis to include ceftriaxone and metron idazole. * Symptoms improved. Advance diet. * Analgesics and antiemetics are available as needed. * Patient having increased pain overnight. Land Checker increased pain medications. See cross cover note. * 01/09 General surgery put patient on SHIP PAINTER HELPER for better pain control. * Repeat CT abdomen and pelvis showing septic thrombophlebitis of the inferior mesenteric vein and branches that drain that region of the sigmoid. Early multifocal abscess formation within the sigmoid mesentery is suspected. * General surgery changed antibiotics to Zosyn and gentamicin. Gentamicin added on due to the synergistic affect with penicillins on enterococci coverage. * TPN continued until tolerating oral intake * monitor phos/mag/BMP * de-escalate pain medication * encourage activity 01/14: * Bowel series with moderate amount of stool * reports gas no BM * MOM x 1 per surgery attempt to get bowels moving * continue TPN until we advance diet 01/15: * still no BM but reports gas * bowel regiment deferred to general surgery * continue to encourage activity and oral hydration as tolerated * TPN until advancing diet * need to wean pain management 01/16: * Small BM reported * advance to low residual diet * imaging tomorrow * de-escalate pain medication 01/17: * BM x 3 * CT w/ con today following prep * tolerating PO * stopping TPN * stopped SHIP PAINTER HELPER pain controlled will continue to de-escalate (2) Mesenteric vein thrombosis: Code(s): K55.069 - Acute infarction of intestine, part and extent unspecified Status: Acute Assessment and Plan: She was also diagnosed with mesenteric vein thrombosis however she did not have her apixaban filled for unclear reasons. * Patient started on heparin drip. * Lactic acid was normal and she is nontoxic in appearance. * Etiology of the thrombus is not entirely clear but may be related to inflammation from diverticulitis or prior gastric sleeve. * Surgery believes thrombus is from diverticulitis. * Lovenox BID 1mg/kg transition to eliquis at discharge. (3) Type 2 diabetes mellitus: Qualifiers: Diabetes mellitus custodial insulin use: without termite control service representative use Diabetes mellitus complication status: without complication Qualified Code(s): E11.9 - Type 2 diabetes mellitus without complications Code(s): E11.9 - Type 2 diabetes mellitus without complications Status: Chronic Assessment and Plan: * Accu-Cheks a.c. HS * sliding scale insulin * hold oral diabetic medications * resume patient's home long-acting * Hemoglobin A1c goal less than * Watch for hypoglycemia/hypoglycemic protocol ordered 01/17: * hyperglycemia secondary to steriod dosing for ct w/contrast * SS increased to high for better coverage (4) Hypothyroidism (acquired): Code(s): E03.9 - Hypothyroidism, unspecified Status: Acute Assessment and Plan: * Stable * Resume levothyroxine Plan Code status: Full code per patient DVT prophylaxis: Lovenox full dose BID tranistion to PO Eliquis at discharge Stre
--- NOTE | 2024-01-18 13:33 | PM.IMPN ---
Progress Note: A&P Assessment and Plan (1) Sigmoid diverticulitis: Code(s): K57.32 - Diverticulitis of large intestine without perforation or abscess without bleeding Status: Acute Assessment and Plan: She was diagnosed with sigmoid diverticulitis several days ago and has been taking ciprofloxacin and metronidazole as an outpatient. Continue antibiotics for diverticulitis to include ceftriaxone and metronidazole. Symptoms improved. Advance diet. Analgesics and antiemetics are available as needed. Patient having increased pain overnight. Client Services Assistant increased pain medications. See cross cover note. 01/09 General surgery put patient on PRE PRESS MANAGER for better pain control. Repeat CT abdomen and pelvis showing septic thrombophlebitis of the inferior mesenteric vein and branches that drain that region of the sigmoid. Early multifocal abscess formation within the sigmoid mesentery is suspected. General surgery changed antibiotics to Zosyn and gentamicin. Gentamicin added on due to the synergistic affect with penicillins on enterococci coverage. TPN continued until tolerating oral intake monitor phos/mag/BMP de-escalate pain medication encourage activity 01/14: Bowel series with moderate amount of stool reports gas no BM MOM x 1 per surgery attempt to get bowels moving continue TPN until we advance diet 01/15: still no BM but reports gas bowel regiment deferred to general surgery continue to encourage activity and oral hydration as tolerated TPN until advancing diet need to wean pain management 01/16: Small BM reported advance to low residual diet imaging tomorrow de-escalate pain medication 01/17: BM x 3 CT w/ con today following prep tolerating PO stopping TPN stopped PRE PRESS MANAGER pain controlled will continue to de-escalate (2) Mesenteric vein thrombosis: Code(s): K55.069 - Acute infarction of intestine, part and extent unspecified Status: Acute Assessment and Plan: She was also diagnosed with mesenteric vein thrombosis however she did not have her apixaban filled for unclear reasons. Patient started on heparin drip. Lactic acid was normal and she is nontoxic in appearance. Etiology of the thrombus is not entirely clear but may be related to inflammation from diverticulitis or prior gastric sleeve. Surgery believes thrombus is from diverticulitis. Lovenox BID 1mg/kg transition to eliquis at discharge. (3) Type 2 diabetes mellitus: Qualifiers: Diabetes mellitus local company intermodal truck driver insulin use: without local company intermodal truck driver use Diabetes mellitus complication status: without complication Qualified Code(s): E11.9 - Type 2 diabetes mellitus without complications Code(s): E11.9 - Type 2 diabetes mellitus without complications Status: Chronic Assessment and Plan: Accu-Cheks a.c. HS sliding scale insulin hold oral diabetic medications resume patient's home long-acting Hemoglobin A1c goal less than Watch for hypoglycemia/hypoglycemic protocol ordered 01/17: hyperglycemia secondary to steriod dosing for ct w/contrast SS increased to high for better coverage (4) Hypothyroidism (acquired): Code(s): E03.9 - Hypothyroidism, unspecified Status: Acute Assessment and Plan: Stable Resume levothyroxine Plan Code status: Full code per patient DVT prophylaxis: Lovenox full dose BID tranistion to PO Eliquis at discharge Stress ulcer prophylaxis: Protonix 40 daily PT/OT notes: ambulatory Disposition: Patient continues admission to the medical unit since unable to tolerate oral intake remains on TPN continuing IV antibiotics in the encouraged patient to increase activity and deescalate pain medication. advance diet when tolerated will discharge to home when medically stable. Time Spent With Patient Time with patient: 25 - 35 minutes Subjective Date/time seen: 01/18/24 13:33 Interval history:
[2024-01-18] MEDS: diphenhydrAMINE HCl CAP 25 MG CAPSULE 50 MG PO (13:40)
--- NOTE | 2024-01-18 13:43 | WPDPN ---
Progress Note: A&P Assessment and Plan (1) Septic thrombophlebitis: Code(s): I80.9 - Phlebitis and thrombophlebitis of unspecified site Status: Acute Assessment and Plan: Continue IV antibiotics for now. Will likely switch over to oral antibiotics tomorrow if CT scan done today reveals no abscess or worsening diverticulitis. Can switch over to Eliquis or Xarelto and stop the Lovenox. (2) Sigmoid diverticulitis: Code(s): K57.32 - Diverticulitis of large intestine without perforation or abscess without bleeding Status: Acute Assessment and Plan: Continue low-fiber diet for now. Repeat CT scan abdomen pelvis with oral and IV contrast to be done today. Go ahead wean the TPN off today 6 clinically she is doing well. Maybe home in next 1 to 2 days if she continues to improve. Will stop the Dilaudid LEARNING AND DEVELOPMENT SPECIALIST. Rely primarily on oral narcotic pain medications with backup bolus of Dilaudid if needed for breakthrough. Will also go ahead and add MiraLax daily for now. Subjective Date/time seen: 01/18/24 13:43 Interval history: Patient feeling a little better today. Less abdominal pain. She had 2 bowel movement yesterday which were a little more substantial than the day before. She stated that after having the bowel movement she did feel better and had less pain. Tolerating a low-fiber diet. Continues to have a normal white blood cell count. Exam GI: Other: Abdomen is soft and obese. Mildly tender to palpation in suprapubic region. No guarding or generalized peritoneal signs. Objective Data Vital Signs Vital Signs: Vital Signs - 24 hr 01/17/24 13:59 01/17/24 14:04 01/17/24 15:03 Temperature 36.1 C L 36.1 C L Pulse Rate 65 65 Respiratory Rate 18 18 15 Blood Pressure 142/50 H 142/50 H Pulse Oximetry 99 99 Oxygen Delivery 01/17/24 16:00 01/17/24 21:22 01/17/24 20:00 Temperature 36.1 C L Pulse Rate 57 L 59 L 60 Respiratory Rate 12 Blood Pressure 113/55 L Pulse Oximetry 100 Oxygen Delivery 01/17/24 20:00 01/18/24 00:00 01/18/24 04:00 Temperature Pulse Rate 58 L 63 Respiratory Rate Blood Pressure Pulse Oximetry Oxygen Delivery Room Air 01/18/24 05:40 01/18/24 08:45 Temperature 36.6 C Pulse Rate 61 59 L Respiratory Rate 12 Blood Pressure 124/53 L Pulse Oximetry 91 Oxygen Delivery Intake/Output Intake/Output: Intake & Output 01/15/24 01/16/24 01/17/24 01/19/24 23:59 23:59 23:59 00:59 Intake Total 4405.125 2843.125 2696 1298 Balance 4405.125 2843.125 2696 1298 Meds/Results Medications: Active Medications Generic Name Dose Route Start Last Admin Trade Name Freq PRN Reason Stop Dose Admin Acetaminophen 1,000 mg 01/17/24 08:52 Acetaminophen 500 Mg Tablet PO Q6H PRN Mild Pain (1-3) or Fever Calcium Carbonate 200 mg 01/08/24 11:58 01/11/24 20:27 Calcium Carbonate (Tums) 500 Mg (200 Mg Elemental) PO 200 mg Q6H PRN Administration Indigestion Dextrose 12.5 gm 01/06/24 22:31 Dextrose 50% 25 Gm/50 Ml Syringe IV PUSH PRN PRN Hypoglycemia Protocol Diphenhydramine HCl 50 mg 01/06/24 19:46 01/17/24 20:57 Diphenhydramine Hcl Inj 50 Mg/Ml Vial IV PUSH 50 mg Q4H PRN Administration Itching Enoxaparin Sodium 120 mg 01/11/24 09:00 01/18/24 08:36 Enoxaparin 120 Mg/0.8 Ml Syringe SUB-Q 120 mg Q12HR BOY Administration Glucagon 1 mg 01/06/24 22:31 Glucagon For Inj 1 Mg Vial IM PRN PRN Hypoglycemia Protocol Glucose 15 gm 01/06/24 22:31 Glucose Oral Gel 15 Gm Of Glucse In 37.5 Gm Tube PO PRN PRN Hypoglycemia Protocol Hydromorphone HCl 1 mg 01/18/24 11:57 Hydromorphone Hcl Inj (*Crx) 1 Mg/Ml Syr IV PUSH Q3H PRN Pain Rated 7-10 Dextrose 1,000 mls @ 100 mls/hr 01/06/24 22:31 Dextrose 5% 1,000 Ml IVPB PRN PRN Hypoglycemia Protocol Piperacillin/Tazobacta
[2024-01-18 16:20] LABS: Glucose Point of Care 262 mg/dl (65-105)
[2024-01-18] MEDS: oxyCODONE HCL (*CRX) 5 MG TAB IR 10 MG PO (18:46)
[2024-01-18 19:07] LABS: Triglycerides 115 mg/dL (<150)
[2024-01-18] MEDS: diphenhydrAMINE HCl INJ 50 MG/ML VIAL IV PUSH (20:38)
[2024-01-18 20:53] LABS: Glucose Point of Care 295 mg/dl (65-105)
[2024-01-19] VITALS (8 sets, daily range): BP systolic 114–130; BP diastolic 50–71; PULSE 53–62; RESP 16; TEMP 36.1–36.4; O2SAT 97–99
[2024-01-19] MEDS: PIPERACILLN/TAZ 3.375GM/NS50ML 3.375 GM/50 ML BAG IVPB ×4 (00:16→17:50)
[2024-01-19] MEDS: oxyCODONE HCL (*CRX) 5 MG TAB IR 10 MG PO ×2 (04:28→08:32)
[2024-01-19] MEDS: LEVOTHYROXINE SODIUM 50 MCG TABLET PO (04:42)
[2024-01-19 04:50] LABS: Basophils Percent Auto 0.1 % (0.2-1.2); Hematocrit 39.8 % (37.0-47.0); Hemoglobin 12.9 g/dL (12.0-15.0); Immature Granulocyte Absolute 0.07 K/mm3 (0.00-0.031); Immature Granulocyte Percent A 0.6 % (0-0.5); Lymphocytes Absolute Auto 1.31 K/mm3 (0.9-3.2); Mean Corpuscular HGB Conc 32.4 g/dl (32-36); Mean Corpuscular Hemoglobin 31.7 pg (26-34); Mean Corpuscular Volume 97.8 fl (80-100); Mean Platelet Volume 10.4 fl (7.4-10.4); Monocytes Absolute Auto 0.7 K/mm3 (0.1-0.6); Monocytes Percent Auto 6.2 % (2.6-8.5); Neutrophils Absolute Auto 8.8 K/mm3 (1.3-6.7); Neutrophils Percent Auto 81.1 % (45.5-73.1); Platelet Count Result 235 k/mm3 (150-375); Red Blood Count 4.07 M/mm3 (4.2-5.4); Red Cell Distribution Width 14.3 % (11.5-14.5); White Blood Count 10.9 K/mm3 (4.5-10.0)
[2024-01-19] MEDS: CENTRAL LINE FLUSH 10 ML IV PUSH ×3 (04:50→22:12)
[2024-01-19 05:05] LABS: Alanine Aminotransferase 26 U/L (6-35); Albumin Level 3.6 g/dL (3.5-5.1); Alkaline Phosphatase 111 U/L (38-126); Anion Gap 4 mmol/L (8-16); Aspartate Amino Transferase 15 U/L (14-36); Bilirubin,Total 0.7 mg/dL (0.2-1.3); Blood Urea Nitrogen 17 mg/dL (7-17); Carbon Dioxide 27 mmol/L (22-30); Chloride 102 mmol/L (98-107); Estimated CRCL calculation 78 ml/min; Estimated Glomerular Filt Rate > 60; Glucose 228 mg/dL (65-110); Magnesium 2.5 mg/dL (1.6-2.3); Phosphorus 3.6 mg/dL (2.5-4.5); Potassium 4.7 mmol/L (3.4-5.0); Sodium 133 mmol/L (137-145)
[2024-01-19 05:13] LABS: Prothrombin Time 13.7 Seconds (11.1-14.7)
[2024-01-19 05:14] LABS: Partial Thromboplastin Time 39.1 SECONDS (22.3-36.8)
[2024-01-19 06:55] LABS: Transferrin 212 mg/dL (206-381)
[2024-01-19 08:02] LABS: Glucose Point of Care 205 mg/dl (65-105)
[2024-01-19] MEDS: INSULIN ASPART (*BKC) 100 UNITS/ML SUB-Q ×4 (08:32→20:56)
[2024-01-19] MEDS: ENOXAPARIN 120 MG/0.8 ML SYRINGE SUB-Q ×2 (08:33→20:57)
[2024-01-19] MEDS: predniSONE 40 MG, predniSONE 10 MG 50 MG PO (08:33)
[2024-01-19] MEDS: PANTOPRAZOLE 40 MG TABLET PO (08:33)
[2024-01-19] MEDS: ONDANSETRON INJ 4 MG/2 ML VIAL IV PUSH (08:34)
[2024-01-19 12:05] LABS: Glucose Point of Care 227 mg/dl (65-105)
--- NOTE | 2024-01-19 13:45 | PM.PNGS ---
Progress Note: A&P Assessment and Plan (1) Sigmoid diverticulitis: Code(s): K57.32 - Diverticulitis of large intestine without perforation or abscess without bleeding Status: Acute Assessment and Plan: Patient slowly improved through the weekend. She has been taken off TPN and is now tolerating a low fiber diet well today. Her bowels continue to move and her abdominal pain is improving. Continue Miralax daily. Her abdominal pain is being controlled with oral analgesics. Her repeat CT scan of the abdomen and pelvis yesterday did show sigmoid diverticulitis with microperforation, no organized abscess. Her WBC count also went up to 10,900. Will continue IV antibiotics yet today and plan to switch to oral antibiotics on discharge. She could possibly be discharged tomorrow if she continues to do well. (2) Septic thrombophlebitis: Code(s): I80.9 - Phlebitis and thrombophlebitis of unspecified site Status: Acute Assessment and Plan: Continue IV antibiotics for now. Can switch over to Eliquis or Xarelto and stop the Lovenox. Plan I have discussed the patient's case and plan of care with Dr. Zamora. Subjective Subjective Date/Time Seen: 01/19/24 13:45 Patient reports: no new complaints, feels better, pain is less, tolerating a regular diet, flatus, bowel movement and afebrile Interval history: Chart reviewed since last seen. Patient continues to slowly improve. Her abdominal pain has been controlled with only oral analgesics since yesterday. She has not required any of the IV Dilaudid overnight. She had some nausea and abdominal cramping after drinking the oral contrast yesterday, but this has resolved. She reports feeling bloated across her lower abdomen and having some mild pain in that area, but this has continued to improve. She has had multiple bowel movements with her last 1 this morning. She is tolerating solids and eating well so far today. No other complaints at this time. She is afebrile, but her white blood cell count is noted to have gone up today to 10.9 K. Exam Const: General: comfortable and no acute distress Orientation/consciousness: patient oriented x3 GI: Inspection: non-distended and obesity GI Palp: Yes Soft to palpation, Yes Tenderness to palpation present (GI) (tenderness across her lower abdomen), No Guarding due to palpation present (GI) (no peritoneal signs) and No Rebound tenderness present Auscultation: normal bowel sounds Objective Data Vital Signs Vital Signs: Vital Signs - 24 hr 01/18/24 13:52 01/18/24 16:00 01/18/24 21:42 Temperature 97.7 F 97.0 F L Pulse Rate 74 57 L 83 Respiratory Rate 18 18 Blood Pressure 129/61 119/56 L Pulse Oximetry 95 96 01/18/24 20:00 01/19/24 00:00 01/19/24 04:00 Temperature Pulse Rate 90 60 58 L Respiratory Rate Blood Pressure Pulse Oximetry 01/19/24 05:55 Temperature 97.0 F L Pulse Rate 60 Respiratory Rate 16 Blood Pressure 130/71 Pulse Oximetry 98 Intake/Output Intake/Output: Intake & Output 01/16/24 01/17/24 01/18/24 01/19/24 22:59 22:59 23:59 23:59 Intake Total 450 Balance 450 Meds/Results Medications: Active Medications Generic Name Dose Route Start Last Admin Trade Name Freq PRN Reason Stop Dose Admin Acetaminophen 1,000 mg 01/17/24 08:52 Acetaminophen 500 Mg Tablet PO Q6H PRN Mild Pain (1-3) or Fever Calcium Carbonate 200 mg 01/08/24 11:58 01/11/24 20:27 Calcium Carbonate (Tums) 500 Mg (200 Mg Elemental) PO 200 mg Q6H PRN Administration Indigestion Dextrose 12.5 gm 01/06/24 22:31 Dextrose 50% 25 Gm/50 Ml Syringe IV PUSH PRN PRN Hypoglycemia Protocol Diphenhydramine HCl 50 mg 01/06/24 19:46 01/18/24 20:38 Diphenhydramine Hcl Inj 50 Mg/Ml Vial IV PUSH 50 mg Q4H PRN Administration Itching Enoxaparin Sodium 120 mg 01/11/24 09:00 01/19/24 08:33 Enoxaparin 120 Mg/0.8 Ml Syringe SUB-Q 120 mg
--- NOTE | 2024-01-19 14:17 | P.PNIM_ITS ---
Progress Note: A&P Assessment and Plan (1) Sigmoid diverticulitis: Code(s): K57.32 - Diverticulitis of large intestine without perforation or abscess without bleeding Status: Acute Assessment and Plan: She was diagnosed with sigmoid diverticulitis several days ago and has been taking ciprofloxacin and metronidazole as an outpatient. * Continue antibiotics for diverticulitis to include ceftriaxone and metron idazole. * Symptoms improved. Advance diet. * Analgesics and antiemetics are available as needed. * Patient having increased pain overnight. Knitting Machine Fixer Head increased pain medications. See cross cover note. * 01/09 General surgery put patient on WALNUT DEHYDRATOR OPERATOR for better pain control. * Repeat CT abdomen and pelvis showing septic thrombophlebitis of the inferior mesenteric vein and branches that drain that region of the sigmoid. Early multifocal abscess formation within the sigmoid mesentery is suspected. * General surgery changed antibiotics to Zosyn and gentamicin. Gentamicin added on due to the synergistic affect with penicillins on enterococci coverage. * TPN continued until tolerating oral intake * monitor phos/mag/BMP * de-escalate pain medication * encourage activity 01/14: * Bowel series with moderate amount of stool * reports gas no BM * MOM x 1 per surgery attempt to get bowels moving * continue TPN until we advance diet 01/15: * still no BM but reports gas * bowel regiment deferred to general surgery * continue to encourage activity and oral hydration as tolerated * TPN until advancing diet * need to wean pain management 01/16: * Small BM reported * advance to low residual diet * imaging tomorrow * de-escalate pain medication 01/17: * BM x 3 * CT w/ con today following prep * tolerating PO * stopping TPN * stopped WALNUT DEHYDRATOR OPERATOR pain controlled will continue to de-escalate (2) Mesenteric vein thrombosis: Code(s): K55.069 - Acute infarction of intestine, part and extent unspecified Status: Acute Assessment and Plan: She was also diagnosed with mesenteric vein thrombosis however she did not have her apixaban filled for unclear reasons. * Patient started on heparin drip. * Lactic acid was normal and she is nontoxic in appearance. * Etiology of the thrombus is not entirely clear but may be related to inflammation from diverticulitis or prior gastric sleeve. * Surgery believes thrombus is from diverticulitis. * Lovenox BID 1mg/kg transition to eliquis at discharge. (3) Type 2 diabetes mellitus: Qualifiers: Diabetes mellitus alf insulin use: without salvage determiner use Diabetes mellitus complication status: without complication Qualified Code(s): E11.9 - Type 2 diabetes mellitus without complications Code(s): E11.9 - Type 2 diabetes mellitus without complications Status: Chronic Assessment and Plan: * Accu-Cheks a.c. HS * sliding scale insulin * hold oral diabetic medications * resume patient's home long-acting * Hemoglobin A1c goal less than * Watch for hypoglycemia/hypoglycemic protocol ordered 01/17: * hyperglycemia secondary to steriod dosing for ct w/contrast * SS increased to high for better coverage (4) Hypothyroidism (acquired): Code(s): E03.9 - Hypothyroidism, unspecified Status: Acute Assessment and Plan: * Stable * Resume levothyroxine Plan Code status: Full code per patient DVT prophylaxis: Lovenox full dose BID tranistion to PO Eliquis at discharge Stre
--- NOTE | 2024-01-19 14:17 | PM.IMPN ---
Progress Note: A&P Assessment and Plan (1) Sigmoid diverticulitis: Code(s): K57.32 - Diverticulitis of large intestine without perforation or abscess without bleeding Status: Acute Assessment and Plan: She was diagnosed with sigmoid diverticulitis several days ago and has been taking ciprofloxacin and metronidazole as an outpatient. Continue antibiotics for diverticulitis to include ceftriaxone and metronidazole. Symptoms improved. Advance diet. Analgesics and antiemetics are available as needed. Patient having increased pain overnight. Planting Supervisor increased pain medications. See cross cover note. 01/09 General surgery put patient on INDUSTRIAL CONVEYOR BELT REPAIRER for better pain control. Repeat CT abdomen and pelvis showing septic thrombophlebitis of the inferior mesenteric vein and branches that drain that region of the sigmoid. Early multifocal abscess formation within the sigmoid mesentery is suspected. General surgery changed antibiotics to Zosyn and gentamicin. Gentamicin added on due to the synergistic affect with penicillins on enterococci coverage. TPN continued until tolerating oral intake monitor phos/mag/BMP de-escalate pain medication encourage activity 01/14: Bowel series with moderate amount of stool reports gas no BM MOM x 1 per surgery attempt to get bowels moving continue TPN until we advance diet 01/15: still no BM but reports gas bowel regiment deferred to general surgery continue to encourage activity and oral hydration as tolerated TPN until advancing diet need to wean pain management 01/16: Small BM reported advance to low residual diet imaging tomorrow de-escalate pain medication 01/17: BM x 3 CT w/ con today following prep tolerating PO stopping TPN stopped INDUSTRIAL CONVEYOR BELT REPAIRER pain controlled will continue to de-escalate (2) Mesenteric vein thrombosis: Code(s): K55.069 - Acute infarction of intestine, part and extent unspecified Status: Acute Assessment and Plan: She was also diagnosed with mesenteric vein thrombosis however she did not have her apixaban filled for unclear reasons. Patient started on heparin drip. Lactic acid was normal and she is nontoxic in appearance. Etiology of the thrombus is not entirely clear but may be related to inflammation from diverticulitis or prior gastric sleeve. Surgery believes thrombus is from diverticulitis. Lovenox BID 1mg/kg transition to eliquis at discharge. (3) Type 2 diabetes mellitus: Qualifiers: Diabetes mellitus terminal gauger supervisor insulin use: without terminal gauger supervisor use Diabetes mellitus complication status: without complication Qualified Code(s): E11.9 - Type 2 diabetes mellitus without complications Code(s): E11.9 - Type 2 diabetes mellitus without complications Status: Chronic Assessment and Plan: Accu-Cheks a.c. HS sliding scale insulin hold oral diabetic medications resume patient's home long-acting Hemoglobin A1c goal less than Watch for hypoglycemia/hypoglycemic protocol ordered 01/17: hyperglycemia secondary to steriod dosing for ct w/contrast SS increased to high for better coverage (4) Hypothyroidism (acquired): Code(s): E03.9 - Hypothyroidism, unspecified Status: Acute Assessment and Plan: Stable Resume levothyroxine Plan Code status: Full code per patient DVT prophylaxis: Lovenox full dose BID tranistion to PO Eliquis at discharge Stress ulcer prophylaxis: Protonix 40 daily PT/OT notes: ambulatory Disposition: Patient continues admission to the medical unit since unable to tolerate oral intake remains on TPN continuing IV antibiotics in the encouraged patient to increase activity and deescalate pain medication. advance diet when tolerated will discharge to home when medically stable. Time Spent With Patient Time with patient: 15 - 25 minutes Subjective Date/time seen: 01/19/24 14:17 Interval history:
[2024-01-19] MEDS: oxyCODONE HCL (*CRX) 5 MG TAB IR PO ×2 (15:38→22:11)
[2024-01-19 16:33] LABS: Glucose Point of Care 267 mg/dl (65-105)
[2024-01-19 21:09] LABS: Glucose Point of Care 233 mg/dl (65-105)
[2024-01-19] MEDS: diphenhydrAMINE HCl INJ 50 MG/ML VIAL IV PUSH (22:12)
[2024-01-20] MEDS: PIPERACILLN/TAZ 3.375GM/NS50ML 3.375 GM/50 ML BAG IVPB ×3 (00:45→12:00)
[2024-01-20] MEDS: oxyCODONE HCL (*CRX) 5 MG TAB IR 10 MG PO ×2 (03:23→08:16)
[2024-01-20 06:00] VITALS: BP 111/57; PULSE 54; RESP 14; TEMP 36.1; O2SAT 97
[2024-01-20] MEDS: CENTRAL LINE FLUSH 20 ML IV PUSH (06:03)
[2024-01-20] MEDS: CENTRAL LINE FLUSH 10 ML IV PUSH ×3 (06:03→20:42)
[2024-01-20] MEDS: LEVOTHYROXINE SODIUM 50 MCG TABLET PO (06:15)
[2024-01-20 06:50] LABS: Hematocrit 39.7 % (37.0-47.0); Hemoglobin 12.6 g/dL (12.0-15.0); Mean Corpuscular HGB Conc 31.7 g/dl (32-36); Mean Corpuscular Volume 97.8 fl (80-100); Mean Platelet Volume 10.7 fl (7.4-10.4); Platelet Count Result 215 k/mm3 (150-375); Red Blood Count 4.06 M/mm3 (4.2-5.4); Red Cell Distribution Width 14.6 % (11.5-14.5); White Blood Count 7.8 K/mm3 (4.5-10.0)
[2024-01-20 07:04] LABS: Alanine Aminotransferase 30 U/L (6-35); Albumin Level 3.7 g/dL (3.5-5.1); Alkaline Phosphatase 97 U/L (38-126); Anion Gap 6 mmol/L (8-16); Aspartate Amino Transferase 15 U/L (14-36); Bilirubin,Total 0.7 mg/dL (0.2-1.3); Blood Urea Nitrogen 21 mg/dL (7-17); Carbon Dioxide 28 mmol/L (22-30); Chloride 103 mmol/L (98-107); Estimated CRCL calculation 64 ml/min; Estimated Glomerular Filt Rate 56; Glucose 114 mg/dL (65-110); Phosphorus 4.1 mg/dL (2.5-4.5); Potassium 3.8 mmol/L (3.4-5.0); Sodium 137 mmol/L (137-145)
[2024-01-20 08:07] LABS: Glucose Point of Care 160 mg/dl (65-105)
[2024-01-20] MEDS: predniSONE 40 MG, predniSONE 10 MG 50 MG PO (08:17)
[2024-01-20] MEDS: PANTOPRAZOLE 40 MG TABLET PO (08:18)
[2024-01-20] MEDS: ENOXAPARIN 120 MG/0.8 ML SYRINGE SUB-Q (08:23)
--- NOTE | 2024-01-20 10:33 | PCNFU ---
Nutrition Follow-Up Complete: Inadequate oral intake related to diverticulitis, pain, loss of appetite as evidenced by MD consult, need for partial TPN Goal:Meet estimated needs Pt current nutrition is Low fiber, Ensure Enlive TID. Nutrition recommendation: continue with current plan of care. Last recorded weight is 107.1 kg. Bowel Motility: +BM 01/18 Labs Reviewed: GFR:56, BUN:21 Meds Noted: lovenox, novolog, protonix Skin: no skin issues noted Additional Notes: TPN d/c'd, pt advanced to a low fiber diet. Intake 75-100% and tolerating well. Possible d/c. Encourage good intake of meals and supplements. Agree with diet orders Monitoring intake, weights, labs, plan of care follow up in 5 days.
[2024-01-20 11:31] LABS: Glucose Point of Care 383 mg/dl (65-105)
[2024-01-20] MEDS: oxyCODONE HCL (*CRX) 5 MG TAB IR PO ×3 (11:59→22:37)
[2024-01-20] MEDS: DICYCLOMINE HCL 10 MG CAPSULE 20 MG PO ×2 (12:00→17:44)
[2024-01-20] MEDS: INSULIN ASPART (*BKC) 100 UNITS/ML SUB-Q ×3 (12:13→20:40)
--- NOTE | 2024-01-20 12:18 | PM.PNGS ---
Progress Note: A&P Assessment and Plan (1) Sigmoid diverticulitis: Code(s): K57.32 - Diverticulitis of large intestine without perforation or abscess without bleeding Status: Acute Assessment and Plan: She is complaining of some abdominal cramping today, but overall has continued to improve. Her WBC count was normal today. She is afebrile. Will switch her to oral antibiotics with Augmentin 875-125 mg BID and metronidazole 500 mg Q8H. Miralax today was held as she had about 5 BMs yesterday and 3 already this morning. Will add dicyclomine to see if this will help her cramping. If she continues to improve, then hopefully she can be discharged tomorrow on oral antibiotics. (2) Septic thrombophlebitis: Code(s): I80.9 - Phlebitis and thrombophlebitis of unspecified site Status: Acute Assessment and Plan: Will switch her over to oral antibiotics today. Discussed with the Hospitalist that she can be transitioned from Lovenox to oral anticoagulation. Plan I have discussed the patient's case and plan of care with Dr. Zamora. Subjective Subjective Date/Time Seen: 01/20/24 11:18 Patient reports: flatus, bowel movement and afebrile Interval history: Patient reports having more generalized cramping abdominal pain today. The oxycodone has not been helping her pain. She feels she has more cramping leading up to a bowel movement, but it does not improve after she moves her bowels. This has been constant since yesterday afternoon. She also still feels bloated today, but no better or worse than yesterday. No nausea or vomiting. She did not eat much for dinner last night due to the cramping pain. WBC normal today. Exam Const: General: comfortable and no acute distress GI: Inspection: Pannus present and obesity GI Palp: Yes Soft to palpation, Yes Tenderness to palpation present (GI) (suprapubic tenderness), No Guarding due to palpation present (GI) and No Rebound tenderness present Auscultation: normal bowel sounds Objective Data Vital Signs Vital Signs: Vital Signs - 24 hr 01/19/24 16:00 01/19/24 14:00 01/19/24 22:00 Temperature 97.5 F L 96.9 F L Pulse Rate 62 59 L 53 L Respiratory Rate 16 16 Blood Pressure 114/58 L 130/50 L Pulse Oximetry 97 99 Oxygen Delivery 01/20/24 06:00 01/20/24 08:00 Temperature 97.0 F L Pulse Rate 54 L Respiratory Rate 14 Blood Pressure 111/57 L Pulse Oximetry 97 Oxygen Delivery Room Air Intake/Output Intake/Output: Intake & Output 01/17/24 01/18/24 01/19/24 01/20/24 22:59 23:59 23:59 23:59 Intake Total 1220 700 Output Total 4 Balance 1216 700 Meds/Results Medications: Active Medications Generic Name Dose Route Start Last Admin Trade Name Freq PRN Reason Stop Dose Admin Acetaminophen 1,000 mg 01/17/24 08:52 Acetaminophen 500 Mg Tablet PO Q6H PRN Mild Pain (1-3) or Fever Calcium Carbonate 200 mg 01/08/24 11:58 01/11/24 20:27 Calcium Carbonate (Tums) 500 Mg (200 Mg Elemental) PO 200 mg Q6H PRN Administration Indigestion Dextrose 12.5 gm 01/06/24 22:31 Dextrose 50% 25 Gm/50 Ml Syringe IV PUSH PRN PRN Hypoglycemia Protocol Dicyclomine HCl 20 mg 01/20/24 12:00 01/20/24 12:00 Dicyclomine Hcl 10 Mg Capsule PO 20 mg Q6HR BOY Administration Diphenhydramine HCl 50 mg 01/06/24 19:46 01/19/24 22:12 Diphenhydramine Hcl Inj 50 Mg/Ml Vial IV PUSH 50 mg Q4H PRN Administration Itching Enoxaparin Sodium 120 mg 01/11/24 09:00 01/20/24 08:23 Enoxaparin 120 Mg/0.8 Ml Syringe SUB-Q 120 mg Q12HR BOY Administration Glucagon 1 mg 01/06/24 22:31 Glucagon For Inj 1 Mg Vial IM PRN PRN Hypoglycemia Protocol Glucose 15 gm 01/06/24 22:31 Glucose Oral Gel 15 Gm Of Glucse In 37.5 Gm Tube PO PRN PRN Hypoglycemia Protocol Hydromorphone HCl 1 mg 01/18/24 11:57 Hydromorphone Hcl Inj (*Crx) 1 Mg/Ml Syr IV PUSH
--- NOTE | 2024-01-20 12:47 | P.PNIM_ITS ---
Progress Note: A&P Assessment and Plan (1) Sigmoid diverticulitis: Code(s): K57.32 - Diverticulitis of large intestine without perforation or abscess without bleeding Status: Acute Assessment and Plan: She was diagnosed with sigmoid diverticulitis several days ago and has been taking ciprofloxacin and metronidazole as an outpatient. * Continue antibiotics for diverticulitis to include ceftriaxone and metron idazole. * Symptoms improved. Advance diet. * Analgesics and antiemetics are available as needed. * Patient having increased pain overnight. Heel Attacher increased pain medications. See cross cover note. * 01/09 General surgery put patient on ANCHORMAN for better pain control. * Repeat CT abdomen and pelvis showing septic thrombophlebitis of the inferior mesenteric vein and branches that drain that region of the sigmoid. Early multifocal abscess formation within the sigmoid mesentery is suspected. * General surgery changed antibiotics to Zosyn and gentamicin. Gentamicin added on due to the synergistic affect with penicillins on enterococci coverage. * TPN continued until tolerating oral intake * monitor phos/mag/BMP * de-escalate pain medication * encourage activity 01/14: * Bowel series with moderate amount of stool * reports gas no BM * MOM x 1 per surgery attempt to get bowels moving * continue TPN until we advance diet 01/15: * still no BM but reports gas * bowel regiment deferred to general surgery * continue to encourage activity and oral hydration as tolerated * TPN until advancing diet * need to wean pain management 01/16: * Small BM reported * advance to low residual diet * imaging tomorrow * de-escalate pain medication 01/17: * BM x 3 * CT w/ con today following prep * tolerating PO * stopping TPN * stopped ANCHORMAN pain controlled will continue to de-escalate 01/19: * transition to PO ABX * Lovenox to eliquis * f/U CBC in the am monitor WBC * Bentyl for ABD cramping (2) Mesenteric vein thrombosis: Code(s): K55.069 - Acute infarction of intestine, part and extent unspecified Status: Acute Assessment and Plan: She was also diagnosed with mesenteric vein thrombosis however she did not have her apixaban filled for unclear reasons. * Patient started on heparin drip. * Lactic acid was normal and she is nontoxic in appearance. * Etiology of the thrombus is not entirely clear but may be related to inflammation from diverticulitis or prior gastric sleeve. * Surgery believes thrombus is from diverticulitis. * Lovenox BID 1mg/kg transition to eliquis at discharge. (3) Type 2 diabetes mellitus: Qualifiers: Diabetes mellitus bindery machine operator insulin use: without bindery machine operator use Diabetes mellitus complication status: without complication Qualified Code(s): E11.9 - Type 2 diabetes mellitus without complications Code(s): E11.9 - Type 2 diabetes mellitus without complications Status: Chronic Assessment and Plan: * Accu-Cheks a.c. HS * sliding scale insulin * hold oral diabetic medications * resume patient's home long-acting * Hemoglobin A1c goal less than * Watch for hypoglycemia/hypoglycemic protocol ordered 01/17: * hyperglycemia secondary to steriod dosing for ct w/contrast * SS increased to high for better coverage (4) Hypothyroidism (acquired): Code(s): E03.9 - Hypothyroidism, unspecified Status: Acute Assessment and Plan: * Stable * Resume levothyroxine Plan Code
--- NOTE | 2024-01-20 12:47 | PM.IMPN ---
Progress Note: A&P Assessment and Plan (1) Sigmoid diverticulitis: Code(s): K57.32 - Diverticulitis of large intestine without perforation or abscess without bleeding Status: Acute Assessment and Plan: She was diagnosed with sigmoid diverticulitis several days ago and has been taking ciprofloxacin and metronidazole as an outpatient. Continue antibiotics for diverticulitis to include ceftriaxone and metronidazole. Symptoms improved. Advance diet. Analgesics and antiemetics are available as needed. Patient having increased pain overnight. Superintendent Transportation increased pain medications. See cross cover note. 01/09 General surgery put patient on ROLL UP HELPER for better pain control. Repeat CT abdomen and pelvis showing septic thrombophlebitis of the inferior mesenteric vein and branches that drain that region of the sigmoid. Early multifocal abscess formation within the sigmoid mesentery is suspected. General surgery changed antibiotics to Zosyn and gentamicin. Gentamicin added on due to the synergistic affect with penicillins on enterococci coverage. TPN continued until tolerating oral intake monitor phos/mag/BMP de-escalate pain medication encourage activity 01/14: Bowel series with moderate amount of stool reports gas no BM MOM x 1 per surgery attempt to get bowels moving continue TPN until we advance diet 01/15: still no BM but reports gas bowel regiment deferred to general surgery continue to encourage activity and oral hydration as tolerated TPN until advancing diet need to wean pain management 01/16: Small BM reported advance to low residual diet imaging tomorrow de-escalate pain medication 01/17: BM x 3 CT w/ con today following prep tolerating PO stopping TPN stopped ROLL UP HELPER pain controlled will continue to de-escalate 01/19: transition to PO ABX Lovenox to eliquis f/U CBC in the am monitor WBC Bentyl for ABD cramping (2) Mesenteric vein thrombosis: Code(s): K55.069 - Acute infarction of intestine, part and extent unspecified Status: Acute Assessment and Plan: She was also diagnosed with mesenteric vein thrombosis however she did not have her apixaban filled for unclear reasons. Patient started on heparin drip. Lactic acid was normal and she is nontoxic in appearance. Etiology of the thrombus is not entirely clear but may be related to inflammation from diverticulitis or prior gastric sleeve. Surgery believes thrombus is from diverticulitis. Lovenox BID 1mg/kg transition to eliquis at discharge. (3) Type 2 diabetes mellitus: Qualifiers: Diabetes mellitus parts counterman insulin use: without parts counterman use Diabetes mellitus complication status: without complication Qualified Code(s): E11.9 - Type 2 diabetes mellitus without complications Code(s): E11.9 - Type 2 diabetes mellitus without complications Status: Chronic Assessment and Plan: Accu-Cheks a.c. HS sliding scale insulin hold oral diabetic medications resume patient's home long-acting Hemoglobin A1c goal less than Watch for hypoglycemia/hypoglycemic protocol ordered 01/17: hyperglycemia secondary to steriod dosing for ct w/contrast SS increased to high for better coverage (4) Hypothyroidism (acquired): Code(s): E03.9 - Hypothyroidism, unspecified Status: Acute Assessment and Plan: Stable Resume levothyroxine Plan Code status: Full code per patient DVT prophylaxis: Lovenox full dose BID tranistion to PO Eliquis at discharge Stress ulcer prophylaxis: Protonix 40 daily PT/OT notes: ambulatory Disposition: Patient continues admission to the medical unit since unable to tolerate oral intake remains on TPN continuing IV antibiotics in the encouraged patient to increase activity and deescalate pain medication. advance diet when tolerated will discharge to home when medically stable. Time Spent With Pat
[2024-01-20 13:55] VITALS: BP 123/55; PULSE 64; RESP 14; TEMP 36.4; O2SAT 99
[2024-01-20] MEDS: metroNIDAZOLE 500 MG TABLET PO ×2 (15:00→20:35)
[2024-01-20 16:35] LABS: Glucose Point of Care 312 mg/dl (65-105)
[2024-01-20 19:59] VITALS: BP 135/72; PULSE 52; RESP 20; TEMP 36; O2SAT 99
[2024-01-20 20:09] LABS: Glucose Point of Care 221 mg/dl (65-105)
[2024-01-20] MEDS: APIXABAN 5 MG TABLET PO (20:35)
[2024-01-20] MEDS: AMOXICILLIN/CLAVULANATE K 875-125 MG TAB 1 TABLET PO (20:35)
[2024-01-20] MEDS: diphenhydrAMINE HCl INJ 50 MG/ML VIAL IV PUSH (22:38)
[2024-01-21] MEDS: DICYCLOMINE HCL 10 MG CAPSULE 20 MG PO ×3 (00:09→13:17)
[2024-01-21] MEDS: oxyCODONE HCL (*CRX) 5 MG TAB IR 10 MG PO (03:11)
[2024-01-21 04:55] VITALS: BP 126/62; PULSE 60; RESP 18; TEMP 36.6; O2SAT 99
[2024-01-21] MEDS: metroNIDAZOLE 500 MG TABLET PO ×2 (05:16→13:17)
[2024-01-21] MEDS: LEVOTHYROXINE SODIUM 50 MCG TABLET PO (05:17)
[2024-01-21] MEDS: CENTRAL LINE FLUSH 10 ML IV PUSH ×2 (05:19→13:18)
[2024-01-21 05:35] LABS: Hematocrit 37.4 % (37.0-47.0); Hemoglobin 12.1 g/dL (12.0-15.0); Mean Corpuscular HGB Conc 32.4 g/dl (32-36); Mean Corpuscular Hemoglobin 31.5 pg (26-34); Mean Corpuscular Volume 97.4 fl (80-100); Mean Platelet Volume 10.4 fl (7.4-10.4); Platelet Count Result 169 k/mm3 (150-375); Red Blood Count 3.84 M/mm3 (4.2-5.4); Red Cell Distribution Width 14.7 % (11.5-14.5)
[2024-01-21 05:52] LABS: Alanine Aminotransferase 32 U/L (6-35); Albumin Level 3.4 g/dL (3.5-5.1); Alkaline Phosphatase 89 U/L (38-126); Anion Gap 4 mmol/L (8-16); Aspartate Amino Transferase 15 U/L (14-36); Bilirubin,Total 0.7 mg/dL (0.2-1.3); Blood Urea Nitrogen 15 mg/dL (7-17); Calcium 8.8 mg/dL (8.4-10.2); Carbon Dioxide 28 mmol/L (22-30); Chloride 104 mmol/L (98-107); Estimated CRCL calculation 77 ml/min; Estimated Glomerular Filt Rate > 60; Glucose 107 mg/dL (65-110); Potassium 3.8 mmol/L (3.4-5.0); Sodium 136 mmol/L (137-145)
[2024-01-21 08:24] LABS: Glucose Point of Care 106 mg/dl (65-105)
[2024-01-21] MEDS: PANTOPRAZOLE 40 MG TABLET PO (09:14)
[2024-01-21] MEDS: AMOXICILLIN/CLAVULANATE K 875-125 MG TAB 1 TABLET PO (09:14)
[2024-01-21] MEDS: polyethylene glycoL 3350 17 GM POWD.PACK PO (09:14)
[2024-01-21] MEDS: APIXABAN 5 MG TABLET PO (09:14)
[2024-01-21] MEDS: oxyCODONE HCL (*CRX) 5 MG TAB IR PO (09:27)
[2024-01-21] MEDS: ONDANSETRON INJ 4 MG/2 ML VIAL IV PUSH (09:27)
--- NOTE | 2024-01-21 09:53 | PM.PNGS ---
Progress Note: A&P Assessment and Plan (1) Sigmoid diverticulitis: Code(s): K57.32 - Diverticulitis of large intestine without perforation or abscess without bleeding Status: Acute Assessment and Plan: Patient continues to slowly improve. She is feeling much better today and is surgically stable for discharge. Continue Augmentin and Flagyl for another 2 weeks on discharge. Follow-up with Dr. Zamora in 3 weeks. (2) Septic thrombophlebitis: Code(s): I80.9 - Phlebitis and thrombophlebitis of unspecified site Status: Acute Assessment and Plan: Switched to apixaban, which will be continued on discharge for about 6 months. She will also need to follow-up with her PCP to manage her anticoagulation. We would also recommend continuing her oral antibiotics for another 2 weeks. Plan I have discussed the patient's case and plan of care with Dr. Zamora. Subjective Subjective Date/Time Seen: 01/21/24 09:33 Patient reports: no new complaints, tolerating a regular diet, flatus, bowel movement (x3 yesterday, drinking Miralax this am) and afebrile Interval history: Patient seen this morning after receiving her morning meds. She has some nausea after taking her meds on an empty stomach as her breakfast was coming up late. She has not had any other nausea for 2 days. This also happens at home if she does not eat with her medications. She feels like the dicyclomine is helping her abdominal cramping significantly. She is feeling better today. WBC normal. No other complaints at this time. Review of Systems Review of Systems: All systems reviewed & are unremarkable except as noted in HPI and below Exam Const: General: comfortable and no acute distress GI: Inspection: non-distended and obesity GI Palp: Yes Soft to palpation, Yes Tenderness to palpation present (GI) (very mild suprapubic tenderness), No Guarding due to palpation present (GI) and No Rebound tenderness present Auscultation: normal bowel sounds Objective Data Vital Signs Vital Signs: Vital Signs - 24 hr 01/20/24 13:55 01/20/24 19:59 01/21/24 04:55 Temperature 97.6 F 96.8 F L 97.9 F Pulse Rate 64 52 L 60 Respiratory Rate 14 20 18 Blood Pressure 123/55 L 135/72 126/62 Pulse Oximetry 99 99 99 Oxygen Delivery 01/21/24 08:00 Temperature Pulse Rate Respiratory Rate Blood Pressure Pulse Oximetry Oxygen Delivery Room Air Intake/Output Intake/Output: Intake & Output 01/18/24 01/19/24 01/20/24 01/21/24 23:59 23:59 23:59 23:59 Intake Total 1220 1780 300 Output Total 4 Balance 1216 1780 300 Meds/Results Medications: Active Medications Generic Name Dose Route Start Last Admin Trade Name Silvestreq PRN Reason Stop Dose Admin Acetaminophen 1,000 mg 01/17/24 08:52 Acetaminophen 500 Mg Tablet PO Q6H PRN Mild Pain (1-3) or Fever Amoxicillin/Clavulanate Potassium 1 tablet 01/20/24 21:00 01/21/24 09:14 Amoxicillin/Clavulanate K 875-125 Mg Tab PO 1 tablet Q12HR BOY Administration Apixaban 5 mg 01/20/24 21:00 01/21/24 09:14 Apixaban 5 Mg Tablet PO 5 mg Q12HR BOY Administration Calcium Carbonate 200 mg 01/08/24 11:58 01/11/24 20:27 Calcium Carbonate (Tums) 500 Mg (200 Mg Elemental) PO 200 mg Q6H PRN Administration Indigestion Dextrose 12.5 gm 01/06/24 22:31 Dextrose 50% 25 Gm/50 Ml Syringe IV PUSH PRN PRN Hypoglycemia Protocol Dicyclomine HCl 20 mg 01/20/24 12:00 01/21/24 05:17 Dicyclomine Hcl 10 Mg Capsule PO 20 mg Q6HR BOY Administration Diphenhydramine HCl 50 mg 01/06/24 19:46 01/20/24 22:38 Diphenhydramine Hcl Inj 50 Mg/Ml Vial IV PUSH 50 mg Q4H PRN Administration Itching Glucagon 1 mg 01/06/24 22:31 Glucagon For Inj 1 Mg Vial IM PRN PRN Hypoglycemia Protocol Glucose 15 gm 01/06/24 22:31 Glucose Oral Gel 15 Gm Of Glucse In 37.5 Gm Tube PO PRN PRN Hypoglycemia Protocol Hy
[2024-01-21 12:03] LABS: Glucose Point of Care 172 mg/dl (65-105)
--- NOTE | 2024-01-21 12:04 | PM.DS ---
DS: Admitting Diagnosis Discharge Date 01/21/24 Admitting Diagnosis Diverticulitis, SMV thrombosis DS: Discharge Diagnosis Discharge Diagnosis (1) Sigmoid diverticulitis: Code(s): K57.32 - Diverticulitis of large intestine without perforation or abscess without bleeding Status: Acute (2) Mesenteric vein thrombosis: Code(s): K55.069 - Acute infarction of intestine, part and extent unspecified Status: Acute (3) Type 2 diabetes mellitus: Qualifiers: Diabetes mellitus watermaster insulin use: without watermaster use Diabetes mellitus complication status: without complication Qualified Code(s): E11.9 - Type 2 diabetes mellitus without complications Code(s): E11.9 - Type 2 diabetes mellitus without complications Status: Chronic (4) Hypothyroidism (acquired): Code(s): E03.9 - Hypothyroidism, unspecified Status: Acute DS: Summary Hospital Course Hospital Course: This is a pleasant 63-year-old female with history of diverticulitis, gastric sleeve, gastroesophageal reflux disease, kidney stones, hypothyroidism and type 2 diabetes mellitus who presented to the emergency department via private vehicle from home for evaluation of back and abdominal pain.?She was seen in the emergency department at the [facility] on 01/03/[address] CT scan showed acute sigmoid diverticulitis with mesenteric vein thrombosis/thrombophlebitis. She was discharged home with prescriptions for ciprofloxacin, metronidazole, and apixaban with instructions to follow-up. She had been taking the antibiotics but had not yet started taking the apixaban. She came in to the ED again on 01/06/24 for worsening pain in the lower abdomen and pain throughout the mid to low back described as an aching pain. In the ED: She was afebrile on arrival with stable vital signs. Labs were significant for WBC count of 16.1, sodium 136, lactic acid 1.1. CT scan showed sigmoid diverticulitis and persist enlargement of the inferior mesenteric vein with surrounding fat stranding which is likely related to mesenteric vein thrombosis. She was started on heparin drip for the thrombosis and she is being admitted in this setting for further treatment and evaluation. Patient originally started on ceftriaxone and metronidazole for diverticulitis. Patient's pain did not improve with this treatment. General surgery consulted due to SMV thrombosis as well as diverticulitis. General surgery transition patient to Zosyn and gentamicin on 01/10/2024. Patient was put on Lovenox due to potential surgery. Patient did have some constipation during her stay to. She ended up requiring a CONSULTING INTERN for her uncontrollable pain. Patient also required TPN due to not tolerating oral intake. Patient was hospitalized for close to 2 weeks due to the complications of her diverticulitis. General surgery 8 in management. Patient was able to be transition to p.o. antibiotics on 01/20/2024. She was cleared for discharge by General surgery. She had repeat scans towards the end of her hospitalization that showed diverticulitis with micro perforation without difficult drainable fluid. General surgery cleared patient for discharge with follow-up with them in in 2 weeks. Will discharge patient on p.o. antibiotics as well as Eliquis. Patient does have some minimal abdominal discomfort but is doing much better. She is also having regular bowel movements. Labs and vital signs are stable and she is medically clear for discharge at this time. Time Spent with Patient Time attestation: Total time spent providing and/or coordinating discharge services: Exam Narrative: GENERAL: Comfortable, no acute distress HENMT: moist mucous membranes EYES: EOM intact b/l NECK: no lymphadenopathy RESPIRATORY: clear to auscultation CARDIO: RRR GI: soft, nontender, bowel sounds present SKIN: no rashes EXTREMITIES: no edema, redness or tenderness DS: Data Data Comple
[2024-01-21] MEDS: NEOMYCIN/POLYMYXIN/BACITRACIN OINTMENT PACKET 1 PACKET (13:18)
== END 2024-01-21 14:35 | disposition home or self-care (01) | DRG 391 ==
LOC: ANHED 14:23 → ANH3MEDSUR 17:05
PROVIDERS: Internal Medicine; Nurse Practitioner Family; Physician Assistant; Surgery; Admitting Provider Internal Medicine; Emergency Provider Emergency Medicine; PCP Physician Assistant Medical; Visit Provider Internal Medicine Critical Care Medicine
DX: K57.32 Diverticulitis of large intestine without perforation or abscess without bleeding (principal); K55.069 Acute infarction of intestine, part and extent unspecified; E66.01 Morbid (severe) obesity due to excess calories; E03.9 Hypothyroidism, unspecified; E11.65 Type 2 diabetes mellitus with hyperglycemia; T38.0X5A Adverse effect of glucocorticoids and synthetic analogues, initial encounter; K59.00 Constipation, unspecified; K21.9 Gastro-esophageal reflux disease without esophagitis; M17.12 Unilateral primary osteoarthritis, left knee; M81.0 Age-related osteoporosis without current pathological fracture; M06.9 Rheumatoid arthritis, unspecified; Z98.84 Bariatric surgery status; Z79.84 Long term (current) use of oral hypoglycemic drugs; Z68.37 Body mass index [BMI] 37.0-37.9, adult; Z96.651 Presence of right artificial knee joint; Z87.891 Personal history of nicotine dependence; Z87.442 Personal history of urinary calculi
CPT/HCPCS: 36415; 36569; 74019; 74176; 74177; 80048; 80053; 80170; 81001; 82565; 82948; 83605; 83690; 83735; 84100; 84443; 84466; 84478; 85025; 85027; 85610; 85730; 87086; 96361; 96365; 96366; 96375; 96376; 99285; A9270; C9113; G0378; J0696; J1170; J1200; J1580; J1644; J1650; J1741; J1815; J1836; J2060; J2405; J2543; J2920; J7030; J7040; J7512; Q9967

== ENCOUNTER 2024-02-18 12:56 | Outpatient (CLI) | payer MEDICARE, SELFPAY ==
--- NOTE | ~2024-02-18 | XR_ITS ---
Left Knee Technique: AP, lateral, and sunrise views were obtained. Clinical History: Osteoarthritis Findings: No fracture or dislocation is seen. Osseous alignment is anatomic. There is mild tricompart mental degenerative change.. Soft tissues are unremarkable. No joint effusion is seen. Impression: Mild tricompartmental degenerative change. Reviewed, dictated and finalized at [facility]. Impression: Mild tricompartmental degenerative change.
== END 2024-02-18 12:57 | disposition home or self-care (01) ==
PROVIDERS: PCP Family Medicine; Visit Provider Orthopaedic Surgery
DX: M17.12 Unilateral primary osteoarthritis, left knee (principal)
CPT/HCPCS: 73564

== ENCOUNTER 2024-03-09 00:24 | Day surgery (SDC) | payer MEDICARE, SELFPAY ==
[2024-02-27 13:41] VITALS: BMI 36.6
[2024-03-09 11:22] VITALS: BP 136/77; PULSE 63; RESP 18; TEMP 36.1; O2SAT 100
[2024-03-09] MEDS: LACTATED RINGERS 1,000 ML 150 ML IV CONT (11:27)
[2024-03-09 11:34] LABS: Glucose Point of Care 140 mg/dl (65-105)
--- NOTE | 2024-03-09 12:10 | WPDANESEPPF ---
Anes - Initial Pre Proc Eval Procedure: Operation Date: 03/09/24 11:30 Proposed Procedures p Colonoscopy - Alvin Blue DO Date/Time: 03/09/24 12:10 Surgeon: Alvin Blue DO Pre Op Diagnosis: Sigmoid Diverticulitis Patient Data Age: 63 Gender: F Height: 1.69 m Weight: 104.2 kg Last Vital Signs Temp 36.1 C L 03/09/24 11:22 Pulse 63 03/09/24 11:22 Resp 18 03/09/24 11:22 BP 136/77 03/09/24 11:22 Pulse Ox 100 03/09/24 11:22 O2 Del Method Room Air 03/09/24 11:22 Allergies Allergy/AdvReac Type Severity Reaction Status Date / Time Iodinated Contrast Media Allergy Severe Difficulty Verified 03/09/24 11:21 Breathing NSAIDS (Non-Steroidal AdvReac Unknown GASTRIC Verified 03/09/24 11:21 Anti-Inflamma BYPASS-NOT TO TAKE EVER ANESTHESIA GAS Allergy Severe Nausea and Uncoded 02/27/24 12:27 Vomiting Home Medications Medication Instructions Recorded Confirmed Type levothyroxine 50 mcg tablet 50 mcg PO DAILY #90 tabs 11/30/19 02/27/24 Rx metformin 500 mg tablet 500 mg PO DAILY 01/06/24 02/27/24 History apixaban 5 mg tablet (Eliquis) 5 mg PO Q12HR #60 tabs 01/21/24 02/27/24 Rx blood sugar diagnostic (Accu-Chek #100 ea 01/30/24 02/18/24 Rx Guide test strips) blood-glucose meter (Accu-Chek #1 ea 01/30/24 02/18/24 Rx Guide Glucose Meter) amoxicillin 875 mg-potassium 1 tablet PO Q12H 2 weeks #28 tabs 02/17/24 02/27/24 Rx clavulanate 125 mg tablet diphenhydramine 25 2 tablet PO HS 02/27/24 02/27/24 History mg-acetaminophen 500 mg tablet (Tylenol PM Extra Strength) Laboratory Tests 03/09/24 11:26 POC Capillary Glucose 140 H mg/dl (65-105) Patient hx anesthesia problems: none Family hx anesthesia problems: none Results Review: All pre-operative results and documents have been reviewed as part of the pre-operative evaluation. [facility] Past Medical History Medical History Arthritis Gastroesophageal reflux disease Hypothyroidism (acquired) Kidney stones Obesity (BMI 30-39.9) Osteoarthritis of left knee Osteoporosis Rheumatoid arthritis Type 2 diabetes mellitus Surgical History Surgical History History of carpal tunnel release History of right knee joint replacement 2017, Dr. Campos History of sleeve gastrectomy 2013 Family History Family History Sibling Carcinoma of colon Mother Acute myocardial infarction Diabetes mellitus Hypertension Father Hypertension Alcoholism Grandparent Diabetes mellitus Grandparent Breast cancer Other Arthritis Cerebrovascular accident Neuropathy Social History Social History Social History: Code status: Full code. Smoking packs per day: 1 Smoking cigarettes per day: 20.0 Years smoked: 10 Smoking pack-years: 10.00 Smoking status: Former smoker Alcohol intake: current Drinks per week: 4 Alcohol use details: seldom; socially Substance use: never Substance use type: does not use Do You Feel Safe in your Home?: Yes Lack of Transportation: No Lack of Food: Never True Current Housing: I Have Housing Concerned About Future Housing: No Difficulty Paying Gas/Electric Bills: No Difficulty Paying for Meds: No Currently Unemployed: No Education: Decline to Answer Difficulty w/ Childcare or Family Care: No Living arrangements: with family Spiritual care concerns: No Anes - Eval Final PreProcedure Day of Procedure 03/09/24 12:10 Patient weight: obese Heart: regular rate and rhythm Lungs: clear to auscultation Airway: Mallampati scale class II Neurological: alert and oriented Last oral intake: >/= 8 hours ASA classification: III Emergent: no Anesthetic plan: proceed Anesthesia type an
--- NOTE | 2024-03-09 12:20 | PM.IMHP ---
H&P: HPI History of Present Illness Date/Time: 03/09/24 12:20 Chief Complaint: Diverticulitis Narrative: This is a 63-year-old woman who presents for colonoscopy after a recent hospitalization for diverticulitis. She was hospitalized at the end of December and part of January with a severe episode of diverticulitis. She did not require emergent surgery, but was in the hospital for 16 days. She is still experiencing some minor pains and some bloating but is gradually improving. She has never had a colonoscopy before. She denies any hematochezia or melena. She denies any family history of colon cancer. Review of Systems Review of Systems: All systems reviewed & are unremarkable except as noted in HPI and below Constitutional: Constitutional: Denies chills, Denies fever(s), Denies headache(s) and Denies weight loss Eyes: Eyes: Denies change in vision ENT: Denies dizziness, Denies headache(s), Denies neck mass and Denies throat swelling Cardiovascular: Cardiovascular: Denies chest pain, Denies lightheadedness and Denies dyspnea Respiratory: Respiratory: Denies cough, Denies dyspnea and Denies wheezing Gastrointestinal: Gastrointestinal: Denies abdominal pain, Denies change in bowel habits, Denies nausea and Denies vomiting Genitourinary: Genitourinary: Denies hematuria and Denies dysuria Musculoskeletal: Musculoskeletal: Reports as per HPI Integumentary/Breasts: Skin/Breast: Reports as per HPI Neurologic: Denies dizziness and Denies headache(s) Allergic/Immunologic: Allergic/Immunologic: Denies throat swelling and Denies wheezing [facility] Past Medical History Medical History Arthritis Gastroesophageal reflux disease Hypothyroidism (acquired) Kidney stones Obesity (BMI 30-39.9) Osteoarthritis of left knee Osteoporosis Rheumatoid arthritis Type 2 diabetes mellitus Surgical History Surgical History History of carpal tunnel release History of right knee joint replacement 2017, Dr. Campos History of sleeve gastrectomy 2013 Family History Family History Sibling Carcinoma of colon Mother Acute myocardial infarction Diabetes mellitus Hypertension Father Hypertension Alcoholism Grandparent Diabetes mellitus Grandparent Breast cancer Other Arthritis Cerebrovascular accident Neuropathy Social History Social History Social History: Code status: Full code. Smoking packs per day: 1 Smoking cigarettes per day: 20.0 Years smoked: 10 Smoking pack-years: 10.00 Smoking status: Former smoker Alcohol intake: current Drinks per week: 4 Alcohol use details: seldom; socially Substance use: never Substance use type: does not use Do You Feel Safe in your Home?: Yes Lack of Transportation: No Lack of Food: Never True Current Housing: I Have Housing Concerned About Future Housing: No Difficulty Paying Gas/Electric Bills: No Difficulty Paying for Meds: No Currently Unemployed: No Education: Decline to Answer Difficulty w/ Childcare or Family Care: No Living arrangements: with family Spiritual care concerns: No Meds Home Medications and Allergies Home Medications Medication Instructions Recorded Confirmed Type levothyroxine 50 mcg tablet 50 mcg PO DAILY #90 tabs 11/30/19 02/27/24 Rx metformin 500 mg tablet 500 mg PO DAILY 01/06/24 02/27/24 History apixaban 5 mg tablet (Eliquis) 5 mg PO Q12HR #60 tabs 01/21/24 02/27/24 Rx blood sugar diagnostic (Accu-Chek #100 ea 01/30/24 02/18/24 Rx Guide test strips) blood-glucose meter (Accu-Chek #1 ea 01/30/24 02/18/24 Rx Guide Glucose Meter) amoxicillin 875 mg-potassium 1 tablet PO Q12H 2 weeks #28 tabs 02/17/24 02/27/24 Rx clavulanate 125 mg tablet diphenhydramine 25 2
[2024-03-09 13:05] VITALS: BP 125/57; PULSE 67; RESP 25; O2SAT 95
[2024-03-09 13:15] VITALS: BP 128/60; PULSE 60; RESP 16; O2SAT 98
[2024-03-09 13:25] VITALS: BP 123/55; PULSE 65; RESP 18; O2SAT 98
== END 2024-03-09 13:35 | disposition home or self-care (01) ==
PROVIDERS: PCP Nurse Practitioner Family; Visit Provider Surgery
PROC: 0DJD8ZZ Inspection of Lower Intestinal Tract, Via Natural or Artificial Opening Endoscopic (ICD-10-PCS; CPT 45378; principal; 2024-03-09 11:30)
DX: Z09 Encounter for follow-up examination after completed treatment for conditions other than malignant neoplasm (principal); D12.0 Benign neoplasm of cecum; D12.3 Benign neoplasm of transverse colon; D12.5 Benign neoplasm of sigmoid colon; K57.30 Diverticulosis of large intestine without perforation or abscess without bleeding; Z87.19 Personal history of other diseases of the digestive system; E11.9 Type 2 diabetes mellitus without complications; E03.9 Hypothyroidism, unspecified; Z79.01 Long term (current) use of anticoagulants; Z79.84 Long term (current) use of oral hypoglycemic drugs; Z98.84 Bariatric surgery status; Z87.891 Personal history of nicotine dependence; E66.9 Obesity, unspecified; Z68.36 Body mass index [BMI] 36.0-36.9, adult
CPT/HCPCS: 45380; 45385; 82948; 88305; J2704; J7120

== ENCOUNTER 2025-04-05 12:03 | Outpatient (CLI) | payer MEDICARE, SELFPAY ==
--- NOTE | ~2025-04-05 | XR_ITS ---
XR foot RT 2V Ordering provider: Earl Herr MD History: . RA . Comparison: None. FINDINGS: BONES: No acute fracture or dislocation. Periarticular osteopenia is noted. JOINT SPACES: Normal. No tarsal coalition. SOFT TISSUES: Normal. Calcaneus spur. IMPRESSION: No acute osseous abnormality of the right foot. Periarticular osteopenia. Reviewed, dictated and finalized at location A.
--- NOTE | ~2025-04-05 | XR_ITS ---
XR sacroiliac joints min 3V Ordering provider: Earl Herr MD History: . RA . Comparison: None. FINDINGS: BONES: No acute fracture or dislocation. JOINTS: The bilateral sacroiliac joint spaces appear well maintained. No bony fusion of the sacroilia c joints or bony erosions. SOFT TISSUES: Unremarkable. Degenerative changes of the spine. Mild bilateral hip narrowing of the joint space. IMPRESSION: NO ACUTE OSSEOUS ABNORMALITY. NORMAL SACROILIAC JOINTS. Reviewed, dictated and finalized at location A.
--- NOTE | ~2025-04-05 | XR_ITS ---
3 VIEWS LUMBAR SPINE Ordering provider: Earl Herr MD History: . RA . Comparison: None. FINDINGS: VERTEBRAL BODIES: No visible fracture or subluxation. Degenerative changes of the spine. DISK SPACES: Narrowing of the disc L1-L2, L3-L4, L4-L5 and L5-S1. SOFT TISSUES: Aortic atherosclerotic changes. IMPRESSION: No acute osseous abnormality lumbar spine. Multilevel degenerative disc disease. Reviewed, dictated and finalized at location A.
--- NOTE | ~2025-04-05 | XR_ITS ---
XR hand BI arthritis min 3V Ordering provider: Earl Herr MD History: . RA/PAIN . Comparison: None. FINDINGS: RIGHT HAND: --BONES: No acute fracture or dislocation. No osteopenia. --JOINT SPACES: Slight narrowing of the proximal and distal interphalangeal joints.. No erosion, oste ophytosis or sclerosis. --SOFT TISSUES: Unremarkable. No soft tissue swelling or nodules. LEFT HAND: --BONES: Minimal osteopenia. No acute fracture or dislocation. --JOINT SPACES: Slight narrowing of the proximal and distal ureters.. No erosion, osteophytosis or sc lerosis. --SOFT TISSUES: Unremarkable. No soft tissue swelling or nodules. IMPRESSION: 1. No acute osseous abnormality bilateral hands. 2. Slight narrowing of the proximal and distal interphalangeal joints. Differential include osteoart hritic changes. Rheumatoid arthritis cannot be excluded. Clinical correlation advised. Reviewed, dictated and finalized at location A. IMPRESSION: 1. No acute osseous abnormality bilateral hands. 2. Slight narrowing of the proximal and distal interphalangeal joints. Differe ntial include osteoarthritic changes. Rheumatoid arthritis cannot be excluded. Clinical correlation advised.
--- NOTE | ~2025-04-05 | XR_ITS ---
HISTORY: RA COMPARISON: None TECHNIQUE: 2 views of the left foot were performed FINDINGS: No acute fracture or dislocation is appreciated. No significant degenerative disease is noted. The base of the fifth metatarsal is intact. Large calcaneal spur is noted. No significant soft tissue swelling is present. IMPRESSION: Degenerative disease without acute fracture Reviewed, dictated and finalized at location A.
--- OUTSIDE RECORDS SUMMARY | 2025-04-05 12:08 | XMS_ITS | Encounter Summary ---
Author Organization [facility] Address [address] [place] [address] Care Team Providers Care Mash Grinder Name Role Phone Linnea Sánchez MD Primary Care Provider [phone] Karthik Campos DO Unavailable [phone] Jonatan Kaur MD Primary Care Provider [phone]- [phone] Apurva Lock ADJUNCT INSTRUCTOR CHEMISTRY-TECHNICAL SUPPORT MANAGER Unavailable [phone]- [phone] Encounter Details Date Type Department Care Team (Late st Contact Info) Description 12/07/2014 Therapy Visit [facility] [address] [place] [address] Unknown, Provider Social History Tobacco Use Types Packs/Day Years Used Date Smoking Tobacco: Former Cigarettes Q uit: 06/12/2013 Alcohol Use Standard Drinks/Week Comments No 0 (1 standard drink = 0.6 oz pur e alcohol) Comments No Sex and Gender Information Value Date Recorded Sex Assigned at Not on file Legal Sex Female 7:00 AM GUIDE DELEGATE Gender Identity Not on file Sexual Orientation Not on file documented as of this encounter Plan of Treatment Not on file documented as of this encounter Goals Goal Patient Goal Type Associated Problems Recent Progress Patient-Stated? Author [facility] Lifestyle: Have labs drawn Lifestyle No Sadie Sanford MA documented as of this encounter Visit Diagnoses Not on filedocumented in this encounter Care Teams Mash Grinder Relationship Specialty Start Date End Date Linnea Sánchez MD [address] [facility] [place] [address] PCP - General 10/13/08 05/01/17 Jonatan Kaur MD [address] [place] [address] PCP - General Family Medicine 05/02/17 Apurva Lock, ADJUNCT INSTRUCTOR CHEMISTRY-TECHNICAL SUPPORT MANAGER [address] [facility] [place] [address] PCP - Attributed-[place] [employer] 01/02/18 01/06/18 Karthik Campos DO [address] [place] [id number] Orthopedic Surgery 02/15/16 documented as of this encounter
--- OUTSIDE RECORDS SUMMARY | 2025-04-05 12:08 | XMS_ITS | Encounter Summary ---
Author Organization [facility] Address [address] [facility] [place] [address] Care Team Prov[address] Care Court Recorder Name Role Phone Karthik Campos DO Unavailable [phone] Jonatan Kaur MD Primary Care Provider [phone] Encounter Details Date Type Department Care Team (Late st Contact Info) Description 04/01/2018 [facility] Outpatient Visit [facility] Orthopedics - Radiology [address] [place] [address] [place] [address] Document, Scanned Social History Tobacco Use Types Packs/Day Years Used Date Smoking Tobacco: Former Cigarettes Q uit: 06/12/2013 Smokeless Tobacco: Never Alcohol Use Standard Drinks/Week Comments No 0 (1 standard drink = 0.6 oz pur e alcohol) Comments No Sex and Gender Information Value Date Recorded Sex Assigned at Not on file Legal Sex Female 7:00 AM PUBLIC RELATIONS OFFICER Gender Identity Not on file Sexual Orientation Not on file documented as of this encounter Functional Status * Is person deaf or have serious hearing difficulty? Answer Date of Assessment Author No 01/14/2018 2:21 PM Keisha Giron RN * Is person blind or have serious difficulty seeing? Answer Date of Assessment Author No 01/14/2018 2:21 PM Keisha Giron RN * Does person have serious difficulty walking/climbing stairs? Answer Date of Assessment Author Yes 01/14/2018 2:21 PM PUBLIC RELATIONS OFFICER Bettison, Keisha E, RN * Does person have difficulty dressing/bathing? Answer Date of Assessment Author No 01/14/2018 2:21 PM Keisha Giron RN * Does person have difficulty doing errands alone? Answer Date of Assessment Author Yes 01/14/2018 2:21 PM Keisha Giron RN documented as of this encounter Mental Status * Does person have difficulty concentrating/remembering/making decisions? Answer Entry Date Author No 01/14/2018 2:21 PM Keisha Giron RN documented in this encounter Plan of Treatment Not on file documented as of this encounter Goals Goal Patient Goal Type Associated Problems Recent Progress Patient-Stated? Author [facility] Lifestyle: Have labs drawn Lifestyle No Sadie Sanford MA documented as of this encounter Visit Diagnoses Not on filedocumented in this encounter Care Teams Court Recorder Relationship Specialty Start Date End Date Jonatan Kaur MD [address] [place] [address] PCP - General Family Medicine 05/02/17 Karthik Campos DO [address] [place] [id number] Orthopedic Surgery 02/15/16 documented as of this encounter
--- OUTSIDE RECORDS SUMMARY | 2025-04-05 12:08 | XMS_ITS | Encounter Summary ---
Author Organization [facility] Address [address] [place] [address] Care Team Providers Care Order Picker/Assembler Name Role Phone Karthik Campos DO Unavailable [phone] Jonatan Kaur MD Primary Care Provider [phone]- [phone] Apurva Lock APRN-PAPER PRODUCTION ENGINEER Unavailable [phone] Encounter Details Date Type Department Care Team (Late st Contact Info) Description 10/27/2017 [facility] Outpatient Visit [facility] Orthopedics - Radiology [address] [place] [address] Karthik Campos, DO [address] [place] [address] Social History Tobacco Use Types Packs/Day Years Used Date Smoking Tobacco: Former Cigarettes Q uit: 06/12/2013 Alcohol Use Standard Drinks/Week Comments No 0 (1 standard drink = 0.6 oz pur e alcohol) Comments No Sex and Gender Information Value Date Recorded Sex Assigned at Not on file Legal Sex Female 7:00 AM TAXATION ECONOMIST Gender Identity Not on file Sexual Orientation Not on file documented as of this encounter Functional Status * Is person deaf or have serious hearing difficulty? Answer Date of Assessment Author No 01/15/2016 9:46 AM TAXATION ECONOMIST Susana Ramos RN * Is person blind or have serious difficulty seeing? Answer Date of Assessment Author No 01/15/2016 9:46 AM Susana Murry RN * Does person have serious difficulty walking/climbing stairs? Answer Date of Assessment Author No 01/15/2016 9:46 AM Susana Murry RN * Does person have difficulty dressing/bathing? Answer Date of Assessment Author No 01/15/2016 9:46 AM Susana Murry RN * Does person have difficulty doing errands alone? Answer Date of Assessment Author No 01/15/2016 9:46 AM Susana Murry RN documented as of this encounter Mental Status * Does person have difficulty concentrating/remembering/making decisions? Answer Entry Date Author No 01/15/2016 9:46 AM Susana Murry RN documented in this encounter Plan of Treatment Not on file documented as of this encounter Goals Goal Patient Goal Type Associated Problems Recent Progress Patient-Stated? Author [facility] Lifestyle: Have labs drawn Lifestyle No Sadie Sanford MA documented as of this encounter Visit Diagnoses Not on filedocumented in this encounter Care Teams Order Picker/Assembler Relationship Specialty Start Date End Date Jonatan Kaur MD [address] [place] [address] PCP - General Family Medicine 05/02/17 Apurva Lock APRN-HATTIE [address] [place] [address] PCP - Attributed-[place] Commercial 01/02/18 01/06/18 Karthik Campos DO [address] [place] [address] Orthopedic Surgery 02/15/16 documented as of this encounter
--- OUTSIDE RECORDS SUMMARY | 2025-04-05 12:08 | XMS_ITS | Clinical Summary ---
Author Organization [facility] Address [address], [facility] [address] [place] [address] Phone Care Team Providers Care Social Services Coordinator Name Role Phone Jonatan Kaur MD Primary Care Provider Medications polyethylene glycol (MIRALAX) Powder Use entire 255g bottle with 64oz of clear liquid as directed for colonoscopy prep. 255 g 7 Active Social History Tobacco Use Types Packs/Day Years Used Date Smoking Tobacco: Never Assessed Comments Unknown Sex and Gender Information Value Date Recorded Sex Assigned at Not on file Legal Sex Female 2:39 PM CDT Gender Identity Not on file Sexual Orientation Not on file Plan of Treatment Health Maintenance Due Date Last Done Comments Hepatitis C Virus (HCV) Screening 1960 TdaP Immunization 1960 Pap Smear 1981 Cervical Cancer Screening (CCS) 1990 HPV/Cotest 1990 Colonoscopy 2005 Colorectal Cancer Screening 2005 Cologuard 2010 Immunochemical Fecal Occult Blood 2010 Mammogram 2010 Pneumococcal Immunization (5 0+ years) (1 of 1 - PCV) 2010 Zoster Immunization (1 of 2) 2010 Influenza Immunization (#1) 2024 SARS-COV-2 Immunization ( - 2023-25 season) 2024 Respiratory Syncytial Virus (RSV) Immunization (Adult) (1 - 1-dose 75+ series) 2035 Hepatitis B Immunization Aged Out No longer eligible based on patient's age to complete this topic Meningococcal Immunization (ACWY) Aged Out No longer eligible based on patient's age to complete this topic Pneumococcal Immunization Combined Aged Out No longer eligible based on patient's age to complete this topic Rotavirus Immunization Aged Out No lo nger eligible based on patient's age to complete this topic Insurance MEDICARE C [facility] on file Care Teams Social Services Coordinator Relationship Specialty Start Date End Date Jonatan Kaur MD [address] [place] [address] PCP - General Family Medicine 04/28/17
--- OUTSIDE RECORDS SUMMARY | 2025-04-05 12:08 | XMS_ITS | Continuity of Care Document ---
Author Organization [facility] Address [address] [place] [address] Phone Care Team Providers Care Deck Mate Name Role Phone Unavailable Unavailable Unavailable Allergies, Adverse Reactions, Alerts Substance Reaction Status Criticality Penicillins Active No Information Medications Medication Instructions Dosage Effective Dates (start - stop) Status Comments No Drug Therapy Prescribed Procedures Procedure Date X-ray exam knee, 3 views Office/outpatient visit,[facility] 2013 Office/outpatient visit,[facility] 2013 Asp/inject major joint or bursa 014 Kenalog Triamcinolone acetonide inj Advance Directives Directive Yes / No Effective Date File Name No Information Encounters Encounter Description Practice Location Reason(s) For Visit Diagnoses Date Provider Providers Copied on Encounter Office/outpat ient visit,[facility], [facility] [employer] [facility], [address], [place], [place], [id number], [place] tel:[phone] [facility] [employer] [employer] [facility] JOINT PAIN-L/LEG 4 No Information [facility] [employer] [facility], [address], [place], [place], [id number], [place] tel:[phone] [facility] [employer] [facility] JOINT PAIN-L/LEG CHONDROMAL ACIA PATELLAE 4 No Information Office/outpat ient visit,[facility], [address], [place], [place], [id number], [place] tel:[phone] [facility] Pain in joint involving lower legOsteoar throsis, localized, primary, involving lower leg 0-201 4 No Information Family History Family Member Type Diagnosis Age At Onset No Information Payers Payer name Insurance type Covered republican ID Davis wilder(s) [facility] [id number] Social History Type Description Quantity Date Captured Comments Alcohol Use Details Unknown Caffeine Use Details Unknown Tobacco Use Status Ex-cigarette smoker 014 Smoking Status Former smoker Non-Smoking Tobacco Use Details : No Details Available : No Details Available Sex Female Chief Complaint And Reason For Visit No Information Reason For Referral Reason For Referral No Information Plan Of Treatment Date Type Action Status Referral Ordered: X-ray exam knee, 3 views RT knee ordered History Of Present Illness Encounter Date Complaint History Of Prese nt Illness No Information Functional Status Date Functional Assessmen t No Information Medications Administered Medication Instructions Dosage Effective Dates (start - stop) Status Comments No Drug Therapy Prescribed Instructions Date Instruction Additional Infor mation No Information Assessments Type Assessment Date assessment JOINT PAIN-L/LEG Patient Care Teams Name Effective Dates (start - stop) Status Members No Information
--- OUTSIDE RECORDS SUMMARY | 2025-04-05 12:08 | XMS_ITS | Encounter Summary ---
Author Organization [facility] Address [address] [facility] [place] [address] Care Team Providers Care Special Agent Group Insurance Name Role Phone Karthik Campos DO Unavailable [phone] Jonatan Kaur MD Primary Care Provider [phone] Encounter Details Date Type Department Care Team (Late st Contact Info) Description 03/09/2018 [facility] Outpatient Visit [facility] Orthopedics [address] [place] [address] Document, Scanned Social History Tobacco Use Types Packs/Day Years Used Date Smoking Tobacco: Former Cigarettes Q uit: 06/12/2013 Smokeless Tobacco: Never Alcohol Use Standard Drinks/Week Comments No 0 (1 standard drink = 0.6 oz pur e alcohol) Comments No Sex and Gender Information Value Date Recorded Sex Assigned at Not on file Legal Sex Female 7:00 AM FINANCIAL SERVICES INTERN Gender Identity Not on file Sexual Orientation [...] Yes 01/14/2018 2:21 PM Keisha Giron RN * Does person have difficulty dressing/bathing? [...] on filedocumented in this encounter Care Teams Special Agent Group Insurance Relationship Specialty Start Date End Date Jonatan Kaur MD [address] [place] [address] PCP - General Family Medicine 05/02/17 Karthik Campos DO [address] [place] [address] Orthopedic Surgery 02/15/16 documented as of this encounter
--- OUTSIDE RECORDS SUMMARY | 2025-04-05 12:08 | XMS_ITS | Encounter Summary ---
Author Organization [facility] Address [address] [facility] [place] [address] Care Team Providers Care Sewing Machine Operator Zipper Name Role Phone Karthik Campos DO Unavailable Jonatan Kaur MD Primary Care Provider [phone] Encounter Details Date Type Department Care Team (Late st Contact Info) Description 03/25/2018 [facility] Outpatient Visit [facility] Orthopedics [address] [place] [address] Document, Scanned Social History Tobacco Use Types Packs/Day Years Used Date Smoking Tobacco: Former Cigarettes Q uit: 06/12/2013 Smokeless Tobacco: Never Alcohol Use Standard Drinks/Week Comments No 0 (1 standard drink = 0.6 oz pur e alcohol) Comments No Sex and Gender Information Value Date Recorded Sex Assigned at Not on file Legal Sex Female 7:00 AM LATHE TENDER Gender Identity Not on file Sexual Orientation [...] on filedocumented in this encounter Care Teams Sewing Machine Operator Zipper Relationship Specialty Start Date End Date Jonatan Kaur MD [address] [place] [address] PCP - General Family Medicine 05/02/17 Karthik Campos DO [address] [place] [address] Orthopedic Surgery 02/15/16 documented as of this encounter
--- OUTSIDE RECORDS SUMMARY | 2025-04-05 12:08 | XMS_ITS | Encounter Summary ---
Author Organization [facility] Address [address] [facility] [address] Care Team Providers Care Insurance Office Manager Name Role Phone Linnea Sánchez MD Primary Care Provider [phone] Karthik Campos DO Unavailable [phone] Jonatan Kaur MD Primary Care Provider [phone] Apurva Lock SLUNK SKIN CURER-PAPER CUTTER Unavailable [phone]- [phone] Encounter Details Date Type Department Care Team (Late st Contact Info) Description 10/03/2015 Therapy Visit [facility] [address] [place] [address] Document, Scanned Social History Tobacco Use Types Packs/Day Years Used Date Smoking Tobacco: Former Cigarettes Q uit: 06/12/2013 Alcohol Use Standard Drinks/Week Comments No 0 (1 standard drink = 0.6 oz pur e alcohol) Comments No Sex and Gender Information Value Date Recorded Sex Assigned at Not on file Legal Sex Female 7:00 AM OVEN BUILDER Gender Identity Not on file Sexual Orientation Not on file documented as of this encounter Plan of Treatment Not on file documented as of this encounter Goals Goal Patient Goal Type Associated Problems Recent Progress Patient-Stated? Author [facility] Lifestyle: Have labs drawn Lifestyle No Sadie Sanford MA documented as of this encounter Visit Diagnoses Not on filedocumented in this encounter Care Teams Insurance Office Manager Relationship Specialty Start Date End Date Linnea Sánchez MD [address] [place] [address] PCP - General 10/13/08 05/01/17 Jonatan Kaur MD [address] [place] [address] PCP - General Family Medicine 05/02/17 Apurva Lock, SLUNK SKIN CURER-PAPER CUTTER [address] [facility] [place] [address] PCP - Attributed-[place] Commercial 01/02/18 01/06/18 Karthik Campos DO [address] [place] [address] Orthopedic Surgery 02/15/16 documented as of this encounter
--- OUTSIDE RECORDS SUMMARY | 2025-04-05 12:08 | XMS_ITS | Encounter Summary ---
Author Organization [facility] Address [address] [facility] [place] [address] Care Team Providers Care Speech Therapist Name Role Phone Karthik Campos DO Unavailable oJnatan Kaur MD Primary Care Provider [phone] Apurva Lock APRN-EVENTS ASSOCIATE Unavailable [phone] Encounter Details Date Type Department Care Team (Late st Contact Info) Description 11/20/2017 [facility] Outpatient Visit [facility] Orthopedics [address] [place] [address] Karthik Campos, [address] [place] [address] Social History Tobacco Use Types Packs/Day Years Used Date Smoking Tobacco: Former Cigarettes Q uit: 06/12/2013 Smokeless Tobacco: Never Alcohol Use Standard Drinks/Week Comments No 0 (1 standard drink = 0.6 oz pur e alcohol) Comments No Sex and Gender Information Value Date Recorded Sex Assigned at Not on file Legal Sex Female 7:00 AM BLIND SLAT STAPLING MACHINE OPERATOR Gender Identity Not on file Sexual Orientation Not on file documented as of this encounter Functional Status * Is person deaf or have serious hearing difficulty? Answer Date of Assessment Author No 01/15/2016 9:46 AM BLIND SLAT STAPLING MACHINE OPERATOR Susana Ramos RN * Is person blind [...] on filedocumented in this encounter Care Teams Speech Therapist Relationship Specialty Start Date End Date Jonatan Kaur MD [address] [place] [address] PCP - General Family Medicine 05/02/17 Apurva Lock APRN-HATTIE [address] [place] [address] PCP - Attributed-[place] Commercial 01/02/18 01/06/18 Karthik Campos DO [address] [place] [address] Orthopedic Surgery 02/15/16 documented as of this encounter
--- OUTSIDE RECORDS SUMMARY | 2025-04-05 12:08 | XMS_ITS | Encounter Summary ---
Author Organization [facility] Address [address] [facility] [place] [address] Care Team Providers Care Cookie Mixer Helper Name Role Phone Linnea Sánchez MD Primary Care Provider [phone] Karthik Campos DO Unavailable [phone] Jonatan Kaur MD Primary Care Provider [phone] Apurva Lock DELIVERY OF SHOPPING NEWS-JUKEBOX ROUTE DRIVER Unavailable +- [phone] Encounter Details Date Type Department Care Team (Late st Contact Info) Description 11/26/2014 Therapy Visit [facility] [address] [place] [address] Unknown, Provider Social History Tobacco Use Types Packs/Day Years Used Date Smoking Tobacco: Former Cigarettes Q uit: 06/12/2013 Alcohol Use Standard Drinks/Week Comments No 0 (1 standard drink = 0.6 oz pur e alcohol) Comments No Sex and Gender Information Value Date Recorded Sex Assigned at Not on file Legal Sex Female 7:00 AM WORKFORCE CONSULTANT Gender Identity Not on file Sexual Orientation Not on file documented as of this encounter Plan of Treatment Not on file documented as of this encounter Goals Goal Patient Goal Type Associated Problems Recent Progress Patient-Stated? Author [facility] Lifestyle: Have labs drawn Lifestyle No Sadie Sanford MA documented as of this encounter Visit Diagnoses Not on filedocumented in this encounter Care Teams Cookie Mixer Helper Relationship Specialty Start Date End Date Linnea Sánchez MD [address] [facility] [place] [address] PCP - General 10/13/08 05/01/17 Jonatan Kaur MD [address] [place] [address] PCP - General Family Medicine 05/02/17 Apurva Lock, DELIVERY OF SHOPPING NEWS-JUKEBOX ROUTE DRIVER [address] [place] [address] PCP - Attributed-[place] Commercial 01/02/18 01/06/18 Karthik Campos DO [address] [place] [address] Orthopedic Surgery 02/15/16 documented as of this encounter
--- OUTSIDE RECORDS SUMMARY | 2025-04-05 12:08 | XMS_ITS | Clinical Summary ---
Author Organization [facility] Address [address] [place] [address] Care Team Providers Care Ceramic Restorer Name Role Phone Karthik Campos DO Unavailable [phone] Jonatan Kaur MD Primary Care Provider [phone] Source Comments [facility],non-owned Affiliates and Associated Physician Practices is amultiple site organization consisting of ambulatory clinics and hospital sitesin [place], [place], [place] and [place]. This disclosure is being madepursuant to the Care Everywhere program and may not contain all information available regarding this patient. Last updated 18.[facility] Allergies Active Allergy Reactions Criticality Noted Date Comments Pioglitazone Nausea and/or Vomiting 08/05/2014 Edema Nsaids Itching,Other 01/14/2018 Due to gastric surgery Other 08/21/2010 Noniodinized contrast dye Penicillins Urticaria Medium 08/17/2008 Pt states had allergic reaction many years ago, but not sure what year Medications * Be aware that medications may not be up to date on this document. Alwaysverify current medications with the patient. Multiple Vitamin (MULTIVITAMINS PO) Take 1 Tab by mouth once daily ...Bariatric patient (Chewable tablet and capsules) Active Calcium Citrate-Vitamin D 500-500 MG-UNT/5GM Take 500 mg by mouth 3 times daily .....Bariatric patient. Powder with Vitamin D 500 mg three times daily Active levothyroxine (SYNTHROID) 50 MCG tablet TAKE 1 TABLET DAILY 90 Tab 1 7 Active cetirizine (ZYRTEC) 10 MG tablet Take 10 mg by mouth once daily Active traMADol (ULTRAM) 50 MG tablet 1 tablet every 4 hours as needed for Pain 90 tablet 2 8 Active morphine CR 12hr (MS CONTIN) 15 MG tablet Take 1 tablet by mouth every 12 hours 30 tablet 8 Active senna-docusate (SENOKOT-S) 8.6-50 MG tablet Take 1 tablet by mouth 2 times daily 30 tablet 8 Active rivaroxaban (XARELTO) 10 MG tablet Take 1 tablet by mouth once daily 21 tablet 8 Active metoclopramide (REGLAN) 10 MG tablet Take 1 tablet by mouth every 6 hours as needed for Nausea/Vomiting 40 tablet 8 Active hydrOXYzine hcl (ATARAX) 25 MG tablet Take 1 tablet by mouth every 6 hours as needed (pain, nausea) 30 tablet 8 Active ondansetron (ZOFRAN) 4 MG tablet Take 1 tablet by mouth every 6 hours as needed For nausea and vomiting. 30 tablet 8 Active oxyCODONE-acetam inophen (PERCOCET) 10-325 MG tabletIndication s:Status post total knee replacement, unspecified laterality Take 1-2 tablets by mouth every 4 hours as needed for Pain Earliest Fill Date: 02/16/18 90 tablet 8 Active oxyCODONE-acetam inophen (PERCOCET) 10-325 MG tabletIndication s:Status post total right knee replacement 1 tablet every 4 hours as needed for Pain 90 tablet 8 Active methylPREDNISolo ne (MEDROL DOSEPAK) 4 MG tabletIndication s:Pain Take 1 tablet by mouth as directed Medrol Dosepak #1, take as directed. Reasons: Pain 21 tablet 8 Active Additional Information Patient not taking.Reported on 04/07/2018 HYDROcodone-acet aminophen (NORCO) 10-325 MG tabletIndication s:Moderate to Moderately Severe Pain Take 1 tablet by mouth every 8 hours as needed for Pain Reasons: Moderate to Moderately Severe Pain 25 tablet 9 Active Active Problems Patient Care Coordination No te Formatting of this note migh t be different from the original. [place], [place] [phone] Problem Noted Date Diagnosed Date Primary osteoarthritis of left knee 07/26/2019 History of right knee joint replacement 01/15/20 18 Primary osteoarthritis of both knees 08/04/2017 Bariatric surgery status 11/05/2016 Rheumatoid arthritis 08/16/2015 Overview (09/17/2015): [facility]s with [facility] Obesity 03/31/2012 Seasonal allergies 03/31/2012 Thyroid nodule 10/01/2011 Hypothyroidism 10/01/2011 Vitamin D deficiency 02/20/2011 Diverticulitis of sigmoid colon 12/08/2008 Abdominal pain 08/17/2008 Overview (08/10/2015): Other malaise and fatigue 08/17/2008 Resolved Problems Problem Noted Date Diagnosed Date Resolved Date Diabetes mellitus type II, uncontrolled 09/01/2012 11/05/2016 Immunizations Immunization Administration Dates Next Due INFLUENZA VACCINE, TRIV. (AF LURIA, FLUZONE TRIVALENT; 6MO+) (IIV3) 09/01/2012,10/01/2011,08/21/2010 PNEUMOCOCCAL PPSV23 08/06/2013 TDAP (7yrs+) 07/26/2014 Family History Medical History Relation Name Comments Hypertension Father Relation Name Status Comments Father htn Mother neuropathy, ost eoporosis Social History Tobacco Use Types Packs/Day Years Used Date Smoking Tobacco: Former Cigarettes Q uit: 06/12/2013 Smokeless Tobacco: Never Tobacco Cessation:Counseling Given: No Alcohol Use Standard Drinks/Week Comments No 0 (1 standard drink = 0.6 oz pur e alcohol) Comments No Sex and Gender Information Value Date Recorded Sex Assigned at Not on file Legal Sex Female 7:00 AM SENIOR WRITER Gender Identity Not on file Sexual Orientation Not on file Last Filed Vital Signs Vital Sign Reading Time Taken Comments Blood Pressure 130/52 01/16/2018 12:08 PM SENIOR WRITER Pulse 78 01/16/2018 12:08 PM SENIOR WRITER Temperature 37.1 C (98.8 F) 01/16/2018 12:08 PM SENIOR WRITER Respiratory Rate 18 01/16/2018 12:08 PM SENIOR WRITER Oxygen Saturation 95% 01/16/2018 12:08 PM SENIOR WRITER Inhaled Oxygen Concentration - - Weight 100.2 kg (221 lb) 01/14/2018 5:11 AM SENIOR WRITER Height 167.6 cm (5' 6 ) 01/14/2018 5:11 AM SENIOR WRITER Body Mass Index 35.67 01/14/2018 5:11 AM SENIOR WRITER Plan of Treatment Health Maintenance Due Date Last Done Comments COLOGUARD (AGES 45-75) - COLON CA SCREENING 1960 COLON MONITORING 1960 COLONOSCOPY - COLON CA SCREENING 1960 CT COLONOGRAPHY - COLON CA SCREENING 1960 Colorectal Cancer Screening 1960 FIT - COLON CA SCREENING 1960 FLEX SIG - COLON CA SCREENING 1960 MAMMOGRAM 1960 HIV SCREENING 1975 DIABETES-STATIN 2000 ZOSTER VACCINE (1 of 2) 2010 DIABETES RETINOPATHY SCREENING 09/01/2012 PNEUMOCOCCAL VACCINE 50+ (2 of 2 - PCV) 08/06/2014 08/06/2013 DIABETES-FOOT EXAM WITH MONOFILAMENT 10/28/2015 10/28/2014 DIABETES-HGB A1C 06/18/2016 12/19/2015, 05/2015, 11/01/2014, Additional history exists PAP SMEAR 11/04/2017 11/04/2014, 10/28/2014 DIABETES-SERUM CREATININE 01/16/20192017, 01/15/2018, 12/22/2017, Additional history exists Respiratory Syncytial Virus (RSV) Vaccine Pt: or over 60 yrs (1 - Risk 60-74 years 1-dose series) 2020 COVID-19 VACCINE ( - season) 2024 DTAP/TDAP/TD VACCINES (2 - Td or Tdap) 07/26/2024 07/26/2014 DEPRESSION SCREENING 11/10/2024 DIABETES - URINE PROTEIN SCREENING 11/10/2024 08/16/2015, 07/26/2014, 09/09/2012, Additional history exists MEDICARE AWV CALENDAR YEAR 2024 INFLUENZA VACCINE (Season Ended) 2025 09/01/2012, 10/01/2011, 08/21/2010 HEPATITIS C SCREENING Completed 07/26/2014 HEPATITIS B VACCINE Aged Out No longe r eligible based on patient's age to complete this topic HIB VACCINE Aged Out No longer eligi ble based on patient's age to complete this topic HPV VACCINE Aged Out No longer eligi ble based on patient's age to complete this topic MENINGOCOCCAL (Group B) VACCINE SHARED DECISION-MAKING Aged Out No longer eligible based on patient's age to complete this topic MENINGOCOCCAL GROUPS A/C/Y/W VACCINE Aged Out No longer eligible based on patient's age to complete this topic Goals Goal Patient Goal Type Associated Problems Recent Progress Patient-Stated? Author [facility] Lifestyle: Have labs drawn Lifestyle No Sadie Sanford MA Medical Devices Implanted Type Area Excellence Leader Device Identifier Shelf Expiration Date Model / Serial / Lot Cmnt Bone Cblt Gnta 40gm Med Vsc Strl Implanted:Qty: 1 on 01/14/2018 by Karthik Campos DO at [facility] Right: Knee [employer] 08/09/2019 [id number] / / [id number] Cmnt Bone Cblt Gnta 40gm Med Vsc Strl Implanted:Qty: 1 on 01/14/2018 by Karthik Campos DO at [facility] Right: Knee [employer] 08/09/2019 [id number] / / [id number] Posterior Stablized Legion Femoral Component Implanted:Qty: 1 on 01/14/2018 by Karthik Campos DO at [facility] Right: Knee 09/06/2027 [id number] / / [id number] Samanta Ii Non Porous Tibal Baseplate Implanted:Qty: 1 on 01/14/2018 by Karthik Campos DO at [facility] Right: Knee 11/12/2027 [id number] / / [id number] Samanta Ii Constrained Articular Insert Implanted:Qty: 1 on 01/14/2018 by Karthik Campos DO at [facility] Right: Knee 2027 [id number] / / [id number] Explanted Type Area Excellence Leader Device Identifier Shelf Expiration Date Model / Serial / Lot Ns Vis Adpt Guide Lgnp Kit Implanted:Qty: 1 Explanted:Qty: 1 on 01/14/2018 at [facility] Right: Knee 03/25/2018 [id number] / / [id number] Dominic Jim Tib Uncem Fem Explanted:Qty: 1 on 01/14/2018 at [facility] Right: Knee [employer] BILL ONLY JIM TIB UNCEM FEM SNORTHO / / Description:[id number] Procedures Procedure Name Priority Date/Time Associated Diagnosis Comments BASIC METABOLIC PANEL (CALCIUM TOTAL) AM Draw 01/16/2018 6:29 AM SENIOR WRITER HEMOGLOBIN A1C Routine 12/19/2015 8:58 AM SENIOR WRITER Diabetes mellitus type II, controlled, with no complications MICROALB/CREAT RATIO URINE RANDOM PANEL Routine 08/16/2015 11:27 AM CDT Annual physical exam Diabetes mellitus type II, uncontrolled Obesity Hypothyroidism due to acquired atrophy of thyroid Flank pain Encounter for screening mammogram for malignant neoplasm of breast Screen for colon cancer PAP SMEAR REPORT ORDER Routine 11/04/2014 HEPATITIS C ANTIBODY Routine 07/26/2014 2:24 PM CDT Need for hepatitis C screening test from Last 3 Months or Most Recently Relevant to Health Maintenance Results * (ABNORMAL) BASIC METABOLIC PANEL (CALCIUM TOTAL) (01/16/2018 6:29 AM SENIOR WRITER) Glucose 108(H) 74 - 106 mg/dL 01/16/2018 6:57 AM [facility] Sodium 139 136 - 145 mmol/L 01/16/2018 6:57 AM [facility] Potassium 4.0 3.5 - 5.1 mmol/L 01/16/2018 6:57 AM [facility] Chloride 105 98 - 107 mmol/L 01/16/2018 6:57 AM [facility] CO2 28 22 - 31 mmol/L 01/16/2018 6:57 AM [facility] Calcium 8.7 8.5 - 10.1 mg/dL 01/16/2018 6:57 AM [facility] Anion Gap 6(L) 8 - 16 mmol/L 01/16/2018 6:57 AM [facility] BUN 10 7 - 21 mg/dL 01/16/2018 6:57 AM [facility] Creatinine 0.82 0.50 - 1.30 mg/dL 01/16/2018 6:57 AM [facility] eGFR by MDRD >60 >60 mL/min/1.7 3m2 01/16/2018 6:57 AM [facility] eGFR by MDRD >60 >60 mL/min/1.7 3m2 01/16/2018 6:57 AM [facility] Blood BLOOD SPECIMEN / Unknown Lab Venipuncture / Unknown 01/16/2018 6:29 AM SENIOR WRITER 01/16/2018 6:35 AM SENIOR WRITER us Karthik Campos DO LAB - CHEMISTRY ORDERABLES Final Result [facility] [address] [place] [address] * (ABNORMAL) HEMOGLOBIN A1C (HgbA1C) (12/19/2015 8:58 AM SENIOR WRITER) Hemoglobin A1c 7.6(H) 4.2 - 6.3 % [facility] ACCOUNT BILL Comment:AVERAGE GLUCOSE MG/D L BLOOD 171 mg/dL Whole blood specimen (specimen) BLOOD SPECIMEN WITH EDTA / Unknown 12/19/2015 8:58 AM SENIOR WRITER 12/19/2015 3:56 PM SENIOR WRITER Narrative Resulting Agency Comment [facility] [address] [place] [id number] us Jacqui Blunt APRN-HATTIE LAB - CHEMISTRY LILLY MARCANO Final Result [facility] ACCOUNT BILL [address] [place] [address] * (ABNORMAL) MICROALB/CREAT RATIO URINE RANDOM PANEL (08/16/2015 11:27 AM CDT) Creatinine Urine 140 mg/dL LAB [facility] ACCOUNT BILL Microalbumin Urine 7.3 mg/dL [facility] ACCOUNT BILL Microalbumin/Crea tinine Ratio 52(H) <30 mg/g [facility] ACCOUNT BILL Urine specimen (specimen) URINE SPECIMEN OBTAINED BY CLEAN CATCH PROCEDURE / Unknown 08/16/2015 11:27 AM CDT 08/16/2015 4:01 PM CDT Narrative Resulting Agency Comment [facility] [address] [place] [id number] Linnea Sánchez MD LAB - URINE CHEMISTRY ORDERABLE S Final Result [facility] ACCOUNT BILL [address] [place] [address] * PAP SMEAR REPORT ORDER (11/04/2014) Linnea Sánchez MD LAB - PATHOLOGY/CYTOLOGY ORDERA BLES Final Result * HEPATITIS C ANTIBODY (07/26/2014 2:24 PM CDT) Hepatitis C Antibody NON-REACTI VE NON-REACT [facility] Signal to Cut-Off 0.03 <1.00 [facility] Comment: Test Performed at: [facility] [address] [place] [address] PEDRO STEWART DO,MPH Blood specimen (specimen) BLOOD SPECIMEN / Unknown 07/26/2014 2:24 PM CDT 07/27/2014 5:24 AM CDT Linnea Sánchez MD LAB - CHEMISTRY ORDERABLES Cindy l Result Performing Organization Address City/[facility]/ZIP Co de Phone Number [facility] [address] [place] [address] from Last 3 Months or Most Recently Relevant to Health Maintenance Insurance [facility] MANAGED MEDICARE ADV * Guarantor: MARYCHUY ZIEGLER Account Type Relation to Patient Date of Phone Billing Address Personal/Family [address] [place] [address] SELF PAY NO INSURANCE Member Subscriber Plan / Payer (Ef fective for All Dates) Name:Marychuy Ziegler Member ID:Not on file Relation to Subscriber:Not on file Name:MARYCHUY ZIEGLER Subscriber ID:Not on file Address: [address] [place] [address] Payer ID:Not on file Group ID:Not on file Type:Self Pay Address: [facility] MANAGED MEDICARE ADV * Guarantor: MARYCHUY ZIEGLER Account Type Relation to Patient Date of Phone Billing Address Personal/Family [address] [place] [address] SELF PAY NO INSURANCE Member Subscriber Plan / Payer (Ef fective for All Dates) Name:Marychuy Ziegler Member ID:Not on file Relation to Subscriber:Not on file Name:MARYCHUY ZIEGLER Subscriber ID:Not on file Address: [address] [place] [address] Payer ID:Not on file Group ID:Not on file Type:Self Pay Address: [facility] MANAGED MEDICARE ADV * Guarantor: MARYCHUY ZIEGLER Account Type Relation to Patient Date of Phone Billing Address Personal/Family [address] [place] [phone] SELF PAY NO INSURANCE Member Subscriber Plan / Payer (Ef fective for All Dates) Name:Marychuy Ziegler Member ID:Not on file Relation to Subscriber:Not on file Name:MARYCHUY ZIEGLER Subscriber ID:Not on file Address: [address] [place] [address] Payer ID:Not on file Group ID:Not on file Type:Self Pay Address: [facility] MANAGED MEDICARE ADV Advance Directives * Full Code (Latest Code Status on File) Date Activated Date Inactivated Comments 01/15/2016 6:18 PM 01/17/2016 2:47 PM Care Teams Ceramic Restorer Relationship Specialty Start Date End Date Jonatan Kaur MD [address] [place] [address] PCP - General Family Medicine 05/02/17 Karthik Campos DO [address] [place] [id number] Orthopedic Surgery 02/15/16
--- OUTSIDE RECORDS SUMMARY | 2025-04-05 12:08 | XMS_ITS | Encounter Summary ---
Author Organization [facility] Health Address [address] [place] [address] Care Team Providers Care Route Jumper Name Role Phone Linnea Sánchez MD Primary Care Provider [phone] Karthik Campos DO Unavailable [phone] Jonatan Kaur MD Primary Care Provider [phone] Apurva Lock PERMIT TECHNICIAN-REGISTERED ROUTE ASSOCIATE Unavailable [phone] Encounter Details Date Type Department Care Team (Late st Contact Info) Description 01/12/2016 [facility] Outpatient Visit [facility] Orthoped[facility] [address] [place] [address] Karthik Campos, DO [address] [place] [address] Social History Tobacco Use Types Packs/Day Years Used Date Smoking Tobacco: Former Cigarettes Q uit: 06/12/2013 Alcohol Use Standard Drinks/Week Comments No 0 (1 standard drink = 0.6 oz pur e alcohol) Comments No Sex and Gender Information Value Date Recorded Sex Assigned at Not on file Legal Sex Female 7:00 AM COIL WRAPPER Gender Identity Not on file Sexual Orientation Not on file documented as of this encounter Plan of Treatment Not on file documented as of this encounter Goals Goal Patient Goal Type Associated Problems Recent Progress Patient-Stated? Author [facility] Lifestyle: Have labs drawn Lifestyle No Sadie Sanford MA documented as of this encounter Visit Diagnoses Not on filedocumented in this encounter Care Teams Route Jumper Relationship Specialty Start Date End Date Linnea Sánchez MD [address] [facility] [place] [address] PCP - General 10/13/08 05/01/17 Jonatan Kaur MD [address] [place] [address] PCP - General Family Medicine 05/02/17 Apurva Lock APRN-REGISTERED ROUTE ASSOCIATE [address] [facility] [place] [address] PCP - Attributed-Ph[employer] 01/02/18 01/06/18 Karthik Campos DO [address] [place] [address] Orthopedic Surgery 02/15/16 documented as of this encounter
== END 2025-04-05 12:04 | disposition home or self-care (01) ==
PROVIDERS: PCP Family Medicine; Visit Provider Internal Medicine
DX: M06.9 Rheumatoid arthritis, unspecified (principal); M51.369 Other intervertebral disc degeneration, lumbar region without mention of lumbar back pain or lower extremity pain; M19.072 Primary osteoarthritis, left ankle and foot
CPT/HCPCS: 72110; 72202; 73130; 73620

== ENCOUNTER 2025-05-03 13:26 | Outpatient (CLI) | payer MEDICARE, SELFPAY ==
--- NOTE | ~2025-05-03 | DEXA_ITS ---
Bone Density Report Name: LILLIE MENDEZ Age: 64 Sex: Female Ethnicity: White Date of : 1960 Indication: postmenopausal; screening for osteoporosis; height loss; Referring Provider: KELSEA, NIKIA Snow Study: Bone densitometry was performed. Exam Date: May 03, 2025 Accession number: [id number] Bone Density: Region BMD T-score Z-score Classification AP Spine(L1-L4) 1.180 1.2 3.0 Normal Femoral Neck (Left) 0.802 -0.4 1.1 Normal Total Hip (Left) 0.940 0.0 1.2 Normal Femoral Neck (Right) 0.764 -0.8 0.7 Normal Total Hip (Right) 0.939 0.0 1.2 Normal Total Hip Mean 0.940 0.0 1.2 Normal World Health Organization criteria for BMD impression classify patients as: Normal (T-score at or above -1.0), Osteopenia (T-score between -1.0 and -2.5), or Osteoporosis (T-score at or below -2.5). 10-year Fracture Risk: FRAX not reported because: All T-scores for Spine Total, Hip Total, Femoral Neck at or above -1.0 Clinical Information Provided by Patient: Has used the following medications: Vitamin D, Calcium, LEVOTHYROXINE Patient maximum height was 67.0 Menopause Age: 55 Drinks caffeinated beverages Onset of menses at age 12 Number of children 2 Impression: The patient has normal bone mass. Discussion: BONE DENSITY IS ABOVE THE MINIMUM DESIRABLE LEVEL AT ALL SKELETAL SITES TESTED. This patient?s bone mineral density is above the minimum desirable level (T-score -1.0 or better) at all sites measured. The patient should follow a healthful lifestyle (good nutrition with adequate calcium and vitamin D, and appropriate weight-bearing exercise). Follow-Up: Consider repeating this study in 5 years or sooner if there is some new clinical indication. Reported by: TUYET on 05/03/2025 2:05:00 PM. Reviewed, dictated and finalized at location A.
== END 2025-05-03 13:27 | disposition home or self-care (01) ==
LOC: MICIMG 13:27
PROVIDERS: PCP Family Medicine; Visit Provider Family Medicine
DX: Z78.0 Asymptomatic menopausal state (principal)
CPT/HCPCS: 77080